=== PATIENT | male | born 1950 | race Caucasian/White ===

== ENCOUNTER 2023-12-24 01:10 | Emergency (ER) | payer MEDICARE, OTHER, SELFPAY ==
--- NOTE | 2023-12-24 01:13 | ED.GENMED ---
History of Present Illness
General
Chief Complaint: Heart Rate Problem
Time Seen by Provider: 12/24/23 01:13
History of Present Illness
History of Present Illness:
HPI: Patient presents with palpitations started about an hour prior to arrival, h/o atrial tachydysrhythmia, had cardioversion in May, then came here a few weeks later - admitted, had another cardioversion, then had ablation. Looks like AT today. He
takes Sotalol 80mg bid and Dilt 120mg bid (Toprol was stopped and dilt was decreased last admit).
EXAM:
GENERAL: Well appearing in no distress
HEENT: Moist oral mucosa
CARDIOVASCULAR: No murmurs, tachycardic heart rate, regular rhythm, No chest wall tenderness
PULMONARY: No respiratory distress, breath sounds are clear and equal
ABDOMEN: Soft with no peritoneal signs, no tenderness
NEUROLOGIC: Excellent strength all extremities, no coordination deficits
PSYCHIATRIC: Appropriate mental status, normal insight and judgement
EXTREMITIES: Nontender, no edema, moves all extremities equally
SKIN: No rash, no lesions
TIME OF INITIAL ENCOUNTER: 1 AM
NUMBER AND COMPLEXITY OF PROBLEMS ADDRESSED AT THE ENCOUNTER
� Chronic conditions affecting care: A-fib/flutter, CHF, high blood pressure, diabetes
� Acute Exacerbation and/or Progression of Chronic Illness: This is an acute but recurring problem
� Differential Diagnosis includes: Atrial dysrhythmia, electrolyte abnormality, ACS unlikely
AMOUNT AND/OR COMPLEXITY OF DATA TO BE REVIEWED AND ANALYZED
� I performed an independent evaluation of and my interpretation is:
EKG: Atrial tachycardia, rate of 107
CT:
X-rays:
Laboratory Studies: Chemistries including magnesium unremarkable, troponin negative
Other:
� Review of other/old records: I reviewed records�it appears he was cardioverted on 05/22 and 06/06 but then came back in cardiology recommended admission. I reviewed discharge summary from this past June�at that time the
patient came to the ER with shortness of breath and has had 'complex atrial tachyarrhythmia and underwent multiple medications, ablation, cardioversion in the past'. Records indicate the patient has been on Tikosyn, Amio, sotalol in the past
� Clinical information was obtained by an independent historian: Spoke to the son at bedside
� Prescriptions/Medications Considered but not given:
� Further testing considered but not performed:
RISK OF COMPLICATIONS AND/OR MORBIDITY OR MORTALITY OF PATIENT MANAGEMENT
� Social determinants of health affecting care: Lives at home
� Discussion with other providers: I discussed case with Dr. Novak at 2:10 AM�he recommends electrical cardioversion then resume anticoagulation immediately.
� Escalation of care including admission/observation vs risk of discharge considered: I reviewed patient's records extensively. He appears to be rather complex from a rhythm standpoint. He states he has been taking sotalol and
diltiazem. Dr. Novak recommends electrical cardioversion�patient signed form consent at 2:20 a.m. cardioversion performed at 2:26 AM without difficulty. Repeat EKG shows sinus rhythm rate of 66. Patient primarily concerned of anxiety/insomnia
when going home. I prefer to hold off on any sedative since he just had procedural sedation now.
Past History
Past History
ED Past Medical History: Arrthythmia, GERD, HTN, NIDDM and Other
ED Past Surgical History: Cardiac and Orthopedic
Social History
Tobacco: Former smoker
Alcohol: Occasional
Drug: None
Personal:
Living: with family
Employment: Retired
Family History
Family History: Other (Noncontributory)
Phy Exam
Physical Exam
Physical Exam:
See HPI
Course
Orders/Labs/Results
Orders:
Orders
12/24/23 01:13
Electrocardiogram (*1) Urgent
Reason for Study: Atrial Flutter
EKG- Treatment ONCE
12/24/23 01:40
Basic Metabolic Panel Urgent
Complete Blood Count/With Diff Urgent
Magnesium Urgent
Troponin I Q6H
12/24/23 01:45
Diltiazem 125 mg/125 ml Nss [Cardizem] 125 mg in 125 ml IV PER PROTOCOL
Initial dose in mg/hr, then titrate:: 10
Titrate to keep:: Heart rate 80-100 bpm
Titrate by mg/hr:: 5 mg/hr
Frequency of titrations (minutes):: 15
Maximum dose in mg/hr:: 15
12/24/23 02:19
Propofol [Diprivan] 20 ml .ROUTE .STK-MED
12/24/23 02:32
ASA Classification Routine
Propofol [Diprivan] 40 mg IV NOW STA
12/24/23 02:34
Rivaroxaban [Xarelto] 20 mg PO NOW STA
12/24/23 07:30
Troponin I Q6H
12/24/23 13:30
Troponin I Q6H
12/24/23 19:30
Troponin I Q6H
Abnormal Lab Results
12/24/23
01:40
RBC 4.40 L 10^6/uL
(4.70-6.10)
Absolute Monos (auto) 1.0 H 10^3/uL
(0.1-0.6)
Monocytes % 11.9 H %
(1.7-9.3)
Glucose 111 H mg/dl
(70-99)
12/24/23 01:40
12/24/23 01:40
Vital Signs
Initial and Last Documented VS:
Initial Vital Signs
Temp Pulse Resp BP Pulse Ox
97.5 F 110 18 118/80 97
12/24/23 01:14 12/24/23 01:14 12/24/23 01:14 12/24/23 01:14 12/24/23 01:14
Last Documented Vital Signs
Temp Pulse Resp BP Pulse Ox
98.6 F 63 20 107/68 98
12/24/23 02:25 12/24/23 02:47 12/24/23 02:47 12/24/23 02:47 12/24/23 02:47
Procedures
Cardioversion
Indication:: Other (Atrial tachycardia)
Performed by:: , Dr. Can
Synchronized?: Yes
Energy Used: 200 joules
Number of attempts: 1
Successful?: Yes
ASA Risk Score: Class III
Any reaction or bad outcome to prior sedation/anesthesia?: No history of a reaction
Sedation level to be attained: moderate
Chart and allergies reviewed: Yes
Patient reassessed prior to sedation: Yes
Time out completed at (validating right patient & procedure): 02:25
History of difficult intubation: No
Airway free of obstruction: Yes
Patient has a gag reflex: Yes
Patient is able to open mouth: Yes
Patient has no dentures: Yes
Patient has no loose teeth: Yes
Medication administered by Provider during Moderate Sedation: IV Propofol (mg) (40)
Total dose administered: 40
Time drug administered: 02:26
Start Time: 02:26
Stop Time: 02:31
*Critical Care Note
Total Time (30-74mins, 75-104mins- exclusive of procedures): Not Applicable
ED Attending Note
-
Portions of this chart may have been created with voice recognition software.� Occasional wrong word or��sound alike� substitutions may have occurred due to the inherent limitations of voice recognition software.
Discharge Plan
Departure
Patient Disposition: Home (Routine Discharge)
Date of Disposition: 12/24/23
Time of Disposition: 02:36
Patient with high blood pressure during this ER visit?: Yes
Discharge Problem:
Atrial tachycardia
Instructions: Atrial Fibrillation and Atrial Flutter ED
Prescriptions:
New
Xarelto 20 mg tablet
20 mg PO QPM Qty: 30 0RF
No Action
Probiotic 3 billion cell Capsule
3,000 mmu cells PO DAILY
latanoprost 0.005 % Drops
1 drp BOTH EYES HS
loratadine [Claritin] 10 mg Tablet
10 mg PO DAILY
omeprazole 40 mg Capsule,Delayed Release(Dr/Ec)
40 mg PO DAILY@1730
diltiazem HCl 120 mg Capsule,Extended Release 24 Hr
120 mg PO BID
sotalol 80 mg Tablet
80 mg PO BID
famotidine 20 mg Tablet
20 mg PO DAILY
aspirin 81 mg Tablet,Delayed Release (Dr/Ec)
81 mg PO DAILY@1730
lisinopril 5 mg tablet
5 mg PO DAILY
Activity Restrictions/Additional Instructions:
Your initial EKG showed atrial tachycardia. I spoke to Dr. Novak who recommended electrical cardioversion�this was performed successfully. You must go back on Xarelto. I am sending a prescription to your pharmacy. Next dose Friday evening.
Consider taking [id number] Unisom (the type with doxylamine as the active ingredient) at night to help sleep.
Interventions
Interventions:
*Neglect/Abuse Screening Last Done: 12/24/23 01:19
ED- Fall Risk Assessment Last Done: 12/24/23 01:45
*ED COVID-19 Vaccine History Last Done: 12/24/23 01:45
ED- Cardiac Assessment Last Done: 12/24/23 01:45
ED- Pulmonary Assessment Last Done: 12/24/23 01:45
[2023-12-24 01:58] LABS: % Basophils 0.6 % (0-2); % Eosinophils 2.5 % (0-6); % Immature Granulocytes 0.2 % (0-0.5); % Lymphocytes 28.9 % (20.5-51.1); % Monocytes 11.9 % (1.7-9.3); % Neutrophils 55.9 % (42.2-75.2); Absolute Basophils 0.1 10^3/uL (0-0.2); Absolute Eosinophils 0.2 10^3/uL (0-0.7); Absolute Lymphocytes 2.4 10^3/uL (1.2-3.4); Absolute Neutrophils 4.7 10^3/uL (1.4-6.5); Hematocrit 39.1 % (39.0-52.0); Hemoglobin 13.2 g/dL (13.0-18.0); Mean Corp Hgb Conc. 33.8 g/dL (33.0-37.0); Mean Corpuscular Volume 88.9 fL (80.0-94.0); Mean Platelet Volume 10.2 fL (7.4-10.4); Nucleated Red Blood Cells % 0 % (-); Platelet Count 182 10^3/uL (130-400); Red Cell Dist. Width 12.4 % (11.5-14.5); White Blood Cell Count 8.4 10^3/uL (4.8-10.8)
[2023-12-24] MEDS: CARDIZEM 125 IV (02:05)
[2023-12-24] MEDS: CARDIZEM IV (02:08)
[2023-12-24 02:10] LABS: Blood Urea Nitrogen 17 mg/dl (9-20); Calcium 8.9 mg/dl (8.4-10.2); Carbon Dioxide 24 mmol/L (22-30); Chloride 107 mmol/L (98-107); Glucose 111 mg/dl (70-99); Magnesium 1.9 mg/dl (1.6-2.3); Potassium 3.9 mmol/L (3.5-5.1); Sodium 136 mmol/L (135-145); eGFR > 60.00
[2023-12-24 02:16] LABS: Troponin I < 0.012 ng/ml
[2023-12-24] MEDS: DIPRIVAN 40 MG IV (02:27)
[2023-12-24] MEDS: XARELTO 20 MG PO (03:19)
== END 2023-12-24 03:53 | disposition home or self-care (01) ==
LOC: EMR 01:10
PROVIDERS: EMERGENCY PHYSICIAN Emergency Medicine; FAMILY PHYSICIAN Family Medicine
DX: I47.19 Other supraventricular tachycardia (principal)
CPT/HCPCS: 99283; 96374; 96375; 80048; 83735; 84484; 85025; 93005

== ENCOUNTER 2023-12-27 20:06 | Emergency (ER) | payer MEDICARE, OTHER, SELFPAY ==
[2023-12-27 20:21] LABS: % Basophils 0.7 % (0-2); % Eosinophils 2.5 % (0-6); % Immature Granulocytes 0.3 % (0-0.5); % Lymphocytes 22.7 % (20.5-51.1); % Monocytes 11.6 % (1.7-9.3); % Neutrophils 62.2 % (42.2-75.2); Absolute Basophils 0.1 10^3/uL (0-0.2); Absolute Eosinophils 0.2 10^3/uL (0-0.7); Absolute Lymphocytes 2.2 10^3/uL (1.2-3.4); Absolute Monocytes 1.1 10^3/uL (0.1-0.6); Hematocrit 43.4 % (39.0-52.0); Hemoglobin 14.6 g/dL (13.0-18.0); Mean Corp Hgb Conc. 33.6 g/dL (33.0-37.0); Mean Corpuscular Hgb 30.6 pg (27.0-31.0); Mean Platelet Volume 9.6 fL (7.4-10.4); Nucleated Red Blood Cells % 0 % (-); Platelet Count 193 10^3/uL (130-400); Red Blood Cell Count 4.77 10^6/uL (4.70-6.10); Red Cell Dist. Width 12.4 % (11.5-14.5); White Blood Cell Count 9.6 10^3/uL (4.8-10.8)
--- NOTE | 2023-12-27 20:33 | ED.GENMED ---
History of Present Illness
General
Chief Complaint: Cardiac Symptoms
Source: patient
Exam Limitations: none
Time Seen by Provider: 12/27/23 20:17
Travel History
Have you had any contact with someone who has COVID-19?: No
Do you have any symptoms of coronavirus? Fever > 100 degrees, chills, cough, shortness of breath, sore throat, loss of taste or smell, muscle aches, or headache?: No
History of Present Illness
History of Present Illness:
See MDM
Past History
Past History
ED Past Medical History: Arrthythmia, GERD, HTN, NIDDM and Other
ED Past Surgical History: Cardiac and Orthopedic
Social History
Tobacco: Former smoker
Alcohol: Occasional
Drug: None
Personal:
Living: with family
Employment: Retired
Family History
Family History: Other (Noncontributory)
Phy Exam
Physical Exam
Physical Exam:
See MDM
Course
Orders/Labs/Results
Orders:
Orders
12/27/23 20:11
Electrocardiogram (*1) Urgent
Reason for Study: Palpitations
EKG- Treatment ONCE
12/27/23 20:15
Complete Blood Count/With Diff Urgent
Comprehensive Metabolic Panel Urgent
Troponin I Urgent
Abnormal Lab Results
12/27/23
20:15
Absolute Monos (auto) 1.1 H 10^3/uL
(0.1-0.6)
Monocytes % 11.6 H %
(1.7-9.3)
Glucose 107 H mg/dl
(70-99)
12/27/23 20:15
12/27/23 20:15
Vital Signs
Initial and Last Documented VS:
Initial Vital Signs
Temp Pulse Resp BP Pulse Ox
97.6 F 77 16 134/72 97
12/27/23 20:08 12/27/23 20:08 12/27/23 20:08 12/27/23 20:08 12/27/23 20:08
Last Documented Vital Signs
Temp Pulse Resp BP Pulse Ox
97.6 F 76 15 134/72 97
12/27/23 20:08 12/27/23 20:15 12/27/23 20:15 12/27/23 20:10 12/27/23 20:08
MDM/Problems Addressed
Differential Diagnosis Includes:
HPI and MDM Narrative:
73-year-old male presenting back to the emergency department with palpitations. Patient has a longstanding history of A-fib and a flutter and has had 4 ablations in the past. He was recently seen in the emergency department last week and
cardioverted and placed back on Xarelto. He is currently on 120 mg diltiazem twice daily and 80 mg sotalol twice daily. Patient states his stitch bonding machine operator had mentioned no more ablations and is recommending pacemaker. Patient states he is not ready
with this plan. Patient felt indigestion and chest pressure while at home. He believes he was back in a flutter. His heart rate was in the 140s. It resolved on its own within 20 minutes.
Physical exam
General: Well appearing and non-toxic
HEENT: protecting airway
Neck: appears supple
CV: No evidence of cyanosis. Regular rate and rhythm
Resp: No accessory muscle use
Abd: Non-distended
Extremities: No deformities
Neuro: alert
Psych: Agitated and frustrated
Skin: Intact
Problems Addressed including Acute and Chronic Conditions affecting care:
1. Paroxysmal A-fib
Acuity: acute
Prognosis: stable
Details: Patient auto converted. EKG is sinus rhythm. Patient demanding to speak to cardiology. I will discuss the case with cardiology first
2. [ ]
Acuity: acute
Prognosis: stable
Details:
3. [ ]
Acuity: acute
Prognosis: stable
Details:
4. [ ]
Acuity: acute
Prognosis: stable
Details:
5. [ ]
Acuity:
Prognosis:
Details:
Updates
Case discussed with cardiology who agrees with not making any changes to his blood pressure medicine regimens and to have patient call his stitch bonding machine operator first thing Friday to discuss options moving forward
Patient is frustrated with this response and asked to be discharged as soon as possible. Patient has remained in sinus rhythm throughout his ER stay
Differential Diagnosis (but not limited to): Paroxysmal A-fib, atrial tachycardia, PVCs
Testing considered: Chest x-ray but he denies chest pain shortness of breath
Drug therapy (if applicable): OTC meds, please see d/c instruction regarding Rx drugs
Amount and/or Complexity of Data Reviewed
Clinical info obtained from: Patient
External data reviewed: N/A
Labs I independently reviewed (but not limited to): Troponin negative
Radiology: N/A
Pulse Ox: not hypoxic
EKG independently reviewed: Sinus rhythm, PACs, normal axis, no STEMI
Service Station Console Operator: Sinus rhythm
Critical Care: N/A
Risk of Complication:
Social Determinants of health: Good social support
Discussed with other providers: Cardiology
Escalation of Care includes Admit/Obs: After being observed in the Emergency Department, pt stable for discharge.
Occasional wrong word or 'sound a like' substitutions may have occurred due to the inherent limitations of voice recognition software. Read the chart carefully and recognize, using context, where substitutions have occurred.
*Critical Care Note
Total Time (30-74mins, 75-104mins- exclusive of procedures): Not Applicable
ED Attending Note
-
Portions of this chart may have been created with voice recognition software.� Occasional wrong word or��sound alike� substitutions may have occurred due to the inherent limitations of voice recognition software.
Discharge Plan
Departure
Patient Disposition: Home (Routine Discharge)
Date of Disposition: 12/27/23
Time of Disposition: 21:12
Patient with high blood pressure during this ER visit?: No
Discharge Problem:
Paroxysmal atrial fibrillation
Prescriptions:
No Action
Probiotic 3 billion cell Capsule
3,000 mmu cells PO DAILY
latanoprost 0.005 % Drops
1 drp BOTH EYES HS
loratadine [Claritin] 10 mg Tablet
10 mg PO DAILY
omeprazole 40 mg Capsule,Delayed Release(Dr/Ec)
40 mg PO DAILY@1730
diltiazem HCl 120 mg Capsule,Extended Release 24 Hr
120 mg PO BID
sotalol 80 mg Tablet
80 mg PO BID
famotidine 20 mg Tablet
20 mg PO DAILY
aspirin 81 mg Tablet,Delayed Release (Dr/Ec)
81 mg PO DAILY@1730
lisinopril 5 mg tablet
5 mg PO DAILY
Xarelto 20 mg tablet
20 mg PO QPM Qty: 30 0RF
Referrals:
Graham Adams MD [Family Provider] -
Activity Restrictions/Additional Instructions:
As we discussed, please call your cardiology office first thing Friday morning. Please explain that you continue to have recurrent episodes of A-fib/A flutter. Please explain you came back to the emergency department and the on-call stitch bonding machine operator
suggested that you follow-up with your stitch bonding machine operator soon as possible.
Please return for any worsening symptoms.
You may return at any time if you have further concerns.
Interventions
Interventions:
*Risk Screen - Suicide Last Done: 12/27/23 20:08
*General Assessment Last Done: 12/27/23 20:08
*Neglect/Abuse Screening Last Done: 12/27/23 20:08
*ED COVID-19 Vaccine History Last Done: 12/27/23 20:08
ED- Pulmonary Assessment Last Done: 12/27/23 20:23
ED- Cardiac Assessment Last Done: 12/27/23 20:23
[2023-12-27 20:44] LABS: Troponin I < 0.012 ng/ml
[2023-12-27 20:48] LABS: ALT (SGPT) 12 U/L (0-50); AST (SGOT) 19 U/L (17-59); Albumin 4.2 g/dl (3.5-5.0); Alkaline Phosphatase 62 U/L (38-126); Blood Urea Nitrogen 20 mg/dl (9-20); Carbon Dioxide 24 mmol/L (22-30); Chloride 105 mmol/L (98-107); Glucose 107 mg/dl (70-99); Potassium 3.5 mmol/L (3.5-5.1); Sodium 137 mmol/L (135-145); Total Bilirubin 0.4 mg/dl (0.2-1.3); Total Protein 6.8 g/dl (6.3-8.2); eGFR > 60.00
== END 2023-12-27 21:25 | disposition home or self-care (01) ==
LOC: EMR 20:06
PROVIDERS: EMERGENCY PHYSICIAN Student in an Organized Health Care Education/Training Program; FAMILY PHYSICIAN Family Medicine
DX: I48.0 Paroxysmal atrial fibrillation (principal); Z87.891 Personal history of nicotine dependence; Z79.01 Long term (current) use of anticoagulants
CPT/HCPCS: 99284; 80053; 84484; 85025; 93005

== ENCOUNTER 2024-04-08 22:55 | Inpatient (IN) | payer MEDICARE, OTHER, SELFPAY ==
[2024-04-08 18:43] VITALS: BP 118/54
[2024-04-08 18:47] VITALS: BMI 35.4
[2024-04-08 18:51] VITALS: BP 118/54
[2024-04-08 19:00] VITALS: BP 127/64
[2024-04-08 19:07] LABS: % Basophils 0.2 % (0-2); % Eosinophils 1.3 % (0-6); % Immature Granulocytes 0.8 % (0-0.5); % Lymphocytes 14.5 % (20.5-51.1); % Neutrophils 68.2 % (42.2-75.2); Absolute Eosinophils 0.2 10^3/uL (0-0.7); Absolute Immature Granulocytes 0.1 10^3/uL (0-0.05); Absolute Lymphocytes 1.7 10^3/uL (1.2-3.4); Absolute Monocytes 1.8 10^3/uL (0.1-0.6); Absolute Neutrophils 8.2 10^3/uL (1.4-6.5); Hematocrit 35.2 % (39.0-52.0); Hemoglobin 11.9 g/dL (13.0-18.0); Mean Corp Hgb Conc. 33.8 g/dL (33.0-37.0); Mean Corpuscular Hgb 29.6 pg (27.0-31.0); Mean Corpuscular Volume 87.6 fL (80.0-94.0); Nucleated Red Blood Cells % 0 % (-); Platelet Count 157 10^3/uL (130-400); Red Blood Cell Count 4.02 10^6/uL (4.70-6.10); Red Cell Dist. Width 13.6 % (11.5-14.5)
[2024-04-08 19:21] LABS: INR 1.23; PT 15.5 Sec (11.4-14.6)
[2024-04-08 19:23] LABS: ALT (SGPT) 10 U/L (0-50); AST (SGOT) 13 U/L (17-59); Albumin 3.3 g/dl (3.5-5.0); Alkaline Phosphatase 63 U/L (38-126); Blood Urea Nitrogen 22 mg/dl (9-20); Calcium 8.3 mg/dl (8.4-10.2); Carbon Dioxide 23 mmol/L (22-30); Chloride 106 mmol/L (98-107); Estimated Creatinine Clearance 85 ml/min; Glucose 130 mg/dl (70-99); Potassium 4.2 mmol/L (3.5-5.1); Sodium 134 mmol/L (135-145); Total Bilirubin 0.8 mg/dl (0.2-1.3); Total Protein 5.7 g/dl (6.3-8.2); eGFR > 60.00
--- NOTE | 2024-04-08 19:24 | ED.GENMED ---
History of Present Illness
General
Chief Complaint: Chest Pain
Source: patient
Exam Limitations: none
Time Seen by Provider: 04/08/24 18:55
History of Present Illness
History of Present Illness:
74-year-old male with history of atrial fibrillation and flutter history of cardioversions in the past presents complaining of onset of chest pain while driving home after visiting his in this. It was a pressure pain that radiated to his
shoulder blades and up his neck. He became sweaty with this pain. He got home and called EMS and was brought here. En route he was given 324 mg of aspirin and 1 sublingual nitro. He states there is improvement of his symptoms but his symptoms
are completely gone. No prior history of coronary artery disease. No pleuritic pain. He states his is under hospice care as his son is also admitted to the hospital. He is under significant mental stress.
Past History
Past History
ED Past Medical History: Arrthythmia, GERD, HTN, NIDDM and Other
ED Past Surgical History: Cardiac and Orthopedic
Social History
Tobacco: Former smoker
Alcohol: Occasional
Drug: None
Personal:
Living: with family
Employment: Retired
Family History
Family History: Other (Noncontributory)
Phy Exam
Physical Exam
Physical Exam:
General: Well-appearing slightly tearful male no acute respiratory distress
HEENT: Normocephalic atraumatic
Heart: Regular rate and rhythm no murmurs
Lungs: Clear no wheeze or rales
Extremities: No cyanosis or edema
Scores
Heart Score for Chest Pain Patients
STEMI patient?: No
History: Moderately Suspicious
ECG: Nonspecific Repolarization
Age: >/= 65 years
Risk Factors: 1 or 2 Risk Factors
Troponin: >1 - <3 x Normal Limit
Heart Score for Chest Pain Patients: 6
Heart Score Risk: 20.3% MACE over next 6 weeks
Course
Orders/Labs/Results
Orders:
Orders
04/08/24 18:45
EKG [Electrocardiogram (*1)] Urgent
Reason for Study: Chest Pain
04/08/24 18:46
EKG- Treatment ONCE
04/08/24 18:59
Complete Blood Count/With Diff Urgent
Comprehensive Metabolic Panel Urgent
PT/INR [Prothrombin Time] Urgent
Troponin I Urgent
04/08/24 19:23
CT Chest Angio W/wo Iv Contras Urgent
Comment:
Reason For Exam: chest and back pain, eval for dissection
Diphenhydramine [Benadryl] 50 mg IV NOW STA
Hydrocortisone Sod Succinate [Solu-Cortef] 200 mg IV NOW STA
04/08/24 19:26
Interrogate Pacemaker- Treatment ONCE
04/08/24 21:23
Troponin I Urgent
04/08/24 22:08
Electrocardiogram (*1) Urgent
Reason for Study: Chest Pain
EKG- Treatment ONCE
04/08/24 22:19
PTT Urgent
Comment: Obtain baseline before beginning heparin infusion if not already collected
Heparin 4,000 units IV NOW STA
Pharmacy Request to Place See Dose Instructions PO NOW STA
Discontinue all Active Warfarin orders?: Yes
Nursing to Place Non Medication Order As Directed
Physician Order: PTT 6 hours after initial start of Heparin infusion
04/08/24 22:30
Heparin 29500 Units/250 ml 25,000 units in 250 ml IV PER PROTOCOL
Weight to be used for heparin protocol in kilograms (kg):: 96.4
Protocol:: Cardiac Tx/Acute Coronary
PTT Goal Range to be used:: PTT 73 to 111 seconds
Order type:: Initial
INITIAL Infusion Dose (UNITS/KG/hr) & then follow protocol:: 12 units/kg/hr
Infusion Dose in UNITS/hr & then follow protocol (UNITS/hr):: 1,000
INFUSION RATE in mL/hr & then follow protocol (mL/hr):: 10
PTT less than or equal to 64 seconds:: Increase rate by 200 units/hr (+ 2 mL/hr)
PTT 64.1 to 72.9 seconds:: Increase rate by 100 units/hr (+ 1 mL/hr)
PTT 73 to 111 seconds:: Target Range. No change in rate.
PTT 111.1 to 130.9 seconds:: Decrease rate by 100 units/hr (- 1 mL/hr)
PTT 131 to 199.9 seconds:: HOLD for 1 hr. Then decrease rate by 200 units/hr (- 2 mL/hr)
PTT greater than or equal to 200 seconds:: HOLD for 2 hrs & Notify Provider. Then decrease by 200 units/hr (-
2 mL/hr)
Lab follow-up:: Each change, PTT q6h until 2 consecutive are therapeutic. Then PTT
daily.
04/08/24 23:[address] See Dose Instructions IV DIRECTED
Abnormal Lab Results
04/08/24 04/08/24
18:59 21:23
WBC 12.0 H 10^3/uL
(4.8-10.8)
RBC 4.02 L 10^6/uL
(4.70-6.10)
Hgb 11.9 L g/dL
(13.0-18.0)
Hct 35.2 L %
(39.0-52.0)
Abs Immat Gran (auto) 0.1 H 10^3/uL
(0-0.05)
Absolute Neuts (auto) 8.2 H 10^3/uL
(1.4-6.5)
Absolute Monos (auto) 1.8 H 10^3/uL
(0.1-0.6)
Immature Gran % 0.8 H %
(0-0.5)
Lymphocytes % 14.5 L %
(20.5-51.1)
Monocytes % 15.0 H %
(1.7-9.3)
PT 15.5 H Sec
(11.4-14.6)
Sodium 134 L mmol/L
(135-145)
BUN 22 H mg/dl
(9-20)
Glucose 130 H mg/dl
(70-99)
Calcium 8.3 L mg/dl
(8.4-10.2)
AST 13 L U/L
(17-59)
Troponin I 1.190 H* D ng/ml
Total Protein 5.7 L g/dl
(6.3-8.2)
Albumin 3.3 L g/dl
(3.5-5.0)
04/08/24 18:59
04/08/24 18:59
Vital Signs
Initial and Last Documented VS:
Initial Vital Signs
Pulse Resp BP Pulse Ox
66 18 118/54 98
04/08/24 18:43 04/08/24 18:43 04/08/24 18:43 04/08/24 18:43
Last Documented Vital Signs
Temp Pulse Resp BP Pulse Ox
99.4 F 61 11 138/60 95
04/08/24 18:51 04/08/24 22:15 04/08/24 22:15 04/08/24 22:00 04/08/24 21:15
MDM/Problems Addressed
Differential Diagnosis Includes:
Chest pain with shoulder and neck pain. Consider ACS versus dissection versus anxiety reaction
Will check EKG labs and CT angio of chest
*Critical Care Note
Total Time (30-74mins, 75-104mins- exclusive of procedures): Not Applicable
Update Note
Update Note:
CT angio of the chest was negative for dissection. Initial troponin was undetectable however repeat troponin was 1.190. Patient reevaluated. Still pain-free. Heparin ordered. Will admit to hospital for chest pain and elevated troponin possible
non-STEMI
ED Attending Note
-
Portions of this chart may have been created with voice recognition software.� Occasional wrong word or��sound alike� substitutions may have occurred due to the inherent limitations of voice recognition software.
Discharge Plan
Departure
Patient Disposition: Admit
Date of Disposition: 04/08/24
Time of Disposition: 22:24
Admit to: IVU
Presentation/result/management discussed w/ accepting MD/DO: Hospitalist
Discharge Problem:
Chest pain, Elevated troponin
Prescriptions:
No Action
Probiotic 3 billion cell Capsule
3,000 mmu cells PO DAILY
latanoprost 0.005 % Drops
1 drp BOTH EYES HS
loratadine [Claritin] 10 mg Tablet
10 mg PO DAILY
omeprazole 40 mg Capsule,Delayed Release(Dr/Ec)
40 mg PO DAILY@1730
diltiazem HCl 120 mg Capsule,Extended Release 24 Hr
120 mg PO BID
sotalol 80 mg Tablet
80 mg PO BID
famotidine 20 mg Tablet
20 mg PO DAILY
aspirin 81 mg Tablet,Delayed Release (Dr/Ec)
81 mg PO DAILY@1730
lisinopril 5 mg tablet
5 mg PO DAILY
Xarelto 20 mg tablet
20 mg PO QPM Qty: 30 0RF
Patient Comments:
Pt stopped medication 7/3 per doctor.
furosemide 40 mg Tablet
40 mg PO DAILY PRN (Reason: swelling )
acetaminophen [Tylenol] 325 mg Tablet
650 mg PO Q6H PRN (Reason: pain )
tadalafil 5 mg Tablet
5 mg PO DAILY
Referrals:
Graham Adams MD [Family Provider] -
Interventions
Interventions:
*Risk Screen - Suicide Last Done: 04/08/24 20:38
*General Assessment Last Done: 04/08/24 20:39
*Neglect/Abuse Screening Last Done: 04/08/24 20:38
ED- Fall Risk Assessment Last Done: 04/08/24 19:05
*ED COVID-19 Vaccine History Last Done: 04/08/24 20:39
ED- Cardiac Assessment Last Done: 04/08/24 19:05
Discharge Date and Time
Print Language: [id number]
[2024-04-08] MEDS: SOLU-CORTEF 200 MG IV (19:26)
[2024-04-08] MEDS: BENADRYL 50 MG IV (19:26)
[2024-04-08 19:31] LABS: Troponin I < 0.012 ng/ml
[2024-04-08 20:00] VITALS: BP 126/56
[2024-04-08 21:26] VITALS: BP 129/62
[2024-04-08 22:00] VITALS: BP 138/60
--- NOTE | 2024-04-08 22:30 | HPS.HSE ---
Family Physician
-
Family Physician: Graham Adams
Chief Complaint
-
chest pain
History of Present Illness
Mr. Jacobo Carrero is a 74 yo man with hx paroxysmal atrial fibrillation/flutter on Xarelto, essential HTN, GERD, NIDDM presents to the ER with chest pain.
Patient was leaving his who is now in hospice. On the drive home he started experiencing chest tightness that stretched across chest, radiated to back and up neck. Once he got home he called 911 and was given aspirin and nitro. Post these
interventions, pain resolved. He currently reports no pain.
He denies current fevers/chills. No nausea/vomiting. No abdominal pain. No LE swelling, no rash.
Patient states his son now is also hospitalized. He feels very stressed and overwhelmed. He took an Ativan last night to help him sleep. Per patient, this was recently prescribed by his PCP.
Patient saw his scientologist yesterday. He remains in sinus rhythm (has hx PVI and ablation) and was told he can stop the Xarelto so he missed one dose yesterday.
Medical History
Past Medical History
Past Medical History: Reports Other
Additional Past Medical History:
paroxysmal atrial flutter, history of atrial fibrillation with PVI x3, essential hypertension, ZARIA not compliant with CPAP, mitral stenosis, obesity, osteoarthritis, history of left TKR
Past Surgical History: Reports Other
Social History
Tobacco: Non-smoker
Alcohol: None
Drug: None
Living: With Family
Family History
Family History: Not pertinent
Allergies / Home Medications
Allergies reflects when Allergies were last updated in [employer].
Home Medications with original date entered in [employer]
Allergy/Medication List:
Allergies
Allergy/AdvReac Type Severity Reaction Status Date / Time
amiodarone Allergy sleeplessness, Verified 12/24/23 01:23
acid reflux
azithromycin Allergy Loss of Verified 12/24/23 01:23
smell,
loss of
taste,
metal
taste in
mouth
dofetilide [From Tikosyn] Allergy GERD Verified 12/24/23 01:23
Iodinated Contrast Media Allergy Itching Verified 12/24/23 01:23
[Iodinated Contrast- Oral
and IV Dye]
iodine Allergy Itching Verified 12/24/23 01:23
Home Medications
lactobacillus combination no.4 3 billion cell capsule (Probiotic) 3,000 mmu cells PO DAILY Supplement 12/26/22
latanoprost 0.005 % eye drops 1 drp BOTH EYES HS Eye Condition 04/17/23
loratadine 10 mg tablet (Claritin) 10 mg PO DAILY Allergies 04/18/23
diltiazem HCl 120 mg capsule,24 hr,extended release 120 mg PO BID Heart Disease/Condition 06/09/23
omeprazole 40 mg capsule,delayed release 40 mg PO DAILY@1730 GERD 06/09/23
famotidine 20 mg tablet 20 mg PO DAILY 06/17/23
sotalol 80 mg tablet 80 mg PO BID 06/17/23
aspirin 81 mg tablet,delayed release 81 mg PO DAILY@1730 10/03/23
lisinopril 5 mg tablet 5 mg PO DAILY 10/03/23
rivaroxaban 20 mg tablet (Xarelto) 20 mg PO QPM #30 tabs 12/24/23
acetaminophen 325 mg tablet (Tylenol) 650 mg PO Q6H PRN pain 04/08/24
furosemide 40 mg tablet 40 mg PO DAILY PRN swelling 04/08/24
tadalafil 5 mg tablet 5 mg PO DAILY 04/08/24
Review of Systems
-
History Source: Patient
A 12 point ROS was completed and negative except as noted: Yes
Physical Exam
Vital Signs
Vital Signs
Temp Pulse Resp BP Pulse Ox
99.4 F 61 11 138/60 95
04/08/24 18:51 04/08/24 22:15 04/08/24 22:15 04/08/24 22:00 04/08/24 21:15
Physical Exam
General: No Apparent Distress and Other (appears overwhelmed )
HEENT: PERRLA
Respiratory: Clear; No Wheezes
Cardiac: S1/S2 and Regular Rhythm
GI: Soft and Non Tender
Musculoskeletal: No Edema
Skin: Warm and Dry; No Rash
Neuro: AO x 3
Psych: Calm
Laboratory Results
-
04/08/24 18:59
04/08/24 18:59
Laboratory Results
PT 15.5 Sec (11.4-14.6) H 04/08/24 18:59
INR 1.23 04/08/24 18:59
Total Bilirubin 0.8 mg/dl (0.2-1.3) 04/08/24 18:59
AST 13 U/L (17-59) L 04/08/24 18:59
ALT 10 U/L (0-50) 04/08/24 18:59
Alkaline Phosphatase 63 U/L (38-126) 04/08/24 18:59
Troponin I 1.190 ng/ml H* D 04/08/24 21:23
Data Reviewed
-
Diagnostic Radiology: Report Reviewed by me
Lab Data: Labs Reviewed by me
Impression/Plan
-
Mr. Jacobo Carrero is a 74 yo man with hx paroxysmal atrial fibrillation/flutter on Xarelto, essential HTN, GERD, NIDDM presents to the ER with chest pain. Pain associated with diaphoresis s/p aspirin 325mg and 1sublingual nitro by EMS. Patient
is currently under significant stress as is in hospice care and son is admitted to the hospital. Presentation may be stress-induced (Takotsubo) versus CAD.
Triage VS: P 66, RR 18, BP 118/54, SpO2 98%
LABS: WBC 12, Hg 11.9, PLT 157, Na 134, K+ 4.2, BUN 22, Cr 0.8, Glucose 130, T. Bili 0.8, AST 13, ALT 10, Trop 0.012 --> 1.190
EKG: NSR @ 61, no ST depression/elevation, TWF V3
CTA negative for dissection
NSTEMI
-patient with chest pain and Troponin elevation to 1.190; CTA without PE/dissection. Patient undergoing significant stress in his life.
-s/p aspirin and nitro given by EMS
-admit to IVU
-IV heparin gtt initiated in the ER, will continue
-daily aspirin (patient does not take at home)
-start statin
-TTE
-trend Troponions
-NPO after MN for possible cardiac cath
-cardiology consult (Patient sees Dr. Jairo Vázquez)
-will give small bolus now as patient may get second dye load tomorrow (has allergy, will require steroids and benadryl). renal function normal
Essential HTN
-hold lisinopril for likely second contrast load
-continue INDUSTRIAL SAFETY AND HEALTH SPECIALIST Diltiazem
Anxiety
-patient undergoing significant stress and anxiety in his life as is currently on hospice
-PCP recently prescribed ativan, will continue here at low dose PRN
Paroxysmal AFib
-hx PVI 2017, 2021, 2022; s/p cardioversion x 2 2022
-patient saw cariologist at [facility] and discussed stopping Xarelto
-patient has a loop recorder
-continue INDUSTRIAL SAFETY AND HEALTH SPECIALIST Diltiazem
-continue INDUSTRIAL SAFETY AND HEALTH SPECIALIST Sotalol
BPH
-INDUSTRIAL SAFETY AND HEALTH SPECIALIST Tadalafil
DVT PPx Heparin gtt
DNR - per patient and as written in his living will
76 minutes spent on patient evaluation, medical decision making, coordination of care
[2024-04-08] MEDS: HEPARIN 4000 UNITS IV (22:38)
[2024-04-08] MEDS: HEPARIN 25000 UNITS/250 ML IV (22:39)
[2024-04-08 22:45] LABS: APTT 34.9 Sec (23.4-35.0)
[2024-04-08] MEDS: NSS 500 IV (23:17)
[2024-04-09] VITALS (13 sets, daily range): BP systolic 109–133; BP diastolic 55–68; BMI 34.4
[2024-04-09] MEDS: ATIVAN 0.25 MG PO ×2 (01:39→21:20)
--- NOTE | 2024-04-09 04:57 | PTCARENOTE ---
Rec'd pt. into room 2243 from ED AAOx3, VSS, NSR on the monitor. Pt. denies any chest pain, states he hasn't had any since before he came to emergency room. Heparin drip running at 1000 units/hr; troponin and EKG completed as ordered. Troponin
resulted 5.33, covering hospitalist YESICA Alba notified. Pt. still chest pain free at this time. Pt. ambulatory with steady gait. Oriented to room and plan of care discussed, understanding verbalized. PRN HS Ativan given per pt's request for
sleep.
[2024-04-09 04:58] LABS: APTT 93.4 Sec (23.4-35.0)
[2024-04-09 04:59] LABS: Hemoglobin 11.5 g/dL (13.0-18.0); Mean Corp Hgb Conc. 32.9 g/dL (33.0-37.0); Mean Corpuscular Hgb 29.6 pg (27.0-31.0); Mean Corpuscular Volume 90.2 fL (80.0-94.0); Mean Platelet Volume 9.9 fL (7.4-10.4); Platelet Count 149 10^3/uL (130-400); Red Blood Cell Count 3.88 10^6/uL (4.70-6.10); Red Cell Dist. Width 13.8 % (11.5-14.5); White Blood Cell Count 9.3 10^3/uL (4.8-10.8)
[2024-04-09 05:16] LABS: Blood Urea Nitrogen 19 mg/dl (9-20); Calcium 8.4 mg/dl (8.4-10.2); Carbon Dioxide 24 mmol/L (22-30); Chloride 107 mmol/L (98-107); Estimated Creatinine Clearance 112 ml/min; Glucose 138 mg/dl (70-99); Potassium 4.7 mmol/L (3.5-5.1); Sodium 136 mmol/L (135-145); eGFR > 60.00
[2024-04-09] MEDS: BETAPACE 80 MG PO ×2 (08:49→20:15)
[2024-04-09] MEDS: LOW STRENGTH ASPIRIN 81 MG PO (08:49)
[2024-04-09] MEDS: DELTASONE 60 MG PO (08:49)
[2024-04-09] MEDS: CARDIZEM CD 120 MG PO (08:50)
[2024-04-09] MEDS: NSS 1000 IV ×2 (08:51→15:53)
--- NOTE | 2024-04-09 09:21 | CON.CAR ---
Addendum entered and electronically signed by Mattie Hay PA-C 04/09/24 13:54:
Records received and reviewed from [facility] including office visit 04/07/2024, ablation report 01/29/2024. He underwent repeat atypical flutter ablation 01/29/2024 with circuit going through large anterior left atrial scar and on the ridge between
the left pulmonary vein and appendage. Anterior mitral flutter line was also performed as well as empiric CTI line placed. Pulmonary vein and posterior perez were noted to be isolated from prior ablations. He has remained in sinus rhythm since
his ablation.
Addendum entered and electronically signed by Hernandez Acevedo MD 04/09/24 09:55:
74-year-old man with long history of atrial arrhythmia with PVI and acute HFpEF, currently under stress with and hospice who developed chest discomfort yesterday and presents with chest pain and troponin of 5. He was driving home from visiting
his with the onset of chest pain that went to back shoulders, etc. Initially he reports he was in A-fib but with controlled rates. He is comfortable now.
PMH: HFpEF, PVI with left atrial tachycardia ablation June 2023, more recently an ablation at [facility] in January of this year, prior PVI in 2017 and 2021, atypical atrial flutter, hypertension, obstructive sleep apnea,, LINQ monitor 2021, mild
mitral stenosis, obesity
PSH: Left total knee arthroplasty
Allergies: Amiodarone, azithromycin, dofetilide, IV contrast
SH: , retired
Outpatient meds: Reviewed
Current meds: IV heparin, Xalatan, Protonix, sotalol 80 twice daily, tadalafil 5 mg daily, aspirin 81 mg daily, atorvastatin 40 mg daily, diltiazem ER 120 mg daily
ROS negative except as above
122/60, pulse 61, resp rate 20, afebrile, head neck exam unremarkable, lungs clear, MR murmur, JVD okay, abdomen obese, extremities without edema, neuro nonfocal
Hemoglobin 11.5, white count 9.3
BUN and creatinine 19 and 0.6, potassium 4.7, troponin 5.2
ECG no acute changes, QT top normal or prolonged
Assessment:
Presumed non-ST segment elevation OK, peak troponin 5.3
Chronic HFpEF
Recurrent symptomatic paroxysmal atypical atrial flutter with RVR
Recurrent paroxysmal atrial fibrillation with prior PVI 2017, 04/2022, 12/26/22, 06/10/23, 01/29/[address]
chronic sotalol therapy
OAC recently discontinued 04/2024 as with loop recorder in place
HTN
ZARIA not compliant with CPAP
s/p Linq 08/2022
Mild Mitral stenosis by echo 2022
Obesity
OA s/p L TKR 04/30/23
GARCIA 06/06/23: EF 55%, left atrium dilated, mild mitral stenosis, mild to moderate MR, aortic sclerosis with trace AR, trace TR
Plan:
He presents with chest discomfort and a positive troponin in the setting of severe emotional distress. It seems most likely that this is a non-ST segment elevation OK, but Takotsubo cardiomyopathy is a possibility as well. There is no prior
history of obstructive CAD/ACS etc.
No evidence of pulmonary embolus.
Preliminary echo shows preserved LV function with moderate MR and mitral stenosis. Currently he is on Xarelto, we may need to consider whether warfarin should be substituted for Xarelto given the presence of atrial fibrillation, though presently he
is in sinus rhythm.
We will need to interrogate his Linq monitor.
Further management to be based upon the results of his catheterization.
Original Note:
Consultation
Consultation Request
Date/Time Consultation Performed: 04/09/24
Requesting Provider: Dr. Castellanos
Performing Provider: Mattie Hay PA-C for Dr. WILDA Acevedo
Reason for Consultation: CP
Medical History
-
Chief Complaint: CP
History of Present Illness:
Patient is a 73-year-old male well-known to our service with history of obesity, obstructive sleep apnea not compliant with CPAP, recurrent symptomatic atrial arrhythmias status post multiple ablations, chronically on sotalol. Most recent ablation
was 01/29/2024 completed at [facility] by Dr. Womack. He was seen in their office earlier this week and Xarelto was stopped as he has loop monitor in place and rhythm can be recorded through this. He did not take his Xarelto yesterday. He
reports he is under significant increased stress as his son is hospitalized and his is on hospice care. He reports after leaving his yesterday, he developed chest discomfort radiating across his chest through to his back and up into his
throat. He states he had noted some discomfort earlier this week however felt more like indigestion and was lower down, more in his epigastrum with radiation to his back. When EMS arrived he was given aspirin and nitro which reduced his pain from
an 8 out of 10 to a 3 out of 10. He states from there the pain slowly resolved and is currently not present. Troponin went up to 5.5. EKG SB without acute ST abnormalities. Cardiology consulted for evaluation.
PMH:
Chronic HFpEF
Recurrent symptomatic paroxysmal atypical atrial flutter with RVR
Recurrent paroxysmal atrial fibrillation with prior PVI 2017, 04/2022, 12/26/22, 06/10/23, 01/29/24 @[facility]
chronic sotalol therapy
OAC recently discontinued 04/2024 as with loop recorder in place
HTN
ZARIA not compliant with CPAP
s/p Linq 08/2022
Mild Mitral stenosis by echo 2022
Obesity
OA s/p L TKR 04/30/23
Past Medical History
Past Medical History: Other (as above)
Past Surgical History: Other (as above)
Social History
Tobacco: Other (quit 20yrs ago)
Alcohol: None
Drug: None
Personal:
Living: With Family
Employment: Retired
Family History
Family History: Reviewed & Not Pertinent
Allergies / Home Medications
Allergy/AdvReac Type Severity Reaction Status Date / Time
amiodarone Allergy sleeplessness, Verified 12/24/23 01:23
acid reflux
azithromycin Allergy Loss of Verified 12/24/23 01:23
smell,
loss of
taste,
metal
taste in
mouth
dofetilide [From Tikosyn] Allergy GERD Verified 12/24/23 01:23
Iodinated Contrast Media Allergy Itching Verified 12/24/23 01:23
[Iodinated Contrast- Oral
and IV Dye]
iodine Allergy Itching Verified 12/24/23 01:23
�Medication �Instructions �Recorded �Confirmed �Type
lactobacillus combination no.4 3 3,000 mmu cells PO DAILY Supplement 12/26/22 04/08/24 History
billion cell capsule (Probiotic)
latanoprost 0.005 % eye drops 1 drp BOTH EYES HS Eye Condition 04/17/23 04/08/24 History
loratadine 10 mg tablet (Claritin) 10 mg PO DAILY Allergies 04/18/23 04/08/24 History
diltiazem HCl 120 mg capsule,24 120 mg PO DAILY Heart 06/09/23 04/09/24 History
hr,extended release Disease/Condition
omeprazole 40 mg capsule,delayed 40 mg PO DAILY@1730 GERD 06/09/23 04/08/24 History
release
famotidine 20 mg tablet 20 mg PO DAILY Gastrointestinal 06/17/23 10/03/23 History
Issue
sotalol 80 mg tablet 80 mg PO BID Arrhythmia 06/17/23 04/08/24 History
aspirin 81 mg tablet,delayed 81 mg PO DAILY@1730 Blood Clot 10/03/23 10/03/23 History
release Prevention/Tx
lisinopril 5 mg tablet 5 mg PO DAILY Blood Pressure 10/03/23 04/08/24 History
acetaminophen 325 mg tablet 650 mg PO Q6H PRN pain 04/08/24 04/08/24 History
(Tylenol)
furosemide 40 mg tablet 40 mg PO DAILY PRN swelling 04/08/24 04/08/24 History
tadalafil 5 mg tablet 5 mg PO DAILY Urinary Issue 04/08/24 04/08/24 History
rivaroxaban 20 mg tablet (Xarelto) 20 mg PO QPM Blood Clot 04/09/24 History
Prevention/Tx
Review of Systems
-
History Source: Patient
All other systems: Negative unless noted
Physical Exam
Vital Signs
Temp Pulse Resp BP Pulse Ox
98 F 61 20 122/60 99
04/09/24 07:17 04/09/24 07:20 04/09/24 07:17 04/09/24 07:20 04/09/24 07:17
Lab Results
04/09/24 04:36
04/09/24 04:36
Troponin I 5.230 ng/ml H* 04/09/24 04:36
Physical Exam
General: No Apparent Distress and Comfortable
HEENT: Normocephalic, Anicteric and Moist Mucous Membranes
Respiratory: Clear and Non Labored Respirations
Cardiac: S1/S2 and Regular Rhythm
GI: Soft, Non Tender, Non Distended and Normal Bowel Sounds
Musculoskeletal: No Clubbing, No Cyanosis and No Edema
Skin: Warm and Dry
Neuro: AO x 3
Impression / Plan
-
Primary EP: Dr. Dionte Vázquez and Dr. Richard of [facility]
Assessment:
Presentation with CP
Elevated troponin, peak 5.3
Chronic HFpEF
Recurrent symptomatic paroxysmal atypical atrial flutter with RVR
Recurrent paroxysmal atrial fibrillation with prior PVI 2017, 04/2022, 12/26/22, 06/10/23, 01/29/24 @[facility]
chronic sotalol therapy
OAC recently discontinued 04/2024 as with loop recorder in place
HTN
ZARIA not compliant with CPAP
s/p Linq 08/2022
Mild Mitral stenosis by echo 2022
Obesity
OA s/p L TKR 04/30/23
GARCIA 06/06/23: EF 55%, left atrium dilated, mild mitral stenosis, mild to moderate MR, aortic sclerosis with trace AR, trace TR
Plan:
-Patient presented with episode of chest pain and troponin peaked at 5.3. He is currently pain-free. EKG sinus bradycardia without acute ST abnormalities
-chest CT negative for dissection or hematoma, no active pulmonary process
-He did not take his Xarelto yesterday. This was discontinued earlier this week as plan was for continued rhythm monitoring through his loop recorder. continue IV heparin, asa at present
-N.p.o. for cardiac catheterization today. procedure discussed with patient this morning and he is agreeable to proceed
-He is noted to have IV contrast allergy. Was given dose of prednisone this morning. Will be given Benadryl in the Industrial Technologist
-check echo
-check CVE
-In sinus rhythm, follow on tele. continue OP sotalol
-Of note, ideally with mitral stenosis, if patient would need OAC again in future should be on Coumadin not Xarelto.
-requested records from [facility] for review
-d/w nursing
Data Reviewed
-
EKG: Tracing Personally Visualized and interpreted
CT Scan: Report Reviewed by me
Medical Tests (Nuc Med, Echo etc): Report Reviewed by me
Labs: Labs Reviewed by me
Old Records: Reviewed
[2024-04-09 10:29] LABS: HDL Cholesterol 52 mg/dl; LDL Cholesterol, Calculated 108 mg/dl; Total Cholesterol 173 mg/dl (50-199); Triglyceride 68 mg/dl (10-149); Very Low Density Lipoprotein 13 mg/dl (0-30)
[2024-04-09 10:54] LABS: ACT-LR - POC 266 Seconds (116-155)
[2024-04-09 11:16] LABS: ACT-LR - POC 245 Seconds (116-155)
[2024-04-09 11:34] LABS: ACT-LR - POC 327 Seconds (116-155)
[2024-04-09 11:57] LABS: ACT-LR - POC 300 Seconds (116-155)
--- NOTE | 2024-04-09 12:49 | ITS.CL.CATH ---
C[employer] Pest Control Specialist - Catheterization
Cardiac Catheterization
Procedure Report:
LEFT HEART CATHETERIZATION AND CORONARY INTERVENTION
Date of Procedure: April 09, 2024
Referring: Hernandez Acevedo MD
PROCEDURES:
1. Left heart catheterization, coronary angiogram.
2. Ultrasound-guided access.
3. Physiologic functional assessment with IFR and FFR of mid LAD.
4. Successful percutaneous coronary artery intervention of a hazy 90% proximal D1 stenosis with one 2.5 x 18 mm Xience saray point drug-eluting stent.
5. Successful percutaneous coronary artery intervention of a hazy 90% proximal OM1 stenosis with one 2.25 x 15 mm Xience saray point drug-eluting stent.
INDICATION: NSTEMI
ACCESS: Right radial artery, 6 Irish sheath, under ultrasound guidance
HEMODYNAMICS : (mmHg)
AO (s/d) : 125/67
LV (s/d) : 122/5
LVEDP : 24
CORONARY FINDINGS
DOMINANCE: Right
LEFT MAIN: Left main artery is a large-caliber vessel which gives rise to the left anterior descending artery and the left circumflex artery. There is mild diffuse atherosclerotic plaque.
LEFT ANTERIOR DESCENDING: The left anterior descending artery is a medium to large caliber vessel which gives rise to 2 major diagonal branches as it courses through the anterior interventricular groove and wraps around the apex. D1 is a medium to
large caliber vessel which has a hazy 90% stenosis in the proximal portion which could be potential culprit for presenting acute coronary syndrome and was treated with 1 drug-eluting stent with details below. Mid LAD has a 50 to 60% stenosis at the
takeoff of the second diagonal branch with FFR negative. D2 is a small caliber branching vessel with a 80% stenosis, which was not felt to be a good target for percutaneous intervention.
CIRCUMFLEX: The left circumflex artery is a medium caliber vessel which gives rise to 1 medium to large caliber obtuse marginal branch and a second small OM 2 along with 1 small left posterolateral branch and the left PDA. Proximal portion of the
OM1 has a hazy 90% focal stenosis which could be potential culprit for presenting acute coronary syndrome. This lesion was intervened on and treated with 1 stent with details below.
RIGHT CORONARY ARTERY: The right coronary artery is a small caliber, nondominant vessel with minimal luminal irregularities
HEMODYNAMIC ASSESSMENT OF THE Mid LAD WITH A VOLCANO OMNI WIRE: The origin of the LCA was cannulated with a 6 Fr EBU 3.75 guide catheter. Intravenous heparin was administered and the ACT was followed during the procedure. Two hundred micrograms of
intracoronary nitroglycerin was given through the guide catheter. A [place] Omni wire was advanced to the guide catheter tip and normalized in the proximal left main. The Omni wire was then carefully manipulated across the stenosis in the mid LAD
with the iFR in the indeterminate zone at 0.91. Therefore IV adenosine was given per protocol and FFR was performed which is negative at 0.86. The Omni wire was then pulled back to the guide catheter where the Pd/Pa measured 1.0 confirming no
baseline drift in pressure readings
CORONARY INTERVENTION: Decision was made to proceed with percutaneous coronary artery intervention to D1 and OM 1 lesions. Additional heparin was given to maintain a therapeutic ACT throughout the case. A 190 cm 0.014' BMW coronary wire was
carefully navigated into the distal diagonal branch. The D1 lesion was predilated using a 2.5 x 15 millimeter semi-compliant balloon at 14 bridgett and subsequently stented using a 2.5 x 18 mm Xience saray point drug-eluting stent and postdilated with a
2.5 x 15 mm NC trek balloon at 18 bridgett with an excellent angiographic result. We then redirected the same BMW wire and carefully navigated across the proximal OM1 stenosis and parked it in the distal OM1. The OM1 stenosis was predilated using a 2.0
x 12 mm semi-compliant balloon at 14 bridgett with good expansion. The lesion was then stented using a 2.25 x 15 mm Xience [place] drug-eluting stent, which was deployed at 14 bridgett. We initially attempted to bring in the previously used 2.5 x 15 mm NC
trek balloon however we could not successfully advance this into the vessel with hanging up in the proximal left circumflex artery. We then brought in a fresh 2.5 x 12 mm NC trek balloon and given the angle of the takeoff of the circumflex/OM
system and the guide despite multiple attempts we still could not deliver this into the stent. Given excellent angiographic result at this point we decided to stop. Patient was loaded with 180 mg of Brilinta at the end of the case. No acute
complications.
SEDATION: 113 minutes of procedural sedation was utilized. An independent director of medical education was present to assist with and help manage the patient's level of consciousness and physiologic status.
RADIATION SUMMARY: Fluoro Time (min): 25.6, Dose (mGy): 1611.7, DAP (Gy.cm2) : 94.1
Closure Device: Vascular band over right radial artery, 13 cc of
CONCLUSIONS
1. Left dominant circulation.
2. FFR (0.86) negative 50 to 60% stenosis in the mid LAD at the level of the takeoff of the second diagonal branch.
3. Successful percutaneous coronary artery intervention of a hazy 90% proximal D1 stenosis with one 2.5 x 18 mm Xience saray point drug-eluting stent.
4. Successful percutaneous coronary artery intervention of a hazy 90% proximal OM1 stenosis with one 2.25 x 15 mm Xience saray point drug-eluting stent.
5. D2 is a small caliber branching vessel with a 80% stenosis, which was not felt to be a good target for percutaneous intervention.
6. Significantly elevated LVEDP at 24 mmHg
RECOMMENDATIONS
1. In the setting of acute coronary syndrome, uninterrupted dual antiplatelet therapy with daily baby aspirin and Brilinta 90 mg twice daily for at least 1 year along with high intensity statin and beta-jessica as tolerated.
2. Full echocardiogram to assess biventricular function and rule out any significant valvular issues.
3. Aggressive management of cardiovascular risk factors.
4. Wean radial band per protocol.
5. Referral for outpatient cardiac rehab
Copy to: Hernandez Acevedo MD
Tana Alvarez MD, FACC, [facility]
[2024-04-09] MEDS: LASIX 20 MG IV (13:41)
--- NOTE | 2024-04-09 14:45 | CM ---
Chris Sargent thru patient's Rx plan,
Pt. needs to meet yearly deductible of $545. First Rx fill would be $428.08. Next fill would be $108.27/month.
I have shared this with patient and this is too costly.
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
[2024-04-09] MEDS: PROTONIX 40 MG PO (16:37)
[2024-04-09] MEDS: LIPITOR 80 MG PO (18:01)
--- NOTE | 2024-04-09 18:13 | W.PN.HOSP.TC ---
Addendum entered and electronically signed by Sharonda Blanco MD 04/09/24 19:57:
I saw and evaluated the patient independently. I reviewed the resident�s note and agree with findings and plan as documented by Dr. Isabel.
GENERAL: well developed, well nourished, male in no apparent distress, depressed
HEENT: NC/AT
HEART: regular rate and rhythm, +S1, +S2
LUNGS : clear to auscultation bilaterally
ABDOM: soft, nontender, nondistended, + bowel sounds
EXT: no cyanosis, clubbing, or edema
NEUROLOGIC: grossly intact
PSYCH: depressed/anxiety
NSTEMI--cont aspirin and statin--ECHO with Moderate mitral regurgitation with moderately dilated left atrium. Moderate mitral stenosis. LV ejection fraction is 55-60%--trend Troponions--cardiac cath showed percutaneous coronary artery intervention
of proximal D1 stenosis with drug-eluting stent, percutaneous coronary artery intervention of proximal OM1 stenosis with drug-eluting stent--cont Brillinta and asa x 1 year- apprec cardiology consult
essential HTN--continue diltiazem
Anxiety--patient undergoing significant stress and anxiety in his life as is currently on hospice and son hospitalized too--PCP recently prescribed ativan, will continue here at low dose PRN--Psychiatric consult--pt declined talking to the
Cleaning And Washing Equipment Operator as he is 'not islam'
paroxysmal AFib--hx PVI x3 (latest January 2024); s/p cardioversion x 2 2022--patient saw buffer operator at [facility] and discussed stopping Xarelto--patient has a loop recorder--continue HYDROELECTRIC PLANT ELECTRICAL ENGINEER Diltiazem--continue HYDROELECTRIC PLANT ELECTRICAL ENGINEER Sotalol
BPH-- Tadalafil
DVT PPx Heparin
DNR - per patient and as written in his living will
Original Note:
Today's Communication/Plan
-
Psychiatric consult giving depressed mood. Patient went to the Carton Lettering Machine Operator, placed 2 stents
Assessment / Plan
Assessment / Plan
74 yo man with hx paroxysmal atrial fibrillation/flutter on Xarelto, essential HTN presenting with NSTEMI.
EKG: Sinus bradycardia with premature SVC
CTA negative for dissection/PE
Problem #1:NSTEMI
-Start aspirin and statin
-TTE--Moderate mitral regurgitation with moderately dilated left atrium. Moderate mitral stenosis. LV ejection fraction is 55-60%.
-trend Troponions
-cardiac cath-- percutaneous coronary artery intervention of proximal D1 stenosis with drug-eluting stent, percutaneous coronary artery intervention of proximal OM1 stenosis with drug-eluting stent.
- apprec cardiology consult
Problem #2: essential HTN--continue diltiazem
Problem #3: Anxiety
-patient undergoing significant stress and anxiety in his life as is currently on hospice
-PCP recently prescribed ativan, will continue here at low dose PRN
-Psychiatric consult
Problem #4: paroxysmal AFib
-hx PVI x3 (latest January 2024); s/p cardioversion x 2 2022
-patient saw buffer operator at [facility] and discussed stopping Xarelto
-patient has a loop recorder
-continue HYDROELECTRIC PLANT ELECTRICAL ENGINEER Diltiazem
-continue HYDROELECTRIC PLANT ELECTRICAL ENGINEER Sotalol
BPH-- Tadalafil
DVT PPx Heparin
DNR - per patient and as written in his living will
Anticipated Discharge: Within 24 hours
Subjective/Interval History
-
Date of Service: April 09, 2024
Chest pain has improved. No fever/chills. Patient does not report nausea or vomiting. He is feeling sad and is in a depressed mood. Cries when talking about his who is at hospice. Does not report difficulty breathing.
Objective Data
-
Vital Signs:
Vital Signs
Temp Pulse Resp BP Pulse Ox
97.7 F 63 20 133/61 97
04/09/24 15:11 04/09/24 12:30 04/09/24 15:11 04/09/24 12:30 04/09/24 15:11
I&O
04/08/24 04/09/24 04/10/24
06:59 06:59 06:59
Output Total 200 / 200 150 / 150
Balance -200 / -200 -150 / -150
Review of Systems
-
History Source: Patient
All other systems: Reviewed and negative
Psych: Reports Depressed and Sad
Physical Exam
-
General: Well Developed, Well Nourished and No Apparent Distress
HEENT: Normocephalic and Atraumatic
Respiratory: Clear to Auscultation
Cardiac: Regular Rhythm, S1/S2 and Murmur
GI: Soft, Nontender and Nondistended
Rectal: Brown
Genito-urinary: No Costovertebral Tender and Clear Urine
Musculoskeletal: No Clubbing, No Cyanosis and No Edema
Skin: Warm
Neuro: Awake, Alert, Oriented and AO x 3
Hematologic / Lymphatic: No Lymphadenopathy
Psych: Depressed
Data Reviewed
-
Total Time Spent with Patient (in minutes): 60
[2024-04-09] MEDS: XALATAN OPHTHALMIC SOLUTION 1 DROP BOTH EYES (20:16)
--- NOTE | 2024-04-10 01:30 | PTCARENOTE ---
Patient with no complaints overnight. SB HR in the 50's. Right radial site CDI, call kemp in reach
[2024-04-10 04:00] VITALS: BP 131/63
[2024-04-10 04:16] VITALS: BMI 33.9
[2024-04-10 04:54] LABS: Hematocrit 36.9 % (39.0-52.0); Hemoglobin 11.6 g/dL (13.0-18.0); Mean Corp Hgb Conc. 31.4 g/dL (33.0-37.0); Mean Corpuscular Hgb 28.9 pg (27.0-31.0); Mean Platelet Volume 10.7 fL (7.4-10.4); Platelet Count 153 10^3/uL (130-400); Red Blood Cell Count 4.01 10^6/uL (4.70-6.10); Red Cell Dist. Width 13.6 % (11.5-14.5); White Blood Cell Count 13.4 10^3/uL (4.8-10.8)
[2024-04-10 05:19] LABS: Blood Urea Nitrogen 19 mg/dl (9-20); Calcium 8.8 mg/dl (8.4-10.2); Carbon Dioxide 22 mmol/L (22-30); Chloride 107 mmol/L (98-107); Estimated Creatinine Clearance 111 ml/min; Glucose 127 mg/dl (70-99); Potassium 3.9 mmol/L (3.5-5.1); Sodium 136 mmol/L (135-145); eGFR > 60.00
[2024-04-10 07:01] VITALS: BP 123/67
[2024-04-10] MEDS: LOW STRENGTH ASPIRIN 81 MG PO (08:19)
[2024-04-10] MEDS: CARDIZEM CD 120 MG PO (08:20)
[2024-04-10] MEDS: BETAPACE 80 MG PO ×2 (08:20→19:07)
[2024-04-10] MEDS: PLAVIX 600 MG PO (08:21)
[2024-04-10] MEDS: PEPCID 20 MG PO (08:21)
--- NOTE | 2024-04-10 08:35 | W.PN.CARDCBS ---
Addendum entered and electronically signed by Hernandez Acevedo MD 04/10/24 10:00:
No complaints of chest pain, but 2 brief runs of what is likely atrial flutter. Very anxious not to go home.
Also upset that psychiatry did not see him
PMH/PSH/SH/FH: Reviewed
Allergies: Amiodarone, azithromycin, dofetilide, IV contrast
Outpatient cardiac meds: Aspirin 81 mg a day, rivaroxaban, just recently discontinued with Linq monitor, sotalol 80 twice daily, tadalafil, furosemide as needed, famotidine
Current meds reviewed:
ROS: Negative except as above
131/63, pulse 59, resp rate 18, afebrile, sats 97%
Head neck exam unremarkable lungs are clear regular rate and rhythm, abdomen obese, extremities without clubbing cyanosis or edema, wrist intact, neuro nonfocal
ECG sinus rhythm/bradycardia, QTc 475, PACs, RSR prime
White count 13.4, hemoglobin 11.6, platelets 153, BUN and creatinine 19 and 0.6
Assessment:
NSTEMI, elevated troponin, peak 5.3
CAD s/p 2.5 mm Xience to prox Diag-1 and 2.25 mm Xience to prox OM-1 04/09/24
Chronic HFpEF
Recurrent symptomatic paroxysmal atypical atrial flutter with RVR
Recurrent paroxysmal atrial fibrillation with prior PVI 2017, 04/2022, 12/26/22, 06/10/23, 01/29/[facility]
chronic sotalol therapy
OAC recently discontinued 04/2024 as with loop recorder in place
HTN
ZARIA not compliant with CPAP
s/p Linq 08/2022
Moderate MS with mean gradient 9 mmHg by echo 04/09/24
Obesity
OA s/p L TKR 04/30/23
Plan:
He appears overall stable from the standpoint of ACS. He had 2 brief episodes of atrial arrhythmia. He is adamant that he does not want to go home based on his rhythm issues. We will observe overnight. If stable, plan on discharge tomorrow.
Alternative would be to potentially increase sotalol, but would like to avoid this if possible.
Original Note:
Today's Communication / Plan
-
New to Plavix and aspirin should be continued
No longer on OAC and instead being monitored through loop recorder, this plan of care was established by his [facility] senior quality assurance engineer
Started taking his 's lorazepam and then had med prescribed by PCP to help with stress, would like to talk to psychiatrist at for possible change of meds
Cardiology f/u arranged
Impression / Plan
-
Primary EP: Dr. Dionte Vázquez and Dr. Richard of [facility]
Assessment:
Presentation with CP
NSTEMI, elevated troponin, peak 5.3
CAD s/p 2.5 mm Xience to prox Diag-1 and 2.25 mm Xience to prox OM-1 04/09/24
Chronic HFpEF
Recurrent symptomatic paroxysmal atypical atrial flutter with RVR
Recurrent paroxysmal atrial fibrillation with prior PVI 2017, 04/2022, 12/26/22, 06/10/23, 01/29/24 [facility]
chronic sotalol therapy
OAC recently discontinued 04/2024 as with loop recorder in place
HTN
ZARIA not compliant with CPAP
s/p Linq 08/2022
Moderate MS with mean gradient 9 mmHg by echo 04/09/24
Obesity
OA s/p L TKR 04/30/23
GARCIA 06/06/23: EF 55%, left atrium dilated, mild mitral stenosis, mild to moderate MR, aortic sclerosis with trace AR, trace TR
Echo 04/09/24: EF 55-60%, stage III diastolic dysfunction, normal RV size and function, mod MR, mod MS with mean gradient 9 mmHg, mild aortic regurgitation
Plan:
-Patient does not feel subjectively different following PCI 04/09/24. Right radial dressing slowly removed and underlying there was a small area of ecchymosis without evidence of tenderness or hematoma. Activity limitations reviewed.
-CAD is a a new diagnosis and patient is new to DAPT with with aspirin and Plavix. Brilinta was cost prohibitive. Reviewed aspirin 81 mg daily for life and Plavix 75 mg daily for at least the next year.
-Troponin peaked at 5.33 and echo preserved by echo
-Outpatient doses of sotalol 80 mg BID and Cardizem CD 120 mg daily continued for h/o recurrent paroxysmal Afib/flutter with previous CVs and ablations
-Patient is not chronically on OAC and is instead monitored for recurrence of atrial arrhythmia by implanted loop recorder. This plan of care was established by Dr. Womack at [facility] who also performed the most recent ablation.
-If patient requires OAC he should be placed on warfarin due to mitral stenosis.
-Patient tolerated cath and contrast after prednisone and Benadryl given prior to cath.
-LDL 108 and patient newly started on atorvastatin 80 mg daily this admission.
-Patient reports that psychiatry consult for medication was ordered, but they have not yet come to see him. Patient has been more stressed and is drinking a few beers here and there, but says he has not been on 'a padgett.' PCP recently started him
on lorazepam 0.5 mg HS PRN after he tried some of his 's lorazepam and it made him feel better.
-From a cardiac standpoint patient is stable for d/c with cardiology follow up arranged.
HPI: Patient is a 73-year-old male well-known to our service with history of obesity, obstructive sleep apnea not compliant with CPAP, recurrent symptomatic atrial arrhythmias status post multiple ablations, chronically on sotalol. Most recent
ablation was 01/29/2024 completed at [facility] by Dr. Womack. He was seen in their office earlier this week and Xarelto was stopped as he has loop monitor in place and rhythm can be recorded through this. He did not take his Xarelto yesterday.
He reports he is under significant increased stress as his son is hospitalized and his is on hospice care. He reports after leaving his yesterday, he developed chest discomfort radiating across his chest through to his back and up into
his throat. He states he had noted some discomfort earlier this week however felt more like indigestion and was lower down, more in his epigastrium with radiation to his back. When EMS arrived he was given aspirin and nitro which reduced his pain
from an 8 out of 10 to a 3 out of 10. He states from there the pain slowly resolved and is currently not present. Troponin went up to 5.5. EKG SB without acute ST abnormalities. Cardiology consulted for evaluation.
Progress Note - Taffy Puller
Subjective
Date of Service: April 10, 2024
He is upset that the psychiatrist has not come to see him yet
Objective
Labs:
04/10/24 04:14
04/10/24 04:14
Labs
Hgb 11.6 g/dL (13.0-18.0) L 04/10/24 04:14
Hct 36.9 % (39.0-52.0) L 04/10/24 04:14
Plt Count 153 10^3/uL (130-400) 04/10/24 04:14
PT 15.5 Sec (11.4-14.6) H 04/08/24 18:59
INR 1.23 04/08/24 18:59
APTT Cancelled 04/10/24 01:30
Sodium 136 mmol/L (135-145) 04/10/24 04:14
Potassium 3.9 mmol/L (3.5-5.1) 04/10/24 04:14
BUN 19 mg/dl (9-20) 04/10/24 04:14
Creatinine 0.6 mg/dL (0.7-1.3) L 04/10/24 04:14
Glucose 127 mg/dl (70-99) H 04/10/24 04:14
Troponins
04/08/24 04/08/24 04/09/24
18:59 21:23 01:25
Troponin I < 0.012 1.190 H* D 5.330 H* D
04/09/24 04/09/24
04:36 06:49
Troponin I 5.230 H* Cancelled
Vital Signs and I&O:
Vital Signs
Temp Pulse Resp BP Pulse Ox
98.0 F 59 18 131/63 97
04/10/24 07:01 04/10/24 04:00 04/10/24 07:01 04/10/24 04:00 04/10/24 07:01
Vital Signs
Temp Pulse Resp BP Pulse Ox
98.0 F 59 18 131/63 97
04/10/24 07:01 04/10/24 04:00 04/10/24 07:01 04/10/24 04:00 04/10/24 07:01
Intake & Output
04/08/24 04/09/24 04/10/24 04/11/24
06:59 06:59 06:59 06:59
Intake Total 240 / 240
Output Total 200 / 200 150 / 150
Balance -200 / -200 90 / 90
Physical Exam
Physical Exam
GEN: NAD. AAO x3
HEENT: MMM, wearing glasses
LUNGS: No audible wheeze
CV: SR on tele. Right radial dressing removed and underneath there is minimal ecchymosis without hematoma or tenderness
ABD: ND
EXT: No edema B/L
NEURO: Gross non-focal
SKIN: No rash
--- NOTE | 2024-04-10 09:19 | W.PN.HOSP.TC ---
Today's Communication/Plan
-
await psych input
d/c
Assessment / Plan
Assessment / Plan
pt is a 74 year old male
NSTEMI--cont aspirin and statin--ECHO with Moderate mitral regurgitation with moderately dilated left atrium. Moderate mitral stenosis. LV ejection fraction is 55-60%---cardiac cath showed percutaneous coronary artery intervention of proximal D1
stenosis with drug-eluting stent, percutaneous coronary artery intervention of proximal OM1 stenosis with drug-eluting stent--cont plavix (cannot afford Brillinta) and asa for minimum of 1 year- apprec cardiology consult
essential HTN--continue diltiazem
Anxiety--patient undergoing significant stress and anxiety in his life as is currently on hospice and son hospitalized too--PCP recently prescribed ativan, will continue here at low dose PRN--Psychiatric consult, await input--pt declined
talking to the Digital Print Operator as he is 'not rastafari'
paroxysmal AFib--hx PVI x3 (latest January 2024); s/p cardioversion x 2 2022--patient saw quality project manager at [facility] and discussed stopping Xarelto--patient has a loop recorder--continue CARTON MACHINE OPERATOR Diltiazem--continue CARTON MACHINE OPERATOR Sotalol
BPH-- Tadalafil
DVT PPx Heparin
DNR - per patient and as written in his living will
Anticipated Discharge: Today
Subjective/Interval History
-
Date of Service: April 10, 2024
pt without chest pain--plans for d/c today
Objective Data
-
Labs:
Laboratory Results
04/10/24 04/10/24
01:30 04:14
WBC 13.4 H
Hgb 11.6 L
Hct 36.9 L
Plt Count 153
APTT Cancelled
Sodium 136
Potassium 3.9
Chloride 107
Carbon Dioxide 22
BUN 19
Creatinine 0.6 L
Glucose 127 H
Calcium 8.8
Vital Signs:
max temp for 24 hours
04/10/24
04:01
Temp 98.3 F
Vital Signs
Temp Pulse Resp BP Pulse Ox
98.0 F 59 18 131/63 97
04/10/24 07:01 04/10/24 04:00 04/10/24 07:01 04/10/24 04:00 04/10/24 07:01
I&O
04/09/24 04/10/24 04/11/24
06:59 06:59 06:59
Intake Total 240 / 240
Output Total 200 / 200 150 / 150
Balance -200 / -200 90 / 90
Review of Systems
-
All other systems: Reviewed and negative
Physical Exam
-
General: Well Developed, Well Nourished and No Apparent Distress
HEENT: Normocephalic and Atraumatic
Respiratory: Clear to Auscultation; Negative Wheezes or Crackles
Cardiac: Regular Rhythm and S1/S2; Negative Murmur
GI: Soft, Nontender, Nondistended and Normal Bowel Sounds
Musculoskeletal: No Clubbing, No Cyanosis and No Edema
Neuro: Awake and Alert
Psych: Calm
[2024-04-10 09:24] LABS: Glycohemoglobin (HgbA1c) 5.3 % (4.0-5.6)
--- NOTE | 2024-04-10 11:12 | PTCARENOTE ---
Pt had short run of SVT/a-fib on monitor, he felt a brief 'fluttering'. Care link obtained at Dr Acevedo's request. Pt does not wish to go home , he is concerned about arrhythmia.
[2024-04-10 11:21] VITALS: BP 134/60
[2024-04-10 13:56] VITALS: BP 135/60
[2024-04-10] MEDS: TYLENOL 650 MG PO (13:58)
--- NOTE | 2024-04-10 14:17 | W.DCSUMMARY ---
Discharge Summary
Discharge Data
Date of Admission: 04/08/24
Date of Discharge: 04/10/24
-
Pending Results: No
Hospital Course
Primary care physician : Graham Adams
Principal Discharge diagnosis : Non-ST segment elevation myocardial infarction (NSTEMI)
Chronic Discharge diagnosis : Essential hypertension, anxiety, paroxysmal atrial fibrillation, benign prostatic hyperplasia
Hospital Course : Patient was a 74-year-old male with a history of paroxysmal atrial fibrillation/flutter on Xarelto who presented with chest pain. Patient was visiting his who was in hospice and on the drive home started experiencing chest
tightness which stretched across his chest and radiated to his back and up his neck. Once he arrived home, EMS was called and the patient was given aspirin and nitroglycerin. After those interventions his pain improved. Patient also stated that
his son was hospitalized and the patient feels stressed and overwhelmed. He did take an Ativan the night prior to let him sleep. Patient was admitted.
Problem #1: NSTEMI. Patient was admitted and seen in consultation by cardiology. He underwent cardiac catheterization which showed percutaneous coronary artery stenosis with intervention of the proximal D1 stenosis with a drug-eluting stent as
well as proximal OM1 stenosis with a drug-eluting stent. He was initially loaded with Brilinta but cannot afford this moving forward. He will be on aspirin and Plavix for a minimum of 1 year. Xarelto has been stopped at his tc operator request
at [facility]. Echocardiogram was done which showed an ejection fraction of 55 to 60% with stage III diastolic dysfunction. Troponin peaked at 5.3. Atorvastatin was started this admission. Patient cleared for discharge.
Problem #2: All other medical issues. These include Essential hypertension, anxiety, paroxysmal atrial fibrillation, benign prostatic hyperplasia. These medical issues were stable during his hospitalization. Medications were continued as able.
Patient is waiting to talk to psychiatry.
Patient is stable for discharge home at this time. If there are any questions regarding this dictation or his hospital stay, please not hesitate to call. Our office number is [phone].
Important imaging findings :
ECHOCARDIOGRAM CONCLUSIONS:
Normal left ventricular size, wall thickness and systolic function. No regional
wall motion abnormalities are seen. LV ejection fraction is 55-60% by visual
assessment. Stage III diastolic dysfunction suggestive of restrictive filling
pattern and increased filling pressures.
Normal right ventricular size. Normal right ventricular systolic function.
Moderate mitral regurgitation with moderately dilated left atrium.
Moderate mitral stenosis.
Aortic sclerosis without stenosis. Mild aortic regurgitation.
Mild tricuspid regurgitation. Estimated pulmonary artery pressure of 35-40
mmHg. Assuming a right atrial pressure of 3 mmHg.
Compared to prior study dated 12/27/2022 which was directly reviewed, mitral
regurgitation and mitral stenosis have worsened
Procedure findings :
CARDIAC CATH PROCEDURES:
1. Left heart catheterization, coronary angiogram.
2. Ultrasound-guided access.
3. Physiologic functional assessment with IFR and FFR of mid LAD.
4. Successful percutaneous coronary artery intervention of a hazy 90% proximal D1 stenosis with one 2.5 x 18 mm Xience saray point drug-eluting stent.
5. Successful percutaneous coronary artery intervention of a hazy 90% proximal OM1 stenosis with one 2.25 x 15 mm Xience saray point drug-eluting stent.
Discharge Plan
-
Patient Disposition: Home (Routine Discharge)
Discharge Diagnosis/Procedures: NSTEMI, s/p angioplasty and stent x1 to Obtuse Marginal, x1 to First Diagonal arteries, essential hypertension, paroxysmal atrial fibrillation, benign prostatic hyperplasia, anxiety/depression
Condition: Good
Diet: Low Cholesterol
Activity: As tolerated
Driving Restrictions: As prior to admission
Bathing Restrictions: None
Other Services: Cardiac Rehab
Stand Alone Forms: DC Instructions- Cath/EP Lab
Referrals:
Kristan Rodriguez CRNP [Specified Professional Personl] - 05/06/24 3:20 pm (Cardiology followup appointment)
Graham Adams MD [Family Provider] - in less than 1 week
Additional Discharge Medication Instructions: -STOP xarelto at this time (per [facility])
-Take aspirin 81 mg daily indefinitely
-Take Plavix (clopidogrel) 75 mg once a day for the next year
Prescriptions:
New
atorvastatin 80 mg Tablet
80 mg PO QPM Qty: 30 0RF
clopidogrel [Plavix] 75 mg tablet
75 mg PO DAILY Qty: 30 11RF
Continued
Probiotic 3 billion cell Capsule
3,000 mmu cells PO DAILY
latanoprost 0.005 % Drops
1 drp BOTH EYES HS
loratadine [Claritin] 10 mg Tablet
10 mg PO DAILY
omeprazole 40 mg Capsule,Delayed Release(Dr/Ec)
40 mg PO QPM
diltiazem HCl 120 mg Capsule,Extended Release 24 Hr
120 mg PO DAILY
sotalol 80 mg Tablet
80 mg PO BID
famotidine 20 mg Tablet
20 mg PO DAILY
aspirin 81 mg Tablet,Delayed Release (Dr/Ec)
81 mg PO DAILY
lisinopril 5 mg tablet
5 mg PO DAILY
furosemide 40 mg Tablet
40 mg PO DAILY PRN (Reason: swelling )
acetaminophen [Tylenol] 325 mg Tablet
650 mg PO Q6H PRN (Reason: pain )
tadalafil 5 mg Tablet
5 mg PO DAILY PRN (Reason: ED)
Discontinued
Xarelto 20 mg tablet
20 mg PO QPM
Care Plan Goals
Care Plan Goals:
Problem: Readiness for enhanced knowledge related to diagnosis and treatment plan
Goal: Understand your diagnosis and treatment plan needs, including medications if applicable.
Instructions: Know your diagnosis, underlying causes and treatment plan options, including medications if applicable. Consult with your health care team to learn about your diagnosis and treatment plan, including medications if applicable.
Discharge Date and Time
Print Language: PASHTO
[2024-04-10 14:52] VITALS: BP 143/71
[2024-04-10 15:38] VITALS: BP 132/61
[2024-04-10 15:53] LABS: Glucose - Point of Care 108 mg/dl (70-99)
--- NOTE | 2024-04-10 16:12 | PTCARENOTE ---
Pt c/o headache, unrelieved with Tylenol. He also c/o lightheadedness and intermittent mild L chest discomfort. EKG obtained. BP 132/61, SR 50's. He is concerned that his HR is low and said he just didn't feel well. Accucheck obtained = 108. Pt
encouraged to eat lunch, Pt says he's not hungry. He does not want additional pain med for headache. Ice pack given. Offered to ask Dr for order for med for anxiety, Pt declined. Dr Blandon and Dr WILDA Acevedo aware.
[2024-04-10] MEDS: PROTONIX 40 MG PO (17:09)
[2024-04-10] MEDS: LIPITOR PO (17:11)
--- NOTE | 2024-04-10 17:43 | CON.MD ---
Consultation - Medical
-
74 yr old M w/ PMH of HTN, paroxysmal Afib, BPH - presenting w/ NSTEMI. Psychiatry consulted due to concerns of anxiety & depression as pt has significant stressors, specifically adult son living with him and unable to support himself &
currently in hospice.
Pt does acknowledge feeling depressed and anxious due to his stressors. Anxiety attributed mainly to financial stressors as he is paying for 's hospice, his own bills and those of his adult son who is unable to work since last year due to
medical issues. Also with discord with other 2 children who seem to disagree with his allowing their sibling to live with him. He says that this anxiety has not been disruptive however and has felt appropriate, aside from nighttime when it was
disrupting his sleep. He reports that low dose ativan prescribed by his PCP has been very helpful for this however and he has been feeling better in this regard.
Regarding depression, pt says that he feels he is not clinically depressed but rather appropriately grieving. Has been for 56 years and is not only grieving the impending loss of his 'best friend' but having to watch her suffer with her
illness, which is understandably quite painful. At times tears up when talking about this, however is able to participate in interview overall with appropriate affect. He does admit that when he thinks of his eventually passing, he does not
want to continue without her, however is quite adamant that he is not suicidal and has no intent or desire to kill himself, rather if something were to happen to him he would be OK with this. He does also spontaneously say that he knows once she
passess and some time goes by, he may very well feel differently and learn to live with his grief. At this time he remains future oriented to being there for his , as well as for being there for his son whom he does not want to abandon given
that his son needs his support. He understandably is not enjoying hobbies and is having feelings of sadness and loneliness, but this is not described as out of proportion to that expected of what he is going through. He does note that he has a long
time friend who had lost his years ago with whom he meets often and finds a lot of solace and support in this. He denies experiencing depression or anxiety prior to current stressors, and notes that he had been processing his grief and starting
to cope better prior to being admitted in the hospital. This admission & NSTEMI were understandably stressful, and he found himself again feeling more emotional - however as the days have passed he is finding himself returning to better coping again.
He is adamant that he does not want an antidepressant as he feels his feelings are appropriate to what he is going through. Did provide him with information about risks vs benefits of antidepressant and pt aware that if he finds himself struggling
this is an option. Does not want anything for anxiety at this time either aside from current low dose Ativan at bedtime as he has found this very helpful for his sleep.
MSE: male, good eye contact, speech nl rate & rhythm, cooperative. Mood is sad, affect is appropriate. Denies si/hi/avh/delusions. Thought process linear & logical. AAOx3. Memory not formally tested. Insight/judgement good.
Acute stress reaction/grief
1. No acute psychiatric interventions at this time, would continue home dose of low dose ativan at bedtime
--- NOTE | 2024-04-10 18:34 | PTCARENOTE ---
Pt refused Atorvastatin. He wants to talk to the inspector precision assembly or the hospitalist. Dr Blandon called the Pt in his room and spoke with him. The Pt is not sure if he want to be discharged or not tonight.
--- NOTE | 2024-04-10 19:39 | PTCARENOTE ---
Patient discharged to home. IV and telemetry removed. Discharge teaching completed, verbalized understanding. Patient transported to son's car via wheelchair
== END 2024-04-10 20:30 | disposition home or self-care (01) | DRG 322 ==
LOC: IVU 22:55
PROVIDERS: Internal Medicine Interventional Cardiology; Nurse Practitioner; Physician Assistant; ADMITTING PHYSICIAN Student in an Organized Health Care Education/Training Program; ATTENDING PHYSICIAN Internal Medicine; CONSULT PHYSICIAN Psychiatry & Neurology Psychiatry; EMERGENCY PHYSICIAN Emergency Medicine; FAMILY PHYSICIAN Family Medicine; OTHER PHYSICIAN Internal Medicine Cardiovascular Disease
PROC: 4A033BC Measurement of Arterial Pressure, Coronary, Percutaneous Approach (ICD-10-PCS; 2024-04-09)
PROC: B2111ZZ Fluoroscopy of Multiple Coronary Arteries using Low Osmolar Contrast (ICD-10-PCS; 2024-04-09)
PROC: 4A023N7 Measurement of Cardiac Sampling and Pressure, Left Heart, Percutaneous Approach (ICD-10-PCS; 2024-04-09)
PROC: 027135Z Dilation of Coronary Artery, Two Arteries with Two Drug-eluting Intraluminal Devices, Percutaneous Approach (ICD-10-PCS; 2024-04-09)
DX: I21.4 Non-ST elevation (NSTEMI) myocardial infarction (principal); I48.92 Unspecified atrial flutter; I50.32 Chronic diastolic (congestive) heart failure; I48.0 Paroxysmal atrial fibrillation; F41.9 Anxiety disorder, unspecified; N40.0 Benign prostatic hyperplasia without lower urinary tract symptoms; K21.9 Gastro-esophageal reflux disease without esophagitis; E11.9 Type 2 diabetes mellitus without complications; G47.33 Obstructive sleep apnea (adult) (pediatric); I25.10 Atherosclerotic heart disease of native coronary artery without angina pectoris; E66.9 Obesity, unspecified; M19.90 Unspecified osteoarthritis, unspecified site; Z66 Do not resuscitate; I11.0 Hypertensive heart disease with heart failure; F43.0 Acute stress reaction; F43.21 Adjustment disorder with depressed mood; I05.2 Rheumatic mitral stenosis with insufficiency; Z68.34 Body mass index [BMI] 34.0-34.9, adult; Z91.199 Patient's noncompliance with other medical treatment and regimen due to unspecified reason; Z87.891 Personal history of nicotine dependence; Z79.01 Long term (current) use of anticoagulants; Z79.82 Long term (current) use of aspirin
CPT/HCPCS: 71275; 80048; 80053; 80061; 82962; 83036; 84484; 85025; 85027; 85347; 85610; 85730; 93005; 93288; 93306; 93458; 93571; 96374; 96375; 99152; 99153; 99285; C1725; C1769; C1874; C1894; C9600; J0153; Q9967

== ENCOUNTER 2024-05-04 23:01 | Emergency (ER) | payer MEDICARE, OTHER, SELFPAY ==
[2024-05-04] MEDS: VERSED 2 MG IV (23:37)
[2024-05-04] MEDS: DIPRIVAN 20 MG IV (23:39)
[2024-05-04] MEDS: NSS 250 IV (23:43)
[2024-05-04 23:54] LABS: % Basophils 0.9 % (0-2); % Eosinophils 1.3 % (0-6); % Immature Granulocytes 0.4 % (0-0.5); % Lymphocytes 24.6 % (20.5-51.1); % Monocytes 15.7 % (1.7-9.3); % Neutrophils 57.1 % (42.2-75.2); Absolute Basophils 0.1 10^3/uL (0-0.2); Absolute Eosinophils 0.1 10^3/uL (0-0.7); Absolute Lymphocytes 2.3 10^3/uL (1.2-3.4); Absolute Monocytes 1.5 10^3/uL (0.1-0.6); Absolute Neutrophils 5.3 10^3/uL (1.4-6.5); Hematocrit 39.3 % (39.0-52.0); Hemoglobin 13.1 g/dL (13.0-18.0); Mean Corp Hgb Conc. 33.3 g/dL (33.0-37.0); Mean Corpuscular Hgb 29.2 pg (27.0-31.0); Mean Corpuscular Volume 87.5 fL (80.0-94.0); Mean Platelet Volume 10.5 fL (7.4-10.4); Nucleated Red Blood Cells % 0 % (-); Platelet Count 151 10^3/uL (130-400); Red Blood Cell Count 4.49 10^6/uL (4.70-6.10); Red Cell Dist. Width 13.4 % (11.5-14.5); White Blood Cell Count 9.2 10^3/uL (4.8-10.8)
--- NOTE | 2024-05-05 00:11 | ED.GENMED ---
History of Present Illness
General
Chief Complaint: Heart Rate Problem
Source: patient
Exam Limitations: none
Time Seen by Provider: 05/04/24 23:13
Nursing documentation reviewed up to this point in time: agreed with
History of Present Illness
History of Present Illness:
Patient with history of paroxysmal atrial fibrillation and coronary artery disease, status post stent placement 2 weeks ago, presents to ED secondary to recurrent chest palpitations along with dizziness, while he was at home, shortly prior to
arrival. Since recent procedure, patient has discontinued Xarelto, and is currently taking aspirin and Plavix. Denies shortness of breath. Denies nausea or vomiting. Denies diaphoresis.
Past History
Past History
ED Past Medical History: Arrthythmia, GERD, HTN, NIDDM and Other
ED Past Surgical History: Cardiac and Orthopedic
Social History
Tobacco: Former smoker
Alcohol: Occasional
Drug: None
Personal:
Living: with family
Employment: Retired
Family History
Family History: Other (Noncontributory)
Review of Systems
Review of Systems
Allergies reviewed?: Yes
All Other Systems: ROS reviewed and negative except as documented in HPI and ROS
Constitutional: Reports no symptoms
Respiratory: Reports no symptoms
Cardiac: Reports palpitations
ABD/GI: Reports no symptoms
Musculoskeletal: Reports no symptoms
Skin: Reports no symptoms
Neurological: Reports dizzy
Phy Exam
Physical Exam
Physical Exam:
Physical Exam
General: mild distress, not acutely ill. afebrile. tachycardic
Head: nc/at. eomi
Neck: supple. no meningeal signs.
Heart: irregular irregular, tachycardic, no murmur. equal radial pulses.
Lungs: no acute respiratory distress. clear bilaterally
Abdomen: normal bowel sounds. not tender.
Neuro: alert and oriented. no focal neurological deficits
Skin: no rash
Psychiatric: well kept. interactive and cooperative
Extremities: no edema. no calf tenderness.
Course
Orders/Labs/Results
Orders:
Orders
05/04/24 23:08
Electrocardiogram (*1) Urgent
Reason for Study: Atrial Fibrillation
EKG- Treatment ONCE
05/04/24 23:24
Add On- LAB Urgent
Tests Added?: magnesium, TSH to reflex free T4
05/04/24 23:25
0.9% Sodium Chloride 250 ml [Nss] 250 ml IV BOLUS
05/04/24 23:31
Midazolam HCl [Versed] 2 mg .ROUTE .STK-MED ONE
05/04/24 23:38
Propofol [Diprivan] 20 ml .ROUTE .STK-MED
05/04/24 23:41
Electrocardiogram (*1) Urgent
Reason for Study: Atrial Fibrillation
EKG- Treatment ONCE
05/04/24 23:42
Midazolam HCl [Versed] 2 mg IV NOW STA
05/04/24 23:45
Rivaroxaban [Xarelto] 20 mg PO QPM
05/04/24 23:46
Complete Blood Count/With Diff Urgent
Comprehensive Metabolic Panel Urgent
Free T4 Urgent
Magnesium Urgent
Comment: ADD ON
TSH Reflex To Free T4 Urgent
Comment: ADD ON
Troponin I Urgent
05/04/24 23:48
ASA Classification Routine
Propofol [Diprivan] 20 mg IV NOW STA
05/05/24 00:10
Diltiazem [Cardizem] 60 mg PO NOW STA
Abnormal Lab Results
05/04/24
23:46
RBC 4.49 L 10^6/uL
(4.70-6.10)
MPV 10.5 H fL
(7.4-10.4)
Absolute Monos (auto) 1.5 H 10^3/uL
(0.1-0.6)
Monocytes % 15.7 H %
(1.7-9.3)
Total Protein 5.7 L g/dl
(6.3-8.2)
Albumin 3.4 L g/dl
(3.5-5.0)
TSH (Reflex) 4.95 H uIU/ml
(0.47-4.68)
05/04/24 23:46
05/04/24 23:46
Vital Signs
Initial and Last Documented VS:
Initial Vital Signs
Pulse Resp
151 15
05/04/24 23:05 05/04/24 23:05
Last Documented Vital Signs
Temp Pulse Resp BP Pulse Ox
97.6 F 79 18 111/62 98
05/04/24 23:09 05/05/24 01:20 05/05/24 01:20 05/05/24 01:20 05/05/24 01:20
Procedures
Moderate Sedation
ASA Risk Score: Class I
Chart and allergies reviewed: Yes
Consent for anesthesia obtained: Yes
Time out completed (validating right patient & procedure): Yes
History of difficult intubation: No
Airway free of obstruction: Yes
Patient has a gag reflex: Yes
Patient is able to open mouth: Yes
Patient has no dentures: Yes
Patient has no loose teeth: Yes
Medication administered by Provider during Moderate Sedation: IV Propofol (mg)
Total dose administered: 20
Time drug administered: 23:39
Moderate Sedation Procedure End Time: 23:49
Comment: Versed 2mg also administered
MDM/Problems Addressed
MDM/Problems Addressed:
Shortly after initial evaluation, while receiving IV fluids, patient noted to become more hypotensive with increased dizziness. At this time, after discussion with patient, decision made to perform emergent cardioversion.
Procedural consent on the chart.
Prior to cardioversion, spoke with on-call cardiology, Dr. Jairo Vázquez. Advises patient to be started on Xarelto along with continuation of Plavix, but discontinuing aspirin, after cardioversion.
Cardioversion successful with 200 J, confirmed by repeat EKG
Patient remains in sinus rhythm with stable blood pressure during extended course of observation, post cardioversion. Patient will be discharged home in stable condition, to the care of of his son. Patient states that he already has an appointment
with his wrapper off on afternoon. Patient will discuss his condition as well as potential adjustment of his medications at that time. Until then, patient advised to restart taking Xarelto along with Plavix. Patient will be advised to
discontinue aspirin immediately.
Critical care statement: A total of 40 minutes of critical care time was provided for this patient. This includes management of unstable vital signs, evaluation of the patient at bedside, reviewing the patient's pertinent medical records, discussion
with consultants, review of old EKGs and review of pertinent medical records. This time with separate from time utilized to perform the aforementioned documented procedures
*Critical Care Note
Total Time (30-74mins, 75-104mins- exclusive of procedures): 40 min
ED Attending Note
-
Portions of this chart may have been created with voice recognition software.� Occasional wrong word or��sound alike� substitutions may have occurred due to the inherent limitations of voice recognition software.
Discharge Plan
Departure
Patient Disposition: Home (Routine Discharge)
Date of Disposition: 05/05/24
Time of Disposition: 01:32
Patient with high blood pressure during this ER visit?: No
Condition: Fair
Discharge Problem:
Atrial fibrillation
Instructions: Atrial Fibrillation (DC)
Prescriptions:
No Action
Probiotic 3 billion cell Capsule
3,000 mmu cells PO DAILY
latanoprost 0.005 % Drops
1 drp BOTH EYES HS
loratadine [Claritin] 10 mg Tablet
10 mg PO DAILY
diltiazem HCl 120 mg Capsule,Extended Release 24 Hr
120 mg PO DAILY
sotalol 80 mg Tablet
80 mg PO BID
famotidine 20 mg Tablet
20 mg PO DAILY
aspirin 81 mg Tablet,Delayed Release (Dr/Ec)
81 mg PO DAILY
lisinopril 5 mg tablet
5 mg PO DAILY
furosemide 40 mg Tablet
40 mg PO DAILY PRN (Reason: swelling )
acetaminophen [Tylenol] 325 mg Tablet
650 mg PO Q6H PRN (Reason: pain )
tadalafil 5 mg Tablet
5 mg PO DAILY PRN (Reason: ED)
atorvastatin 80 mg Tablet
80 mg PO QPM Qty: 30 0RF
clopidogrel [Plavix] 75 mg tablet
75 mg PO DAILY Qty: 30 11RF
pantoprazole [Protonix] 40 mg tablet,delayed release (DR/EC)
40 mg PO DAILY Qty: 30 0RF
Referrals:
Jairo Vázquez MD [Active] -
Graham Adams MD [Family Provider] -
Activity Restrictions/Additional Instructions:
As discussed, please follow-up with your wrapper off, as scheduled on afternoon for reevaluation. In the meantime, recommend restarting Xarelto 20 mg at nighttime along with Plavix. Please discontinue aspirin immediately.
Interventions
Interventions:
*Risk Screen - Suicide Last Done: 05/04/24 23:09
*General Assessment Last Done: 05/04/24 23:15
*Neglect/Abuse Screening Last Done: 05/04/24 23:09
*Nursing Disposition Last Done: 05/05/24 02:06
ED- Cardiac Assessment Last Done: 05/04/24 23:11
ED- Pulmonary Assessment Last Done: 05/04/24 23:14
Discharge Date and Time
Discharge Date/Time: 05/05/24 02:06
Print Language: MOHAWK
[2024-05-05 00:12] LABS: ALT (SGPT) 13 U/L (0-50); AST (SGOT) 20 U/L (17-59); Albumin 3.4 g/dl (3.5-5.0); Alkaline Phosphatase 67 U/L (38-126); Blood Urea Nitrogen 19 mg/dl (9-20); Calcium 8.5 mg/dl (8.4-10.2); Carbon Dioxide 22 mmol/L (22-30); Chloride 107 mmol/L (98-107); Estimated Creatinine Clearance 96 ml/min; Glucose 89 mg/dl (70-99); Potassium 3.8 mmol/L (3.5-5.1); Sodium 135 mmol/L (135-145); Total Bilirubin 0.3 mg/dl (0.2-1.3); Total Protein 5.7 g/dl (6.3-8.2); eGFR > 60.00
[2024-05-05 00:14] LABS: Troponin I < 0.012 ng/ml
[2024-05-05] MEDS: XARELTO 20 MG PO (00:18)
[2024-05-05] MEDS: CARDIZEM 60 MG PO (00:44)
[2024-05-05 00:45] LABS: TSH Reflex To Free T4 4.95 uIU/ml (0.47-4.68)
[2024-05-05 01:15] LABS: Free T4 1.52 ng/dl (0.78-2.19)
== END 2024-05-05 02:06 | disposition home or self-care (01) ==
LOC: EMR 23:01
PROVIDERS: EMERGENCY PHYSICIAN Emergency Medicine; FAMILY PHYSICIAN Family Medicine
DX: I48.91 Unspecified atrial fibrillation (principal); R00.2 Palpitations; R04.2 Hemoptysis; K21.9 Gastro-esophageal reflux disease without esophagitis; I10 Essential (primary) hypertension; E11.9 Type 2 diabetes mellitus without complications; I25.10 Atherosclerotic heart disease of native coronary artery without angina pectoris; Z87.891 Personal history of nicotine dependence; Z95.5 Presence of coronary angioplasty implant and graft
CPT/HCPCS: 99284; 92960; 99152; 96374; 96375; 80053; 83735; 84439; 84443; 84484; 85025; 93005

== ENCOUNTER 2024-05-05 19:59 | Emergency (ER) | payer MEDICARE, OTHER, SELFPAY ==
[2024-05-05 20:20] LABS: % Basophils 0.8 % (0-2); % Eosinophils 1.7 % (0-6); % Immature Granulocytes 0.4 % (0-0.5); % Monocytes 14.3 % (1.7-9.3); % Neutrophils 62.8 % (42.2-75.2); Absolute Basophils 0.1 10^3/uL (0-0.2); Absolute Eosinophils 0.2 10^3/uL (0-0.7); Absolute Lymphocytes 1.8 10^3/uL (1.2-3.4); Absolute Monocytes 1.3 10^3/uL (0.1-0.6); Absolute Neutrophils 5.7 10^3/uL (1.4-6.5); Hematocrit 38.3 % (39.0-52.0); Hemoglobin 12.9 g/dL (13.0-18.0); Mean Corp Hgb Conc. 33.7 g/dL (33.0-37.0); Mean Corpuscular Hgb 29.6 pg (27.0-31.0); Mean Corpuscular Volume 87.8 fL (80.0-94.0); Mean Platelet Volume 10.1 fL (7.4-10.4); Nucleated Red Blood Cells % 0 % (-); Platelet Count 146 10^3/uL (130-400); Red Blood Cell Count 4.36 10^6/uL (4.70-6.10); Red Cell Dist. Width 13.5 % (11.5-14.5)
[2024-05-05 20:33] LABS: APTT 55.8 Sec (23.4-35.0)
[2024-05-05 20:44] LABS: ALT (SGPT) 12 U/L (0-50); AST (SGOT) 17 U/L (17-59); Albumin 3.8 g/dl (3.5-5.0); Alkaline Phosphatase 67 U/L (38-126); Blood Urea Nitrogen 16 mg/dl (9-20); Carbon Dioxide 25 mmol/L (22-30); Chloride 104 mmol/L (98-107); Glucose 103 mg/dl (70-99); Potassium 4.2 mmol/L (3.5-5.1); Sodium 135 mmol/L (135-145); Total Bilirubin 0.4 mg/dl (0.2-1.3); Total Protein 6.3 g/dl (6.3-8.2); eGFR > 60.00
--- NOTE | 2024-05-05 22:48 | ED.GENMED ---
History of Present Illness
General
Chief Complaint: Heart Rate Problem
Source: patient
Exam Limitations: none
Time Seen by Provider: 05/05/24 22:45
History of Present Illness
History of Present Illness:
This is a 74 year old male that comes in with c/o nose bleeding. States that he was here last night and was cardioverted. Patient was on Plavix and then they added Xarelto. Patient state that today he has had a runny nose and when he blows his nose
he had a nose bleed. States that his HR has been low and he just didn't feel good. States that he has an appointment with the University Teacher tomorrow at 3:20pm. State that he also called his University Teacher at [facility]. States that he has had a headache.
Denies any fever, chills, chest Pain, SOB, abd pain, nausea, vomiting, diarrhea, dizziness, urinary burning.
Past History
Past History
ED Past Medical History: Arrthythmia (Atrial fib), CHF, GERD, HTN, NIDDM and Other (PNA, Sleep apnea, Diverticulitis, Pancreatitis, Glaucoma, )
ED Past Surgical History: Cardiac (Ablation X 5, Stents X 2) and Orthopedic (Left hand surgery, Left shoulder surgery. Left total knee replacement)
Social History
Tobacco: Former smoker
Alcohol: Occasional
Drug: None
Personal:
Living: with family
Employment: Retired
Family History
Family History: Other (Noncontributory)
Review of Systems
Review of Systems
All Other Systems: ROS reviewed and negative except as documented in HPI and ROS
Constitutional: Reports no symptoms; Denies fever or chills
EENT: Reports other (Occasional nose bleed)
Cardiac: Reports no symptoms; Denies chest pain or palpitations
ABD/GI: Reports no symptoms; Denies abdominal pain, nausea, vomiting or diarrhea
: Reports no symptoms; Denies dysuria, frequency or urgency
Musculoskeletal: Reports no symptoms
Skin: Reports no symptoms
Neurological: Reports headache; Denies dizzy
Psychiatric: Reports no symptoms
Phy Exam
General Physical Exam
General Presentation: well appearing and no apparent distress
General age: appears stated age
General Skin: warm and dry
General Habitus: elderly
General Mental: alert
General Hydration: appears well hydrated
ENT Exam
ENT Exam: TM's normal, pharynx normal, neck supple and other (Negative for any nasal bleeding at this time. )
Eye Exam
Eye Exam: EOMI
Cardiovascular Exam
Cardiovascular Exam: regular rate/rhythm, normal peripheral pulses and other (Murmur)
Pulmonary Exam
Pulmonary Exam: lungs clear, no respiratory distress, no rales, chest non tender, no crackles, no rhonchi, no wheezing and no cough
Gastrointestinal Exam
Gastrointestinal Exam: normal bowel sounds, non tender, soft, no organomegaly, no pulsatile mass and non distended
Musculoskeletal Exam
Musculoskeletal Exam: full ROM and no edema
Skin Exam
Skin Exam: normal color, warm/dry, no rash and no petechia
Psychiatric Exam
Psychiatric Exam: normal mood/affect
Course
Orders/Labs/Results
Orders:
Orders
05/05/24 20:05
Electrocardiogram (*1) Urgent
Reason for Study: Bradycardia / Tachycardia
CT Head W/o Iv Contrast Urgent
Comment:
Reason For Exam: dull headache on thinners
05/05/24 20:06
EKG- Treatment ONCE
05/05/24 20:14
Complete Blood Count/With Diff Urgent
Comprehensive Metabolic Panel Urgent
PTT Urgent
Abnormal Lab Results
05/05/24
20:14
RBC 4.36 L 10^6/uL
(4.70-6.10)
Hgb 12.9 L g/dL
(13.0-18.0)
Hct 38.3 L %
(39.0-52.0)
Absolute Monos (auto) 1.3 H 10^3/uL
(0.1-0.6)
Lymphocytes % 20.0 L %
(20.5-51.1)
Monocytes % 14.3 H %
(1.7-9.3)
APTT 55.8 H Sec
(23.4-35.0)
Glucose 103 H mg/dl
(70-99)
05/05/24 20:14
05/05/24 20:14
H/H slightlylow. PTT 55.8, Glucose nonfasting
Vital Signs
Initial and Last Documented VS:
Initial Vital Signs
Temp Pulse Resp BP Pulse Ox
98.2 F 59 20 144/62 99
05/05/24 20:02 05/05/24 20:02 05/05/24 20:02 05/05/24 20:02 05/05/24 20:02
Last Documented Vital Signs
Temp Pulse Resp BP Pulse Ox
98.2 F 57 13 140/58 99
05/05/24 20:02 05/05/24 22:45 05/05/24 22:45 05/05/24 22:43 05/05/24 22:45
MDM/Problems Addressed
Differential Diagnosis Includes:
Epistaxis, Headache
MDM/Problems Addressed:
This is a 74 year old male that comes in with c/o headache and a nose bleed. States that he was here last night and was cardioverted. Patient was on Plavix but they added Xarelto last night. Patient has an appointment with the University Teacher tomorrow
afternoon.
Explained to patient that his Hgb is stable and he has no active bleeding at this time. CT of the head is normal. Will discharge patient home and have him follow up with the University Teacher as scheduled. Return with any concerns.
Chronic conditions affecting care:
ON Two blood thinners
Chronic conditions affecting care: CAD
Acute Exacerbation and/or Progression of Chronic Illness:
On two blood thinners
Acute Exacerbation and/or Progression of Chronic Illness: CAD
*Radiology
Radiology exam reviewed: radiology read reviewed (CT head-NO evidence of acute intracranial abnormality)
*Critical Care Note
Total Time (30-74mins, 75-104mins- exclusive of procedures): Not Applicable
ED Attending Note
-
Portions of this chart may have been created with voice recognition software.� Occasional wrong word or��sound alike� substitutions may have occurred due to the inherent limitations of voice recognition software.
Discharge Plan
Departure
Patient Disposition: Home (Routine Discharge)
Date of Disposition: 05/05/24
Time of Disposition: 23:29
Patient with high blood pressure during this ER visit?: Yes
Condition: Good
Covid-19: Not Applicable
Discharge Problem:
Epistaxis, Headache
Instructions: Headache, Adult ED, Nosebleeds ED, BLOOD PRESSURE
Prescriptions:
No Action
Probiotic 3 billion cell Capsule
3,000 mmu cells PO DAILY
latanoprost 0.005 % Drops
1 drp BOTH EYES HS
loratadine [Claritin] 10 mg Tablet
10 mg PO DAILY
diltiazem HCl 120 mg Capsule,Extended Release 24 Hr
120 mg PO DAILY
sotalol 80 mg Tablet
80 mg PO BID
famotidine 20 mg Tablet
20 mg PO DAILY
aspirin 81 mg Tablet,Delayed Release (Dr/Ec)
81 mg PO DAILY
lisinopril 5 mg tablet
5 mg PO DAILY
furosemide 40 mg Tablet
40 mg PO DAILY PRN (Reason: swelling )
acetaminophen [Tylenol] 325 mg Tablet
650 mg PO Q6H PRN (Reason: pain )
tadalafil 5 mg Tablet
5 mg PO DAILY PRN (Reason: ED)
atorvastatin 80 mg Tablet
80 mg PO QPM Qty: 30 0RF
clopidogrel [Plavix] 75 mg tablet
75 mg PO DAILY Qty: 30 11RF
pantoprazole [Protonix] 40 mg tablet,delayed release (DR/EC)
40 mg PO DAILY Qty: 30 0RF
Referrals:
Jairo Vázquez MD [Active] - 05/06/24 3:30 pm
Graham Adams MD [Family Provider] -
Activity Restrictions/Additional Instructions:
As discussed, your Hgb is stable. Your nose is not bleeding at this time. This is most likely due to the two blood thinners. Please follow up with the University Teacher tomorrow as scheduled. IF YOU HAVE ANY OTHER CONCERNS PLEASE RETURN TO THE EMERGENCY
ROOM.
Interventions
Interventions:
*Risk Screen - Suicide Last Done: 05/05/24 20:02
*General Assessment Last Done: 05/05/24 20:02
*Neglect/Abuse Screening Last Done: 05/05/24 20:02
ED- Fall Risk Assessment Last Done: 05/05/24 22:45
ED- Cardiac Assessment Last Done: 05/05/24 22:45
ED- Pulmonary Assessment Last Done: 05/05/24 22:45
Discharge Date and Time
Print Language: SPANISH
== END 2024-05-05 23:34 | disposition home or self-care (01) ==
LOC: EMR 19:59
PROVIDERS: Emergency Medicine; EMERGENCY PHYSICIAN Emergency Medicine; FAMILY PHYSICIAN Family Medicine
DX: R04.0 Epistaxis (principal); I48.91 Unspecified atrial fibrillation; I11.0 Hypertensive heart disease with heart failure; I50.9 Heart failure, unspecified; E11.9 Type 2 diabetes mellitus without complications; G47.30 Sleep apnea, unspecified; H40.9 Unspecified glaucoma; I25.10 Atherosclerotic heart disease of native coronary artery without angina pectoris; K21.9 Gastro-esophageal reflux disease without esophagitis; Z87.891 Personal history of nicotine dependence; Z95.5 Presence of coronary angioplasty implant and graft
CPT/HCPCS: 99284; 70450; 80053; 85025; 85730; 93005

== ENCOUNTER 2024-06-02 12:44 | Day surgery (SDC) | payer MEDICARE, OTHER, SELFPAY ==
[2024-06-02] MEDS: VANCOCIN 300 ML IV (13:41)
[2024-06-02] MEDS: VANCOCIN 300 MG IV (13:41)
[2024-06-02] MEDS: SOLU-CORTEF 200 MG IV (14:29)
[2024-06-02] MEDS: BENADRYL 50 MG IV (14:32)
--- NOTE | 2024-06-02 14:49 | ITS.CL.PACE ---
Marketing Information Manager - Pacemaker Implant
Pacemaker Implant
Procedure Report:
PACEMAKER IMPLANT REPORT
Date of Procedure: June 02, 2020
Procedure:
Implantation of dual-chamber permanent pacemaker utilizing the left bundle branch for conduction system pacing
Removal of implanted loop recorder
Indication/Diagnosis:
Non-reversible symptomatic bradycardia due to sinus node dysfunction (tachycardia-bradycardia syndrome)
HISTORY:
Recurrent atrial fibrillation and rapid ventricular rates, highly symptomatic despite multiple ablations both at this institution and elsewhere.
He presents now for implantation of permanent pacemaker for tachycardia-bradycardia syndrome while continuing sotalol and potential subsequent consideration for AV colin ablation.
After informed consent was obtained, 'time out' was called and confirmed, the patient was prepped and draped in a sterile fashion. Lidocaine with epi was used for local anesthesia. Central venous access was obtained via subclavian venipuncture. An
incision was made along the right chest and a pre-pectoral pocket was formed. Using a Seldinger technique and peel-away sheaths, the pacing leads were placed under fluoroscopic guidance.
Fluoroscopy was used to determine likely anatomic site for left bundle branch pacing. The Medtronic C315 sheath was used to deliver the Medtronic 3830 Selectsecure pacing lead with the helix exposed just exposed from the sheath tip during continuous
monitoring when pacemapping the septum during gentle clockwise rotation to obtain a paced QRS morphology of a W pattern in lead V1. Once the suspected optimal site was identified, lead deployment was performed with several rapid rotations as paced
QRS morphology was intermittently monitored until a paced QRS complex in lead V1 demonstrated development of an R wave (QR).
Unipolar pacing impedance dropped by approximately 100 ohms suggesting it had reached the left ventricular subendocardial.
Stable VEgm injury current is present at final lead position suggesting there was no perforation through the septum into the LV cavity.
Final unipolar pacing impedance is 1200 Ohms
Unipolar pacing threshold is stable at 0.5 V @ 0.4 ms.
Final conduction system paced QRS complex duration is 112 ms
LVAT is 63 ms and peak V5 -> peak V1 timing is 65 ms
Right atrial lead was placed at the RAA. There was some difficulty in finding a good right atrial position with adequate pacing thresholds but ultimately excellent parameters were obtained.
Once testing (see below) showed adequate and stable function, the leads were secured using the suture sleeves. The pocket was liberally irrigated with antibiotic solution. The leads were connected to the generator header and the leads and
generator were placed within the pocket. Fluoroscopy confirmed stable lead position. The pocket was closed in the typical fashion.
Fluoroscopy was used to guide lead placement.
IMPLANTS:
Medtronic [id number], SN: [id number], Left Pectoral
RA: Medtronic 5076-45, SN: [id number], RAA
RV: Medtronic 3830 , SN:[id number], Interventricular septum at LBB
DEVICE TESTING:
Sensing: RA 2.8 mV, RV 8 mV
Capture: RA 1.5 V@0.4ms, RV 0.5 V@0.4ms
Ohms: RA 836, RV 855 (bipolar)
FINAL PROGRAMMING
Charbel Pacing: AAIR+ 60-130 ppm
COMPLICATIONS:
None
CONCLUSIONS:
Successful implant of dual chamber permanent pacemaker utilizing Left Bundle Branch conduction system capture for pacing.
RECOMMENDATIONS:
Post-op care (tele, CXR, IV abx)
In-Office wound check in 5-7 days
Now that he has safety of pacemaker to prevent marked bradycardia, will take this opportunity to increase sotalol from 80 mg to 120 mg twice daily and reassess EKG in the morning following QTc closely. If we can obtain significantly improved rhythm
control with higher dose sotalol we may be able to avoid AV colin ablation.
--- NOTE | 2024-06-02 16:43 | ITS.CL.IMPLP ---
Lab Rn - Implant Loop
Implant Loop
Procedure Report:
LINQ IMPLANTED MONITOR REMOVAL
Date of Procedure: June 02, 2024
PROCEDURES:
1. Removal of implanted loop recorder
INDICATION FOR PROCEDURE:
1. Loop Recorder at end of battery longevity
The patient was prepped and draped in a sterile fashion.
SEDATION: Via the anesthesia department with conscious sedation
Lidocaine with epi was used for local anesthesia. An incision was made along the prior incision and the Linq monitor was carefully dissected from the pocket. The pocket was liberally irrigated with antibiotic solution. The pocket was closed in
the typical fashion.
COMPLICATIONS:
None
CONCLUSIONS:
1. Removal of implanted loop recorder.
RECOMMENDATIONS:
In-Office wound check in 7-14 days.
--- NOTE | 2024-06-02 17:30 | PTCARENOTE ---
Addendum entered by Melba Bergman RN 06/02/24 17:44:
patient also has multiple bruises on arms but didnot break the skin.
Original Note:
received patient from label drier, RCW has Acuseal, pressure dsg., immobilizer. site has no ecchymosis, hematoma although patient states that it is aching. EKG obtained as ordered. monitor placed, NSR, VSS. oriented to room and surroundings. admission
completed and patient ready to order his dinner.
[2024-06-02] MEDS: PROTONIX 40 MG PO (18:07)
[2024-06-02] MEDS: TYLENOL 650 MG PO ×2 (18:07→22:57)
--- NOTE | 2024-06-02 18:08 | PTCARENOTE ---
patient c/o RCW pacer site aching, now he rates it 3 out of 10, Tylenol po given as ordered.
--- NOTE | 2024-06-02 18:20 | PTCARENOTE ---
patient expressed that he is an anxious person and short with people due to his being in a home on hospice. patient talked to me and I offered him emotional support.
[2024-06-02] MEDS: BETAPACE 120 MG PO (20:00)
[2024-06-02] MEDS: ATIVAN 0.5 MG PO (22:58)
[2024-06-02] MEDS: ANCEF 5 IV (22:58)
[2024-06-02] MEDS: XALATAN OPHTHALMIC SOLUTION 1 DROP BOTH EYES (23:11)
[2024-06-03] MEDS: ROXICODONE 5 MG PO ×2 (00:42→05:20)
--- NOTE | 2024-06-03 04:07 | PTCARENOTE ---
Pt. presents for scheduled removal of loop recorder and placement of PPM for symptomatic bradycardia
06/02- Implantation of dual-chamber PPM, settings AAIR+ 60-130
06/02- CXR- Right chest wall 2-lead pacemaker with leads projecting over the right atrium and right ventricle. No pneumothorax.
[2024-06-03] MEDS: ANCEF 5 IV (05:20)
[2024-06-03 05:31] LABS: Hematocrit 35.6 % (39.0-52.0); Hemoglobin 11.8 g/dL (13.0-18.0); Mean Corp Hgb Conc. 33.1 g/dL (33.0-37.0); Mean Corpuscular Hgb 29.4 pg (27.0-31.0); Mean Corpuscular Volume 88.8 fL (80.0-94.0); Mean Platelet Volume 9.9 fL (7.4-10.4); Platelet Count 150 10^3/uL (130-400); Red Blood Cell Count 4.01 10^6/uL (4.70-6.10); Red Cell Dist. Width 14.1 % (11.5-14.5)
[2024-06-03 05:53] LABS: Blood Urea Nitrogen 21 mg/dl (9-20); Calcium 8.9 mg/dl (8.4-10.2); Carbon Dioxide 27 mmol/L (22-30); Chloride 106 mmol/L (98-107); Estimated Creatinine Clearance 94 ml/min; Glucose 99 mg/dl (70-99); Magnesium 1.9 mg/dl (1.6-2.3); Potassium 3.8 mmol/L (3.5-5.1); Sodium 139 mmol/L (135-145); eGFR > 60.00
--- NOTE | 2024-06-03 06:25 | PTCARENOTE ---
Pt. received at change of shift. VSS, NSR on monitor. PPM pressure dressing on right chest wall dry/intact with no complications noted. Pt. resistant at first to wearing immobilizer due to it being uncomfortable. Immobilizer adjusted and Tylenol
and Ativan administered per order. Pt. continues to complain of discomfort at the site, PA notified and Brianna ordered and administered for pain, which pt. states gave him relief. Plan of care dicussed and pt verbalizes understanding. Can make needs
known. Call kemp within reach.
--- NOTE | 2024-06-03 08:05 | PTCARENOTE ---
Assumed care of pt from prev nsg shift; Pt AAOX3 & somewhat agitated this AM re: restricted diet. This RN explained purpose of heart healthy diet & pt declined info & stated 'it's his decision what to eat'. THis RN spoke w/cardiology & rec'd order
to change pt's diet to Regular for breakfast. Pt's VS stable w/HR in the 70's & BP this AM 125/60. Pt is SR w/1st deg AV block on telemetry monitoring. Pt's pain is 2/10 to R chest wall PPM site. Pt declining pain meds at this time. Pt anxious for
D/C today. Plan is for D/C after lunch today. Pt w/call kemp within reach & plan of care ongoing.
[2024-06-03] MEDS: BETAPACE 120 MG PO (08:37)
[2024-06-03] MEDS: ZESTRIL 5 MG PO (08:37)
[2024-06-03] MEDS: CLARITIN 10 MG PO (08:37)
[2024-06-03] MEDS: CARDIZEM CD 120 MG PO (08:37)
[2024-06-03] MEDS: PEPCID 20 MG PO (08:38)
[2024-06-03] MEDS: ASPIR LOW (ENTERIC COATED) 81 MG PO (08:38)
--- NOTE | 2024-06-03 08:41 | W.PN.CARDCBS ---
Addendum entered and electronically signed by Jairo Vázquez MD 06/03/24 12:08:
Patient seen, interviewed and examined by me.
Well-appearing, no acute distress
Right upper chest dressing is clean and dry
Regular rate and rhythm with normal S1 and S2, no S3 no S4. There is a grade 1/6 apical holosystolic murmur and no rubs. PMI is normally placed.
Lungs are clear to auscultation bilaterally without wheezes rales or rhonchi.
Abdomen soft nontender nondistended with normoactive bowel sounds
Extremities show trace pretibial edema bilaterally no clubbing or cyanosis.
Neurologic exam is grossly nonfocal.
Agree with advanced practice professionals assessment and plan as noted below.
I have increased sotalol to 120 mg twice a day from 80 mg twice a day. He received a dose last night and a dose again this morning with no marked prolongation of the QT corrected interval.
Pacemaker implantation has allowed safety net for increasing antiarrhythmic drug therapy to prevent worsening bradycardia and sick sinus syndrome.
Increased dose of sotalol may allow better rhythm control.
If we can obtain reasonable rhythm control we can avoid AV colin ablation. If not then AV colin ablation would be the next step in his arrhythmia management.
All of his questions have been answered.
Arm motion restrictions reviewed with the patient
Stable for discharge home today.
Original Note:
Today's Communication / Plan
-
Increase sotalol dose to 120
Check QTc 2 hr after dose
Resume Xarelto Friday thais
Impression / Plan
-
Primary care physician: Graham Ramesh MD
Primary EP: Dr. Dionte Vázquez and Dr. Richard of [facility]
Impression:
Non-reversible symptomatic bradycardia due to sinus node dysfunction (tachycardia-bradycardia syndrome)
post DC PPM [employer] and Loop explant 06/02/24
symptomatic paroxysmal atypical atrial flutter with RVR
paroxysmal atrial fibrillation with prior PVI 2017, 04/2022, 12/26/22, 06/10/23, 01/29/24 [facility]
chronic sotalol therapy
CAD s/p 2.5 mm Xience to prox Diag-1 and 2.25 mm Xience to prox OM-1 04/09/24
Chronic HFpEF
HTN
ZARIA not compliant with CPAP
s/p Linq 08/2022
Moderate MS with mean gradient 9 mmHg by echo 04/09/24
Obesity
OA s/p L TKR 04/30/23
Plan:
post PPM, site stable
tele SR 1 deg AVB with appropriate V pacing
CXR no PTX
Will Resume Xarelto on Friday evening
Activity restrictions reviewed
inc check 1 week at [facility]
Now that he has safety of pacemaker to prevent marked bradycardia, will take this opportunity to increase sotalol from 80 mg to 120 mg twice daily and reassess EKG in the morning following QTc closely. If we can obtain significantly improved rhythm
control with higher dose sotalol we may be able to avoid AV colin ablation.
EKG 2 hrs after am dose sotalol
if QTc stable d/c home
Progress Note - Editor
Subjective
Date of Service: June 03, 2024
no cp, sob, mild inc pain
Objective
Labs:
06/03/24 05:10
06/03/24 05:10
Labs
Hgb 11.8 g/dL (13.0-18.0) L 06/03/24 05:10
Hct 35.6 % (39.0-52.0) L 06/03/24 05:10
Plt Count 150 10^3/uL (130-400) 06/03/24 05:10
Sodium 139 mmol/L (135-145) 06/03/24 05:10
Potassium 3.8 mmol/L (3.5-5.1) 06/03/24 05:10
BUN 21 mg/dl (9-20) H 06/03/24 05:10
Creatinine 0.7 mg/dL (0.7-1.3) 06/03/24 05:10
Glucose 99 mg/dl (70-99) 06/03/24 05:10
Vital Signs and I&O:
Vital Signs
Temp Pulse Resp BP Pulse Ox
98 F 69 20 125/66 96
06/03/24 07:37 06/03/24 08:00 06/03/24 07:37 06/03/24 07:39 06/03/24 07:39
Vital Signs
Temp Pulse Resp BP Pulse Ox
98 F 69 20 125/66 96
06/03/24 07:37 06/03/24 08:00 06/03/24 07:37 06/03/24 07:39 06/03/24 07:39
Intake & Output
06/01/24 06/02/24 06/03/24 06/04/24
06:59 06:59 06:59 06:59
Output Total 500 / 500
Balance -500 / -500
Physical Exam
Physical Exam
NAD< AOX3
S1, S2, RRR
CTAB< non labored
SNTND bsx4
R CW Aquacel dressing c/d/i no HT, marked drainage, pressure dressing removed
Loop site dressing removed, c/d/i, steri strips in place
--- NOTE | 2024-06-03 09:29 | CM ---
Reviewed chart. Met with Mr. Carrero to review discharge plans. He states prior to admission he resides with his son in a first floor apartment without any steps to enter. He states prior to admission he was independent with ambulation and adls.
He states he does not have any DME in the home. He states his spouse is in the [facility] for dementia care. He states he has a prescription plan and uses [facility]. The discharge plan is to return home with his son when
medically stable.
[2024-06-03] MEDS: TYLENOL 650 MG PO (11:28)
--- NOTE | 2024-06-03 14:03 | PTCARENOTE ---
Discussed D/C instructions w/patient. Pt's IV line & tele monitor D/C'd. Pt left w/personal belongings including cell phone & civil preparedness training officer. Pt taken out via wheelchair by staff w/son providing transportation home.
--- NOTE | 2024-06-03 14:48 | W.DS.TRANS ---
DC Summary - [employer]
-
Discharge Instructions:
Discharge Diagnosis/Procedures Pacemaker implant, linq removal
Diet Low Cholesterol
Driving Restrictions No driving for 1 week
Bathing Restrictions OK to Shower
Instructions:
Stand-Alone Forms: DC Inst - Implanted Device
Changes to Home Medications: Yes
Discharge Medications:
DC Medications w/original date entered in [employer]
lactobacillus combination no.4 3 billion cell capsule (Probiotic) 3,000 mmu cells PO DAILY Supplement 12/26/22
latanoprost 0.005 % eye drops 1 drp BOTH EYES HS Eye Condition 04/17/23
loratadine 10 mg tablet (Claritin) 10 mg PO DAILY Allergies 04/18/23
diltiazem HCl 120 mg capsule,24 hr,extended release 120 mg PO DAILY Heart Disease/Condition 06/09/23
famotidine 20 mg tablet 20 mg PO DAILY Gastrointestinal Issue 06/17/23
aspirin 81 mg tablet,delayed release 81 mg PO DAILY Blood Clot Prevention/Tx 10/03/23
lisinopril 5 mg tablet 5 mg PO DAILY Blood Pressure 10/03/23
acetaminophen 325 mg tablet (Tylenol) 500 mg PO Q6H PRN pain 04/08/24
furosemide 40 mg tablet 40 mg PO DAILY PRN swelling 04/08/24
tadalafil 5 mg tablet 5 mg PO DAILY PRN ED 04/08/24
lorazepam 0.5 mg tablet 0.5 mg PO HS PRN anxiety 06/02/24
pantoprazole 40 mg tablet,delayed release (Protonix) 40 mg PO QPM GERD 06/02/24
rivaroxaban 20 mg tablet (Xarelto) 20 mg PO QPM 06/02/24
sotalol 120 mg tablet 120 mg PO BID #60 tabs 06/03/24
Home Medication Changes
INcreased sotalol to 120 bid from 80
Pending Results: No
== END 2024-06-03 13:49 | disposition home or self-care (01) ==
LOC: CATH 12:44
PROVIDERS: Nurse Practitioner; ATTENDING PHYSICIAN Internal Medicine Cardiovascular Disease; FAMILY PHYSICIAN Family Medicine
DX: I49.5 Sick sinus syndrome (principal); I48.0 Paroxysmal atrial fibrillation; Z09 Encounter for follow-up examination after completed treatment for conditions other than malignant neoplasm; I11.0 Hypertensive heart disease with heart failure; I50.9 Heart failure, unspecified; G47.33 Obstructive sleep apnea (adult) (pediatric); Z91.199 Patient's noncompliance with other medical treatment and regimen due to unspecified reason; I05.0 Rheumatic mitral stenosis; E66.9 Obesity, unspecified; M19.90 Unspecified osteoarthritis, unspecified site; Z96.652 Presence of left artificial knee joint; I44.0 Atrioventricular block, first degree; Z79.82 Long term (current) use of aspirin; K21.9 Gastro-esophageal reflux disease without esophagitis; Z79.899 Other long term (current) drug therapy; Z79.01 Long term (current) use of anticoagulants
CPT/HCPCS: 33208; 33286; 71045; 80048; 83735; 85027; 93005; C1769; C1785; C1887; C1892; C1898; Q9967

== ENCOUNTER 2024-08-02 23:10 | Emergency (ER) | payer MEDICARE, OTHER, SELFPAY ==
[2024-08-02 23:40] LABS: % Basophils 0.8 % (0-2); % Eosinophils 3.1 % (0-6); % Immature Granulocytes 0.5 % (0-0.5); % Lymphocytes 24.3 % (20.5-51.1); % Monocytes 13.9 % (1.7-9.3); % Neutrophils 57.4 % (42.2-75.2); Absolute Basophils 0.1 10^3/uL (0-0.2); Absolute Eosinophils 0.3 10^3/uL (0-0.7); Absolute Immature Granulocytes 0.1 10^3/uL (0-0.05); Absolute Lymphocytes 2.2 10^3/uL (1.2-3.4); Absolute Monocytes 1.3 10^3/uL (0.1-0.6); Absolute Neutrophils 5.3 10^3/uL (1.4-6.5); Hematocrit 39.9 % (39.0-52.0); Hemoglobin 13.2 g/dL (13.0-18.0); Mean Corp Hgb Conc. 33.1 g/dL (33.0-37.0); Mean Corpuscular Hgb 29.2 pg (27.0-31.0); Mean Corpuscular Volume 88.3 fL (80.0-94.0); Mean Platelet Volume 9.6 fL (7.4-10.4); Nucleated Red Blood Cells % 0 % (-); Platelet Count 184 10^3/uL (130-400); Red Blood Cell Count 4.52 10^6/uL (4.70-6.10); White Blood Cell Count 9.2 10^3/uL (4.8-10.8)
[2024-08-02 23:57] LABS: ALT (SGPT) 14 U/L (0-50); AST (SGOT) 20 U/L (17-59); Albumin 4.3 g/dl (3.5-5.0); Alkaline Phosphatase 57 U/L (38-126); Blood Urea Nitrogen 29 mg/dl (9-20); Calcium 9.6 mg/dl (8.4-10.2); Carbon Dioxide 23 mmol/L (22-30); Chloride 104 mmol/L (98-107); Estimated Creatinine Clearance 88 ml/min; Glucose 128 mg/dl (70-99); Potassium 3.9 mmol/L (3.5-5.1); Sodium 141 mmol/L (135-145); Total Bilirubin 0.4 mg/dl (0.2-1.3); Total Protein 6.9 g/dl (6.3-8.2); eGFR > 60.00
[2024-08-03 00:01] LABS: Troponin I < 0.012 ng/ml
--- NOTE | 2024-08-03 00:02 | ED.GENMED ---
History of Present Illness
<YESICA Hobson - Last Filed: 08/03/24 02:12>
General
Chief Complaint: Heart Rate Problem
Source: patient
Exam Limitations: none
Time Seen by Provider: 08/02/24 23:20
History of Present Illness
History of Present Illness:
This is a 74 year old male that comes in with c/o increased heart rate. Stae that he went to lay down in bed and he felt that his heart rate was elevated. State that he thinks this is atrial fib/flutter. States that he has had 5 Cardiac ablations
and that the medication when given never works that cardioversion is the only think. States that he feels a little SOB, has a headache and lightheaded. Denies any fever, chills, chest pain, abd pain, nausea, vomiting, diarrhea, urianry burning.
Past History
<YESICA Hobson - Last Filed: 08/03/24 02:12>
Past History
ED Past Medical History: Arrthythmia (Atrial fib), CHF, GERD, HTN, NIDDM and Other (PNA, Sleep apnea, Diverticulitis, Pancreatitis, Glaucoma, )
ED Past Surgical History: Cardiac (Ablation X 5, Stents X 2) and Orthopedic (Left hand surgery, Left shoulder surgery. Left total knee replacement)
Social History
Tobacco: Former smoker
Alcohol: Occasional
Drug: None
Personal:
Living: with family
Employment: Retired
Family History
Family History: Other (Noncontributory)
Review of Systems
<YESICA Hobson - Last Filed: 08/03/24 02:12>
Review of Systems
All Other Systems: ROS reviewed and negative except as documented in HPI and ROS
Constitutional: Reports no symptoms; Denies fever or chills
EENT: Reports no symptoms
Respiratory: Reports trouble breathing; Denies cough
Cardiac: Reports other (Increased heart rate); Denies chest pain
ABD/GI: Reports no symptoms; Denies abdominal pain, nausea, vomiting or diarrhea
: Reports no symptoms; Denies dysuria, frequency or urgency
Musculoskeletal: Reports no symptoms
Skin: Reports no symptoms
Neurological: Reports headache and other (Lightheaded); Denies dizzy
Psychiatric: Reports no symptoms
Phy Exam
<YESICA Hobson - Last Filed: 08/03/24 02:12>
General Physical Exam
General Presentation: well appearing and no apparent distress
General age: appears stated age
General Skin: warm and dry
General Habitus: elderly
General Mental: alert
General Hydration: appears well hydrated
ENT Exam
ENT Exam: TM's normal, pharynx normal and neck supple
Eye Exam
Eye Exam: EOMI
Cardiovascular Exam
Cardiovascular Exam: no edema, normal peripheral pulses and irregularly irregular
Pulmonary Exam
Pulmonary Exam: lungs clear, no respiratory distress, no rales, chest non tender, no crackles, no rhonchi, no wheezing and no cough
Gastrointestinal Exam
Gastrointestinal Exam: normal bowel sounds, non tender, soft, no organomegaly, no pulsatile mass and non distended
Musculoskeletal Exam
Musculoskeletal Exam: full ROM and no edema
Skin Exam
Skin Exam: normal color, warm/dry, no rash and no petechia
Psychiatric Exam
Psychiatric Exam: normal mood/affect
Course
<YESICA Hobson - Last Filed: 08/03/24 02:12>
Orders/Labs/Results
Orders:
Orders
08/02/24 23:12
Electrocardiogram (*1) Urgent
Reason for Study: Chest Pain
Cardiac Monitoring- Treatment ONCE
EKG- Treatment ONCE
IV Insert/Care/Rem.- Treatment PRN
O2 Therapy [RESP] Urgent
Titrate/Wean O2 to maintain O2 sat greater than (%): 90
Special Instructions: Maintain sats >/=90%
Pulse Ox/spot Check [RESP] Urgent
Quantity: 1
Special Instructions: ON ROOM AIR
08/02/24 23:31
Complete Blood Count/With Diff Urgent
Comprehensive Metabolic Panel Urgent
Troponin I Urgent
08/03/24 00:39
Propofol [Diprivan] 20 ml .ROUTE .STK-MED
08/03/24 00:40
Propofol [Diprivan] 20 ml .ROUTE .STK-MED
08/03/24 00:47
EKG [Electrocardiogram (*1)] Urgent
Reason for Study: Atrial Fibrillation
08/03/24 00:48
EKG- Treatment ONCE
08/03/24 01:25
0.9% Sodium Chloride 500 ml [Nss] 500 ml IV BOLUS
Abnormal Lab Results
08/02/24
23:31
RBC 4.52 L 10^6/uL
(4.70-6.10)
Abs Immat Gran (auto) 0.1 H 10^3/uL
(0-0.05)
Absolute Monos (auto) 1.3 H 10^3/uL
(0.1-0.6)
Monocytes % 13.9 H %
(1.7-9.3)
BUN 29 H mg/dl
(9-20)
Glucose 128 H mg/dl
(70-99)
08/02/24 23:31
08/02/24 23:31
Dehydration. Hyperglycemia.
Vital Signs
Initial and Last Documented VS:
Initial Vital Signs
Temp Pulse Resp BP Pulse Ox
98.1 F 139 18 111/80 94
08/02/24 23:12 08/02/24 23:12 08/02/24 23:12 08/02/24 23:12 08/02/24 23:12
Last Documented Vital Signs
Temp Pulse Resp BP Pulse Ox
98 F 73 11 115/62 97
08/03/24 01:25 08/03/24 01:40 08/03/24 01:40 08/03/24 01:40 08/03/24 01:40
<Silvestre Lala, DO - Last Filed: 08/03/24 00:48>
Orders/Labs/Results
Orders:
Orders
08/02/24 23:12
Electrocardiogram (*1) Urgent
Reason for Study: Chest Pain
Cardiac Monitoring- Treatment ONCE
EKG- Treatment ONCE
IV Insert/Care/Rem.- Treatment PRN
O2 Therapy [RESP] Urgent
Titrate/Wean O2 to maintain O2 sat greater than (%): 90
Special Instructions: Maintain sats >/=90%
Pulse Ox/spot Check [RESP] Urgent
Quantity: 1
Special Instructions: ON ROOM AIR
08/02/24 23:31
Complete Blood Count/With Diff Urgent
Comprehensive Metabolic Panel Urgent
Troponin I Urgent
08/03/24 00:39
Propofol [Diprivan] 20 ml .ROUTE .STK-MED
08/03/24 00:40
Propofol [Diprivan] 20 ml .ROUTE .STK-MED
08/03/24 00:47
EKG [Electrocardiogram (*1)] Urgent
Reason for Study: Atrial Fibrillation
08/03/24 00:48
EKG- Treatment ONCE
08/03/24 01:25
0.9% Sodium Chloride 500 ml [Nss] 500 ml IV BOLUS
Abnormal Lab Results
08/02/24
23:31
RBC 4.52 L 10^6/uL
(4.70-6.10)
Abs Immat Gran (auto) 0.1 H 10^3/uL
(0-0.05)
Absolute Monos (auto) 1.3 H 10^3/uL
(0.1-0.6)
Monocytes % 13.9 H %
(1.7-9.3)
BUN 29 H mg/dl
(9-20)
Glucose 128 H mg/dl
(70-99)
08/02/24 23:31
08/02/24 23:31
Vital Signs
Initial and Last Documented VS:
Initial Vital Signs
Temp Pulse Resp BP Pulse Ox
98.1 F 139 18 111/80 94
08/02/24 23:12 08/02/24 23:12 08/02/24 23:12 08/02/24 23:12 08/02/24 23:12
Last Documented Vital Signs
Temp Pulse Resp BP Pulse Ox
98 F 73 11 115/62 97
08/03/24 01:25 08/03/24 01:40 08/03/24 01:40 08/03/24 01:40 08/03/24 01:40
Procedures
<YESICA Hobson - Last Filed: 08/03/24 02:12>
Moderate Sedation
ASA Risk Score: Class I
Chart and allergies reviewed: Yes
Consent for anesthesia obtained: Yes
Time out completed (validating right patient & procedure): Yes
Moderate Sedation Start Time(when first medication is given): 00:43
History of difficult intubation: No
Airway free of obstruction: Yes
Patient has a gag reflex: Yes
Patient is able to open mouth: Yes
Patient has no dentures: Yes (But states that they are not coming out. Only uppers)
Patient has no loose teeth: No
Medication administered by Provider during Moderate Sedation: IV Propofol (mg)
Total dose administered: 50
Time drug administered: 00:43
Moderate Sedation Procedure End Time: 00:55
Comment: shoked 200 Joules first, then 300 joules
<YESICA Hobson - Last Filed: 08/03/24 02:12>
MDM/Problems Addressed
Differential Diagnosis Includes:
atrial flutter
MDM/Problems Addressed:
This is a 74 year old male that comes in with c/o increased heart rate. States that he felt this when he went to lay down in bed tonight. States that he thinks it is atrial fib/flutter. Patient states that the medication never works that
Cardioversion is the only think that helps.
Will check labs. Spoke with Dr. Lala and he will help with Cardioversion.
Repeat ECG after Cardioversion NSR 80, Left axis. 1st degree heart block. NOrmal QRS, Negative for ischemia. Long QT, Checked by Dr. Lala
Patient is wide awake and ready to go home. Patient to follow up with the Drafter (Cad) Electronic. Patient to return with any concerns.
Chronic conditions affecting care: Arrhythmia
Acute Exacerbation and/or Progression of Chronic Illness: Arrhythmia
<YESICA Hobson - Last Filed: 08/03/24 02:12>
*EKG
Interpreted by ED Provider?: Yes
Heart Rate: 139
Rate: tachycardiac
Rhythm: atrial flutter
[place]: left axis deviation
QRS Pattern: normal QRS
Ischemia: no ischemia
*Linecasting Machine Keyboard Operator Interpretation
Rate: tachycardiac
Heart Rate: 143
Rhythm: atrial flutter
*Critical Care Note
Total Time (30-74mins, 75-104mins- exclusive of procedures): Not Applicable
<Silvestre Lala DO - Last Filed: 08/03/24 00:48>
*Critical Care Note
Total Time (30-74mins, 75-104mins- exclusive of procedures): 31
ED Attending Note
<YESICA Hobson - Last Filed: 08/03/24 02:12>
-
Portions of this chart may have been created with voice recognition software.� Occasional wrong word or��sound alike� substitutions may have occurred due to the inherent limitations of voice recognition software.
<Silvestre Lala, DO - Last Filed: 08/03/24 00:48>
ED Attending Note
Patient seen and examined by attending physician: Yes
I performed the substantive portion of visit, reviewed & personally made and approve the management plan that is documented in note by myself or CATRINA.: Yes
ED Attending Note:
Seen with PILE DRIVING SUPERINTENDENT examined independently 74-year-old male PAF on Xarelto multiple ablations presents with tachycardia looks like AF or a flutter he is requesting cardioversion, required 2 shocks to transiently desaturate requiring jaw thrust
Discharge Plan
Departure
Patient Disposition: Home (Routine Discharge)
Date of Disposition: 08/03/24
Time of Disposition: 01:56
Patient with high blood pressure during this ER visit?: No
Condition: Good
Covid-19: Not Applicable
Discharge Problem:
Atrial flutter, Encounter for cardioversion procedure
Instructions: Cardioversion (DC), Atrial Flutter (DC), Moderate Sedation in Adults (DC)
Prescriptions:
No Action
Probiotic 3 billion cell Capsule
3,000 mmu cells PO DAILY
latanoprost 0.005 % Drops
1 drp BOTH EYES HS
loratadine [Claritin] 10 mg Tablet
10 mg PO DAILY
diltiazem HCl 120 mg Capsule,Extended Release 24 Hr
120 mg PO DAILY
aspirin 81 mg Tablet,Delayed Release (Dr/Ec)
81 mg PO DAILY
lisinopril 5 mg tablet
5 mg PO DAILY
furosemide 40 mg Tablet
40 mg PO DAILY PRN (Reason: swelling )
acetaminophen [Tylenol] 325 mg Tablet
500 mg PO Q6H PRN (Reason: pain )
tadalafil 5 mg Tablet
5 mg PO PRN PRN (Reason: ED)
Xarelto 20 mg Tablet
20 mg PO QPM
pantoprazole [Protonix] 40 mg tablet,delayed release (DR/EC)
40 mg PO QPM
sotalol 120 mg tablet
80 mg PO BID
Referrals:
Sebastian Anthony, DO [Family Provider] -
Jairo Vázquez MD [Active] - Follow up in 2-3 days
Activity Restrictions/Additional Instructions:
As discussed, your blood work shows some dehydration. Please increase your water intake to 8-8oz glasses daily. YOu have had a Cardioversion and you are now in normal sinus rhythm. PLEASE CALL YOUR SUPERVISOR ASSEMBLY OFFICE TOMORROW AND SET UP A FOLLOW
UP APPOINTMENT FOR RECHECK. Please no driving or alcohol for the next 24 hours. IF YOU HAVE ANY CHEST PAIN, OR YOU HAVE ANY OTHER CONCERNS PLEASE RETURN TO THE EMERGENCY ROOM.
Interventions
Interventions:
*Risk Screen - Suicide Last Done: 08/02/24 23:12
*General Assessment Last Done: 08/02/24 23:12
*Neglect/Abuse Screening Last Done: 08/02/24 23:12
ED- Fall Risk Assessment Last Done: 08/02/24 23:12
*ED COVID-19 Vaccine History Last Done: 08/02/24 23:12
ED- Cardiac Assessment Last Done: 08/03/24 00:30
ED- Pulmonary Assessment Last Done: 08/03/24 00:30
Discharge Date and Time
Print Language: GERMAN
[2024-08-03] MEDS: NSS 500 IV (00:43)
--- NOTE | 2024-08-03 00:43 | EDRN ---
50 mg IV propofol given by DEWEY Hu at 00:53.
== END 2024-08-03 02:16 | disposition home or self-care (01) ==
LOC: EMR 23:10
PROVIDERS: Student in an Organized Health Care Education/Training Program; EMERGENCY PHYSICIAN Emergency Medicine; FAMILY PHYSICIAN Family Medicine
DX: I48.92 Unspecified atrial flutter (principal); I11.0 Hypertensive heart disease with heart failure; I50.9 Heart failure, unspecified; G47.30 Sleep apnea, unspecified; E11.65 Type 2 diabetes mellitus with hyperglycemia; K21.9 Gastro-esophageal reflux disease without esophagitis; Z87.891 Personal history of nicotine dependence
CPT/HCPCS: 92960; 99152; 99285; 96360; 80053; 84484; 85025; 93005

== ENCOUNTER 2024-08-07 21:53 | Inpatient (IN) | payer MEDICARE, OTHER, SELFPAY ==
[2024-08-07] VITALS (9 sets, daily range): BP systolic 103–162; BP diastolic 58–99; BMI 32.4; BMI 33.6
[2024-08-07 18:37] LABS: % Basophils 0.2 % (0-2); % Immature Granulocytes 0.4 % (0-0.5); % Lymphocytes 7.8 % (20.5-51.1); % Monocytes 9.7 % (1.7-9.3); % Neutrophils 81.9 % (42.2-75.2); Absolute Immature Granulocytes 0.1 10^3/uL (0-0.05); Absolute Lymphocytes 0.9 10^3/uL (1.2-3.4); Absolute Monocytes 1.2 10^3/uL (0.1-0.6); Absolute Neutrophils 9.8 10^3/uL (1.4-6.5); Hematocrit 39.6 % (39.0-52.0); Hemoglobin 13.4 g/dL (13.0-18.0); Mean Corp Hgb Conc. 33.8 g/dL (33.0-37.0); Mean Corpuscular Hgb 29.5 pg (27.0-31.0); Mean Platelet Volume 9.2 fL (7.4-10.4); Nucleated Red Blood Cells % 0 % (-); Platelet Count 197 10^3/uL (130-400); Red Blood Cell Count 4.55 10^6/uL (4.70-6.10); Red Cell Dist. Width 13.5 % (11.5-14.5); White Blood Cell Count 11.9 10^3/uL (4.8-10.8)
--- NOTE | 2024-08-07 18:49 | ED.GENMED ---
History of Present Illness
General
Chief Complaint: Heart Rate Problem
Time Seen by Provider: 08/07/24 18:30
History of Present Illness
History of Present Illness:
Patient is a 74-year-old male with history of A-fib on Eliquis, diltiazem sotalol, CAD, hypertension, hyperlipidemia, recent pacemaker placement in May followed by Dr. Vázquez presenting to the emergency department palpitations. Patient
states at 6 PM he had sudden onset palpitations. He just went into A-fib a few days ago and was cardioverted. He has had 5 ablations. His most recent ablation was in January at [facility]. He is extremely frustrated as nothing is working he is
compliant with all his medications. Denies any fevers chills URI symptoms chest pain shortness of breath. No nausea vomiting. No urinary symptoms. He is unclear of what are his triggers.
Past History
Past History
ED Past Medical History: Arrthythmia (Atrial fib), CHF, GERD, HTN, NIDDM and Other (PNA, Sleep apnea, Diverticulitis, Pancreatitis, Glaucoma, )
ED Past Surgical History: Cardiac (Ablation X 5, Stents X 2) and Orthopedic (Left hand surgery, Left shoulder surgery. Left total knee replacement)
Social History
Tobacco: Former smoker
Alcohol: Occasional
Drug: None
Personal:
Living: with family
Employment: Retired
Family History
Family History: Other (Noncontributory)
Phy Exam
Physical Exam
Physical Exam:
GENERAL: in no acute distress
HEENT: normocephalic, extraocular movements intact, moist oral mucosa
NECK: normal inspection
RESPIRATORY: no respiratory distress, clear to auscultation bilaterally
CARDIOVASCULAR: regular rhythm and tachycardic rate in the 150s
ABDOMEN/: soft, non-distended, non-tender to palpation, no rebound or guarding
EXTREMITIES: non-tender, no edema/swelling
NEUROLOGIC: awake and alert, moves all extremities
SKIN: warm
Course
Orders/Labs/Results
Orders:
Orders
08/07/24 18:21
Electrocardiogram (*1) Urgent
Reason for Study: Palpitations
EKG- Treatment ONCE
08/07/24 18:28
Complete Blood Count/With Diff Urgent
Comprehensive Metabolic Panel Urgent
Magnesium Urgent
Comment: ADD ON
08/07/24 18:46
Diltiazem HCl [Cardizem] 15 mg IV NOW STA
08/07/24 18:49
Add On- LAB Urgent
Tests Added?: magnesium
08/07/24 18:58
EKG [Electrocardiogram (*1)] Urgent
Reason for Study: Tachycardia
EKG- Treatment ONCE
08/07/24 19:26
Acetaminophen [Tylenol] 1,000 mg .ROUTE .STK-MED ONE
08/07/24 19:27
Acetaminophen [Tylenol] 1,000 mg PO NOW STA
08/07/24 19:48
NT-proBNP Urgent
Troponin I Urgent
08/07/24 19:56
Diltiazem 125 mg/125 ml Nss [Cardizem] 125 mg in 125 ml IV NOW
Initial dose in mg/hr, then titrate:: 5
Titrate to keep:: Heart rate 80-100 bpm
Titrate by mg/hr:: 5 mg/hr
Frequency of titrations (minutes):: 15
Maximum dose in mg/hr:: 15
08/07/24 20:02
Diltiazem HCl [Cardizem] 15 mg IV NOW STA
08/08/24 06:00
Electrocardiogram (*1) IN AM
Reason for Study: Bradycardia / Tachycardia
Troponin I IN AM
Abnormal Lab Results
08/07/24
18:28
WBC 11.9 H 10^3/uL
(4.8-10.8)
RBC 4.55 L 10^6/uL
(4.70-6.10)
Abs Immat Gran (auto) 0.1 H 10^3/uL
(0-0.05)
Absolute Neuts (auto) 9.8 H 10^3/uL
(1.4-6.5)
Absolute Lymphs (auto) 0.9 L 10^3/uL
(1.2-3.4)
Absolute Monos (auto) 1.2 H 10^3/uL
(0.1-0.6)
Neutrophils % 81.9 H %
(42.2-75.2)
Lymphocytes % 7.8 L %
(20.5-51.1)
Monocytes % 9.7 H %
(1.7-9.3)
BUN 28 H mg/dl
(9-20)
Glucose 132 H mg/dl
(70-99)
08/07/24 18:28
08/07/24 18:28
Vital Signs
Initial and Last Documented VS:
Initial Vital Signs
Temp Pulse Resp BP Pulse Ox
98.3 F 149 22 162/99 99
08/07/24 18:22 08/07/24 18:22 08/07/24 18:22 08/07/24 18:22 08/07/24 18:22
Last Documented Vital Signs
Temp Pulse Resp BP Pulse Ox
98.3 F 140 16 124/67 98
08/07/24 18:22 08/07/24 19:30 08/07/24 19:30 08/07/24 19:10 08/07/24 19:30
MDM/Problems Addressed
Differential Diagnosis Includes:
Patient is a 74-year-old male with history of A-fib on Eliquis diltiazem and sotalol with multiple ablations and cardioversions presenting to the emergency department with palpitations. EKG obtained per my interpretation patient does show atrial
flutter with a 2-1 block. Exam is otherwise reassuring. Will check blood work to check for his electrolytes. Will give diltiazem bolus. After shared decision patient does not want to be cardioverted which I think is appropriate given that he was
just cardioverted a few days ago.
*Critical Care Note
Total Time (30-74mins, 75-104mins- exclusive of procedures): Not Applicable
Update Note
Update Note:
I did discuss with cardiology preemptively to discuss neck steps in case the diltiazem does not work like patient states it has not in the past. Cardiology will actually come in to evaluate patient.
I went to go update patient. He does receive the diltiazem his heart rate has actually improved in the low 100s. Will hold off on drip at this time.
On reevaluations and heart rate has increased to the 140s to the 150s. Cardiology at bedside who evaluated patient and looked at EKG. Cardiology states EKG is consistent with atrial tachycardia likely from a scar from his multiple ablations.
Recommending diltiazem drip. Will give bolus prior to the drip initiation. They did add on troponin and BNP which are pending at this time. Discussed with hospitalist who accepted patient to their service.
ED Attending Note
-
Portions of this chart may have been created with voice recognition software.� Occasional wrong word or��sound alike� substitutions may have occurred due to the inherent limitations of voice recognition software.
Discharge Plan
Departure
Patient Disposition: Admit
Date of Disposition: 08/07/24
Time of Disposition: 20:04
Presentation/result/management discussed w/ accepting MD/DO: Hospitalist
Discharge Problem:
Atrial tachycardia
Prescriptions:
No Action
Probiotic 3 billion cell Capsule
3,000 mmu cells PO DAILY
latanoprost 0.005 % Drops
1 drp BOTH EYES HS
loratadine [Claritin] 10 mg Tablet
10 mg PO DAILY
diltiazem HCl 120 mg Capsule,Extended Release 24 Hr
120 mg PO DAILY PRN (Reason: Heart Disease/Condition)
aspirin 81 mg Tablet,Delayed Release (Dr/Ec)
81 mg PO DAILY
lisinopril 5 mg tablet
5 mg PO DAILY
furosemide 40 mg Tablet
40 mg PO DAILY PRN (Reason: swelling )
acetaminophen [Tylenol] 325 mg Tablet
500 mg PO Q6H PRN (Reason: pain )
tadalafil 5 mg Tablet
5 mg PO PRN PRN (Reason: ED)
Xarelto 20 mg Tablet
20 mg PO QPM
pantoprazole [Protonix] 40 mg tablet,delayed release (DR/EC)
40 mg PO QPM
sotalol 120 mg tablet
80 mg PO BID
Interventions
Interventions:
*Risk Screen - Suicide Last Done: 08/07/24 18:22
*General Assessment Last Done: 08/07/24 18:22
*Neglect/Abuse Screening Last Done: 08/07/24 18:22
ED- Fall Risk Assessment Last Done: 08/07/24 18:35
*ED COVID-19 Vaccine History Last Done: 08/07/24 18:22
ED- Cardiac Assessment Last Done: 08/07/24 19:02
ED- Pulmonary Assessment Last Done: 08/07/24 19:02
Discharge Date and Time
Print Language: JAMAICAN
[2024-08-07 18:50] LABS: ALT (SGPT) 16 U/L (0-50); AST (SGOT) 21 U/L (17-59); Albumin 4.6 g/dl (3.5-5.0); Alkaline Phosphatase 66 U/L (38-126); Blood Urea Nitrogen 28 mg/dl (9-20); Calcium 9.7 mg/dl (8.4-10.2); Carbon Dioxide 22 mmol/L (22-30); Chloride 105 mmol/L (98-107); Estimated Creatinine Clearance 95 ml/min; Glucose 132 mg/dl (70-99); Sodium 141 mmol/L (135-145); Total Bilirubin 0.6 mg/dl (0.2-1.3); Total Protein 7.3 g/dl (6.3-8.2); eGFR > 60.00
[2024-08-07] MEDS: CARDIZEM 15 MG IV ×2 (18:51→20:05)
[2024-08-07 19:12] LABS: Magnesium 2.1 mg/dl (1.6-2.3)
--- NOTE | 2024-08-07 19:23 | CON.CAR ---
Consultation
Consultation Request
Date/Time Consultation Requested: 08/07/2024 at 1900
Date/Time Consultation Performed: 08/07/2024 at 2000
Requesting Provider: Dr. Jennifer Schaeffer
Performing Provider: Hernandez Acevedo MD
Reason for Consultation: Recurrent atrial arrhythmia
Medical History
-
Chief Complaint: Recurrent atrial arrhythmia
History of Present Illness:
74-year-old man with complex arrhythmia history of PAF, atypical flutter, with non-ST segment elevation CA April 2024 treated with drug-eluting stents to diagonal and OM and numerous PVI/ablation as listed below, most recent in January of this year.
He got 2 drug-eluting stents, to an obtuse marginal and a diagonal in April for troponin of roughly 5. Currently managed with sotalol, often has trouble complying with medication recommendations, will not treat sleep apnea, etc. Currently on
prednisone. 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 He has not had recent epistaxis since switching Xarelto and Plavix to Xarelto and aspirin following PCI in April. He had explant of Linq and implant of pacemaker in May of this
year, and possible anticipation of AV colin ablation for atrial arrhythmia producing rapid ventricular response and tachycardia with shortness of breath, chest discomfort, dizziness etc. Sotalol had been increased but caused fatigue. He is
currently on sotalol 80 twice daily and diltiazem ER 120 mg daily. He had a cardioversion on August 02 and then this evening went back into atrial tachycardia with shortness of breath dizziness and headache. In the emergency department it seems
he has atrial tachycardia with one-to-one conduction at a rate of 150, after bolus heart rate dropped to 100 but now is 140 again. At this point, there are few if any alternative antiarrhythmic drugs.
Past Medical History
Past Medical History: Arrhythmias (PVI 2017, 2021, December 2022, June 2023, January [address] [facility], permanent pacemaker 2023, Linq explanted), CAD (Non-ST segment elevation CA in April 2024, Xience 2.5 x 18 mm stent to D1, Xience 2.25 x 15 mm
stent to OM1, 50% mid LAD, small D2 with 80% stenosis nondominant RCA), CHF (History of HFpEF, both acute and chronic), HTN, Hypercholesterolemia, Valvular Disease (Mild mitral stenosis) and Other (Osteoarthritis, degenerative disc disease with
epidural injections, sleep apnea, not compliant, obesity, pancreatitis most recently developed recurrent arrhythmia August 02 and presented to the ER where he had a cardioversion. Now with recurrent tachycardia presented again to ER. Initial
rhythm l)
Past Surgical History: Orthopedic (left total knee arthroplasty, left shoulder surgery, left hand)
Social History
Tobacco: Former Smoker
Alcohol: Former (Probably heavy in past)
Drug: None
Personal: ( is chronically ill, not in hospice)
Living: With Family
Employment: Retired
Family History
Family History: Reviewed & Not Pertinent
Allergies / Home Medications
Allergy/AdvReac Type Severity Reaction Status Date / Time
amiodarone Allergy sleeplessness, Verified 08/07/24 18:20
acid reflux
azithromycin Allergy Loss of Verified 08/07/24 18:20
smell,
loss of
taste,
metal
taste in
mouth
dofetilide [From Tikosyn] Allergy GERD Verified 08/07/24 18:20
Iodinated Contrast Media Allergy Itching Verified 08/07/24 18:20
[Iodinated Contrast- Oral
and IV Dye]
iodine Allergy Itching Verified 08/07/24 18:20
�Medication �Instructions �Recorded �Confirmed �Type
lactobacillus combination no.4 3 3,000 mmu cells PO DAILY Supplement 12/26/22 08/07/24 History
billion cell capsule (Probiotic)
latanoprost 0.005 % eye drops 1 drp BOTH EYES HS Eye Condition 04/17/23 08/07/24 History
loratadine 10 mg tablet (Claritin) 10 mg PO DAILY Allergies 04/18/23 08/07/24 History
diltiazem HCl 120 mg capsule,24 120 mg PO DAILY PRN Heart 06/09/23 08/07/24 History
hr,extended release Disease/Condition
aspirin 81 mg tablet,delayed 81 mg PO DAILY Blood Clot 10/03/23 08/07/24 History
release Prevention/Tx
lisinopril 5 mg tablet 5 mg PO DAILY Blood Pressure 10/03/23 08/07/24 History
acetaminophen 325 mg tablet 500 mg PO Q6H PRN pain 04/08/24 08/02/24 History
(Tylenol)
furosemide 40 mg tablet 40 mg PO DAILY PRN swelling 04/08/24 08/07/24 History
tadalafil 5 mg tablet 5 mg PO PRN PRN ED 04/08/24 08/07/24 History
pantoprazole 40 mg tablet,delayed 40 mg PO QPM GERD 06/02/24 08/07/24 History
release (Protonix)
rivaroxaban 20 mg tablet (Xarelto) 20 mg PO QPM 06/02/24 08/07/24 History
sotalol 120 mg tablet 80 mg PO BID 08/02/24 08/07/24 History
Review of Systems
-
All other systems: Negative unless noted
Physical Exam
Vital Signs
Temp Pulse Resp BP Pulse Ox
36.8 C 101 17 162/99 98
08/07/24 18:22 08/07/24 19:00 08/07/24 19:00 08/07/24 18:51 08/07/24 19:02
Lab Results
08/07/24 18:28
08/07/24 18:28
Physical Exam
General: No Apparent Distress
HEENT: Normocephalic
Respiratory: Clear
Cardiac: Irregular Rhythm (Tachycardic)
GI: Soft and Non Tender
Musculoskeletal: No Edema
Skin: Warm and Dry
Neuro: AO x 3
Psych: Other (Irritable)
Impression / Plan
-
Impression:
Recurrent atrial tachycardia following cardioversion on August 02
NSTEMI peak 5.07 April 2024
CAD s/p 2.5 mm Xience to prox Diag-1 and 2.25 mm Xience to prox OM-1 04/09/24
Chronic HFpEF
Recurrent symptomatic paroxysmal atypical atrial flutter with RVR
Recurrent paroxysmal atrial fibrillation with prior PVI 2017, 04/2022, 12/26/22, 06/10/23, 01/29/24 [facility]
chronic sotalol therapy
OAC recently discontinued 04/2024 as with loop recorder in place
HTN
ZARIA not compliant with CPAP
s/p Linq 08/2022
Moderate MS with mean gradient 9 mmHg by echo 04/09/24
Obesity
OA s/p L TKR 04/30/23
Cardiac catheterization 04/09/2024: Luminal irregularities of left main, medium caliber D1 with hazy 90% proximal stenosis, 50-60% mid LAD IFR negative, small D2 with 80% stenosis, medium to large OM1 with 90% stenosis, small nondominant RCA, 2.5 x 18
mm Xience saray point stent to D1, 2.25 x 15 mm Xience saray point stent to OM1
GARCIA 06/06/23: EF 55%, left atrium dilated, mild mitral stenosis, mild to moderate MR, aortic sclerosis with trace AR, trace TR
Echo 04/09/24: EF 55-60%, stage III diastolic dysfunction, normal RV size and function, mod MR, mod MS with mean gradient 9 mmHg, mild aortic regurgitation
Plan:
He presents with recurrent atrial tachycardia and a rapid ventricular response. He now has a pacemaker in place. He he remains on sotalol but there are no good alternative antiarrhythmic agents and he is breaking through sotalol.
At this point, options are better rate control, with up titration of diltiazem and consideration of beta-blockers with or without sotalol. He has had fatigue on metoprolol, nebivolol could be considered. The alternative would be AV colin ablation
and reprogramming of pacemaker to DDIR or DDD are with tight control of upper rate limit. He is very reluctant to consider this related to pacemaker dependence thereafter.
For the meantime, would continue sotalol and switch to IV diltiazem drip, we will potentially titrate back to oral diltiazem with or without beta-jessica, consider digoxin, etc.
Discussed at some length with patient and son.
Data Reviewed
-
EKG: Tracing Personally Visualized and interpreted (ECG #1 probable atrial tachycardia with one-to-one conduction, rate 148 bpm, nonspecific ST and T changes ECG #2 atypical atrial flutter with intermittent aberrant ventricular conduction and
variable AV block, heart rate now 104 bpm)
Radiology: Image Personally Visualized and interpreted (Last chest x-ray May 2024, blunting of costophrenic angles, pacemaker in place)
Medical Tests (Nuc Med, Echo etc): Report Reviewed by me
Labs: Labs Reviewed by me (White count 11.9, hemoglobin 13.4, platelets 197, potassium 4.0, BUN and creatinine 28 and 0.9)
Old Records: Reviewed
[2024-08-07] MEDS: TYLENOL 1000 MG PO (19:27)
[2024-08-07] MEDS: CARDIZEM 125 IV (20:06)
[2024-08-07 20:17] LABS: NT-proBNP 1100 pg/ml; Troponin I < 0.012 ng/ml
--- NOTE | 2024-08-07 20:30 | HPS.HSE ---
Family Physician
-
Family Physician:
Chief Complaint
-
SOB / Dizziness
History of Present Illness
Patient is a 74y M with PMH significant for SVT, ASCVD, hypertension and obesity who presents to ED complaining of SOB, dizziness and headache this evening. History is obtained entirely from review of medical record / Cardiology and ED notes as
patient is not willing to review history with this provider.
Patient has long history of SVT / PAF and atypical A-Flutter s/p several ablations and cardioversions in the past - most recently with cardioversion on 08/02/24.
This evening he experienced recurrent dizziness, headache and SOB consistent with his prior episodes of SVT / arrhythmia.
He presented to the ED where he is noted to be in SVT with rapid ventricular rates. Minimal / temporary improvement after diltiazem bolus.
He is currently on diltiazem gtt with heart rates around 100 bpm.
Medical History
Past Medical History
Past Medical History: Reports Other
Additional Past Medical History:
SVT
Paroxysmal Atrial Fibrillation
Atypical Atrial Flutter
ASCVD
Chronic HFpEF
Hypertension
DJD / OA
Obesity
Past Surgical History: Reports Other
Additional Past Surgical History:
PPM Placement (06/02/24)
PTCA with Stent (April 2024)
PVI Ablations x multiple
Left TKA
Left Shoulder Surgery
Left Hand Surgery
Social History
Unable to obtain full social history at this time due to: Other (Unable to confirm with patient.)
Family History
Family History: Other (Unable to confirm with patient.)
Allergies / Home Medications
Allergies reflects when Allergies were last updated in [facility].
Home Medications with original date entered in [facility]
Allergy/Medication List:
Allergies
Allergy/AdvReac Type Severity Reaction Status Date / Time
amiodarone Allergy sleeplessness, Verified 08/07/24 18:20
acid reflux
azithromycin Allergy Loss of Verified 08/07/24 18:20
smell,
loss of
taste,
metal
taste in
mouth
dofetilide [From Tikosyn] Allergy GERD Verified 08/07/24 18:20
Iodinated Contrast Media Allergy Itching Verified 08/07/24 18:20
[Iodinated Contrast- Oral
and IV Dye]
iodine Allergy Itching Verified 08/07/24 18:20
Home Medications
lactobacillus combination no.4 3 billion cell capsule (Probiotic) 3,000 mmu cells PO DAILY Supplement 12/26/22
latanoprost 0.005 % eye drops 1 drp BOTH EYES HS Eye Condition 04/17/23
loratadine 10 mg tablet (Claritin) 10 mg PO DAILY Allergies 04/18/23
diltiazem HCl 120 mg capsule,24 hr,extended release 120 mg PO DAILY PRN Heart Disease/Condition 06/09/23
aspirin 81 mg tablet,delayed release 81 mg PO DAILY Blood Clot Prevention/Tx 10/03/23
lisinopril 5 mg tablet 5 mg PO DAILY Blood Pressure 10/03/23
acetaminophen 325 mg tablet (Tylenol) 500 mg PO Q6H PRN pain 04/08/24
furosemide 40 mg tablet 40 mg PO DAILY PRN swelling 04/08/24
tadalafil 5 mg tablet 5 mg PO PRN PRN ED 04/08/24
pantoprazole 40 mg tablet,delayed release (Protonix) 40 mg PO QPM GERD 06/02/24
rivaroxaban 20 mg tablet (Xarelto) 20 mg PO QPM 06/02/24
sotalol 120 mg tablet 80 mg PO BID 08/02/24
Review of Systems
-
History Source: Patient (Limited ROS due to patient not amenable to interview.)
A 12 point ROS was completed and negative except as noted: No
Psych: Reports Other (Frustrated /Stressed)
Physical Exam
Vital Signs
Vital Signs
Temp Pulse Resp BP Pulse Ox
98.3 F 97 19 123/58 97
08/07/24 18:22 08/07/24 20:17 08/07/24 20:17 08/07/24 20:17 08/07/24 20:17
Physical Exam
General: Other (74y M somewhat anxious / agitated. Otherwise does not appear in acute distress. Patient declined further interview or exam.)
Laboratory Results
-
08/07/24 18:28
08/07/24 18:28
Laboratory Results
Total Bilirubin 0.6 mg/dl (0.2-1.3) 08/07/24 18:28
AST 21 U/L (17-59) 08/07/24 18:28
ALT 16 U/L (0-50) 08/07/24 18:28
Alkaline Phosphatase 66 U/L (38-126) 08/07/24 18:28
Troponin I < 0.012 ng/ml 08/07/24 19:48
Impression/Plan
-
A/P: Patient is a 74y M with PMH significant for SVT / PAF / A-Flutter, ASCVD and hypertension who presented to ED complaining of dizziness, dyspnea and headache this evening.
SVT - Recurrent
- Admit to IVU for further evaluation and treatment.
- Rate control seems improved on diltiazem infusion - continue and titrate as needed.
- Cardiology notes appreciated.
- Nothing additional to add based on limited history and exam as noted above.
ASCVD
Benign Hypertension
Chronic HFpEF
- Continue usual outpatient medications.
- Follow I/Os, daily weights, etc.
DVT Prophylaxis: On Xarelto
Code Status: Full Code based on most recent documentation.
--- NOTE | 2024-08-07 23:18 | PTCARENOTE ---
Pt admitted into 2246- ambulating in the room as a self. received from the INFORMATION RESOURCES DIRECTOR on 5ml/hr Dilt gtt. handoff monitor completed on work list. SR with first degree on the monitor. pt states he occasionally feels palpations and PVCs are noted on the
monitor at the same time- he states this happens more often when he is laying down to sleep. 2L NC provided pt states 'it isn't an oxygen problem- I'm not wearing this'. 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 verbalizes that he
is overwhelmed that he keeps having the same issue 'and they can't figure this out' emotional support provided. CHF booklet provided. call kemp within reach.
[2024-08-07] MEDS: XANAX 0.25 MG PO (23:58)
--- NOTE | 2024-08-08 00:01 | PTCARENOTE ---
pt very sensitive to palpations states it immediately wakes him up and he gets a headache - PLANTING MACHINE OPERATOR Marisa Chahal contacted X1 order for Xanax given
[2024-08-08] MEDS: XALATAN OPHTHALMIC SOLUTION BOTH EYES (00:23)
[2024-08-08 04:57] VITALS: BP 101/61
[2024-08-08 05:23] LABS: Hematocrit 37.7 % (39.0-52.0); Hemoglobin 12.6 g/dL (13.0-18.0); Mean Corp Hgb Conc. 33.4 g/dL (33.0-37.0); Mean Corpuscular Hgb 30.7 pg (27.0-31.0); Mean Platelet Volume 9.7 fL (7.4-10.4); Platelet Count 183 10^3/uL (130-400); Red Cell Dist. Width 13.5 % (11.5-14.5); White Blood Cell Count 13.1 10^3/uL (4.8-10.8)
[2024-08-08] MEDS: XANAX 0.25 MG PO ×2 (05:36→22:14)
[2024-08-08 05:49] LABS: Blood Urea Nitrogen 29 mg/dl (9-20); Calcium 9.1 mg/dl (8.4-10.2); Carbon Dioxide 23 mmol/L (22-30); Chloride 106 mmol/L (98-107); Estimated Creatinine Clearance 111 ml/min; Glucose 121 mg/dl (70-99); HDL Cholesterol 56 mg/dl; LDL Cholesterol, Calculated 153 mg/dl; Potassium 3.9 mmol/L (3.5-5.1); Sodium 140 mmol/L (135-145); Total Cholesterol 223 mg/dl (50-199); Triglyceride 73 mg/dl (10-149); Very Low Density Lipoprotein 14 mg/dl (0-30); eGFR > 60.00
[2024-08-08 05:58] LABS: Troponin I < 0.012 ng/ml
[2024-08-08 06:00] VITALS: BMI 33.4
[2024-08-08 06:18] LABS: TSH Reflex To Free T4 2.47 uIU/ml (0.47-4.68)
[2024-08-08 07:14] VITALS: BP 112/61
[2024-08-08] MEDS: ASPIR LOW (ENTERIC COATED) 81 MG PO (07:58)
[2024-08-08] MEDS: ZESTRIL 5 MG PO (07:58)
[2024-08-08] MEDS: CLARITIN 10 MG PO (07:58)
[2024-08-08] MEDS: BETAPACE 80 MG PO ×2 (07:58→19:59)
--- NOTE | 2024-08-08 08:39 | PTCARENOTE ---
Assumed care of pt from night RN. Pt received awake and alert, Ox3. VSS, CM shows AF 100's, POX 95% on RA. Cardizem drip infusing through RAC at 5 mg /hr. Pt denies any pain or discomfort at present time. Ambulating in room independently.
--- NOTE | 2024-08-08 09:22 | W.PN.HOSP.TC ---
Today's Communication/Plan
-
Continue current care
Assessment / Plan
Assessment / Plan
Gen-AAOx3, NAD
HEENT-NC, AT, anicteric, clear oral mm
Neck-supple
CV-reg, no M, +S1/S2
Lungs-clear B/L
Abd-soft, NT, ND
Ext-no edema
Musculoskeletal-no cyanosis, clubbing
Skin-warm and dry
Neuro-grossly non-focal
Psych-calm, cooperative
Recurrent SVT -now rate controlled. Cardiology to see today. TSH normal. Dr. Acevedo recommends starting Nebivolol.
Paroxysmal atrial fibrillation -continue Xarelto.
CAD
chronic heart failure preserved EF
Essential hypertension -stable.
PPM
Obstructive sleep apnea -likely contributing to recurrence of SVT and atrial fibrillation. Patient refusing to discuss ZARIA as he believes that it is not as bad as everyone states. Not compliant with CPAP at home.
Obesity due to excess calories
Full code
Anticipated Discharge: 24 - 48 hours
Subjective/Interval History
-
Date of Service: August 08, 2024
Patient seen and examined. Hostile and angry, refusing to answer all questions. Denies palpitations.
Objective Data
-
Labs:
Laboratory Results
08/08/24
05:09
WBC 13.1 H
Hgb 12.6 L
Hct 37.7 L
Plt Count 183
Sodium 140
Potassium 3.9
Chloride 106
Carbon Dioxide 23
BUN 29 H
Creatinine 0.6 L
Glucose 121 H
Calcium 9.1
Vital Signs:
Vital Signs
Temp Pulse Resp BP Pulse Ox
97.7 F 101 20 112/61 95
08/08/24 07:12 08/08/24 07:58 08/08/24 07:12 08/08/24 07:58 08/08/24 08:04
I&O
08/07/24 08/08/24 08/09/24
07:59 06:59 06:59
Output Total
Balance
Review of Systems
-
History Source: Patient
All other systems: Reviewed and negative
[2024-08-08 11:37] LABS: Troponin I < 0.012 ng/ml
--- NOTE | 2024-08-08 11:46 | W.PN.CARDCBS ---
Addendum entered and electronically signed by Hernandez Acevedo MD 08/08/24 12:16:
Hold lisinopril until we assess BP on nebivolol and higher dose diltiazem
Original Note:
Today's Communication / Plan
-
Change IV diltiazem to diltiazem ER 120 mg twice daily
Start nebivolol 5 mg a day, he is now agreeable
Continue sotalol for now
Reprogram pacemaker
Will have EP review tomorrow, possibly schedule AV colin ablation
Impression / Plan
-
Impression:
Recurrent atrial tachycardia following cardioversion on August 02
NSTEMI peak 5.07 April 2024
CAD s/p 2.5 mm Xience to prox Diag-1 and 2.25 mm Xience to prox OM-1 04/09/24
Chronic HFpEF
Recurrent symptomatic paroxysmal atypical atrial flutter with RVR
Recurrent paroxysmal atrial fibrillation with prior PVI 2017, 04/2022, 12/26/22, 06/10/23, 01/29/[address] [facility]
chronic sotalol therapy
OAC recently discontinued 04/2024 as with loop recorder in place
HTN
ZARIA not compliant with CPAP
s/p Linq 08/2022
Moderate MS with mean gradient 9 mmHg by echo 04/09/24
Obesity
OA s/p L TKR 04/30/23
Cardiac catheterization 04/09/2024: Luminal irregularities of left main, medium caliber D1 with hazy 90% proximal stenosis, 50-60% mid LAD IFR negative, small D2 with 80% stenosis, medium to large OM1 with 90% stenosis, small nondominant RCA, 2.5 x 18
mm Xience saray point stent to D1, 2.25 x 15 mm Xience saray point stent to OM1
GARCIA 06/06/23: EF 55%, left atrium dilated, mild mitral stenosis, mild to moderate MR, aortic sclerosis with trace AR, trace TR
Echo 04/09/24: EF 55-60%, stage III diastolic dysfunction, normal RV size and function, mod MR, mod MS with mean gradient 9 mmHg, mild aortic regurgitation
Plan:
He remains in atrial tachycardia, but ventricular response is now controlled and symptoms have predominantly resolved.
As usual, he refused some of his medications but after discussion is willing to proceed with recommended plan of doubling oral diltiazem, adding nebivolol, continuing sotalol for now.
He may need reprogramming of pacemaker given atrial tachycardia, possibly lowering upper rate limit, changing to DDIR, etc. will ask EP to review.
If EP is in agreement, patient can be scheduled for AV colin ablation.
Progress Note - Grades 1 6 Tutor
Subjective
Date of Service: August 08, 2024:
No complaints, he says he wants an AV colin ablation now
PMH/PSH/SH/FH: Reviewed
Allergies, outpatient meds: Reviewed
Current meds: IV diltiazem, aspirin 81 mg a day, Xalatan ophthalmic, lisinopril 5 mg a day, Claritin 10 mg a day, pantoprazole 40 mg a day, Xarelto 20 mg a day, sotalol 80 mg twice daily, nebivolol 5 mg daily refused by patient
112/61, pulse 101, respiratory rate 20, afebrile, head neck exam unremarkable, lungs are clear, soft systolic murmur JVD okay abdomen obese extremities without much edema neuro nonfocal musculoskeletal intact
White count 13.1, hemoglobin 12.6, potassium 3.9, BUN/creatinine 29 and 0.6, troponin undetectable glucose 121, proBNP 1100, in June had been 3320
EKG today atrial tachycardia with variable conduction, 93 bpm
Telemetry: At rest, often atrial tach rate 150 with 2 1 conduction with heart rate of 76 bpm
Objective
Labs:
08/08/24 05:09
08/08/24 05:09
Labs
Hgb 12.6 g/dL (13.0-18.0) L 08/08/24 05:09
Hct 37.7 % (39.0-52.0) L 08/08/24 05:09
Plt Count 183 10^3/uL (130-400) 08/08/24 05:09
Sodium 140 mmol/L (135-145) 08/08/24 05:09
Potassium 3.9 mmol/L (3.5-5.1) 08/08/24 05:09
BUN 29 mg/dl (9-20) H 08/08/24 05:09
Creatinine 0.6 mg/dL (0.7-1.3) L 08/08/24 05:09
Glucose 121 mg/dl (70-99) H 08/08/24 05:09
Troponins
08/07/24 08/07/24 08/08/24
19:48 22:31 05:09
Troponin I < 0.012 Cancelled < 0.012
08/08/24
11:04
Troponin I < 0.012
Vital Signs and I&O:
Vital Signs
Temp Pulse Resp BP Pulse Ox
36.5 C 101 20 112/61 95
08/08/24 07:12 08/08/24 07:58 08/08/24 07:12 08/08/24 07:58 08/08/24 08:04
Vital Signs
Temp Pulse Resp BP Pulse Ox
36.5 C 101 20 112/61 95
08/08/24 07:12 08/08/24 07:58 08/08/24 07:12 08/08/24 07:58 08/08/24 08:04
Intake & Output
08/06/24 08/07/24 08/08/24 08/09/24
08:59 08:59 07:59 07:59
Output Total
Balance
Physical Exam
Physical Exam
See above
[2024-08-08 12:01] VITALS: BP 115/66
[2024-08-08] MEDS: BYSTOLIC 5 MG PO (12:31)
[2024-08-08] MEDS: CARDIZEM CD 120 MG PO ×2 (12:31→19:59)
--- NOTE | 2024-08-08 15:46 | PTCARENOTE ---
Fadia villa D/C'd as ordered.
[2024-08-08 17:02] VITALS: BP 116/61
[2024-08-08] MEDS: PROTONIX 40 MG PO (17:43)
[2024-08-08] MEDS: XARELTO 20 MG PO (17:43)
--- NOTE | 2024-08-08 18:44 | CON.MD ---
Consultation - Medical
-
74 yr old M w/ PMH of CAD, CHF w/ preserved EF, paroxysmal Afib & recurrent SVT, as well as ZARIA. Psychiatry consulted due to pt expressing anxiety and wanting to speak with a psychiatrist, in the context of having multiple significant psychosocial
stressors.
Pt does admit to feeling anxious (though generally calls this 'stressed') - as before, he is adamantly against medication to help with managing this, however he does appear to recognize that he is having difficulty managing his significant stressors
and that this is affecting his care (irritable with physicians, at times resistant to medication/procedure recommendations). Pt with multiple hospitalizations due to Afib, reports multiple prior ablations and recent implant of PM - describes feeling
quite out of control to manage his symptoms and worrying that next episode may be fatal. 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 was previously on hospice in early 2023, but then
improved and was taken off hospice - few months ago he took her home to care for her there rather than in a NH. His adult son is also living with them and is not working due to mental health & physical issues, so pt has been financially supporting
him (as well as himself and his ). Pt is living on social security, the monthly amount of which is just enough to cover rent. Has been using savings to cover costs and it seems that this is running low now, so having significant financial stress
as to what they will do once savings are out. Son is appealing for disability benefits, however unknown when this will be done and what outcome will be.
Pt is able to acknowledge that all of this is sitting very heavily on him and has been affecting his mood and interactions with others. He acknowledges that at baseline he can be disagreeable, and it seems that he now sees that this has been
affecting his care. Concurrently however, he also describes feeling quite powerless and vulnerable while laying in a hospital bed and it seems that this has been triggered by certain interactions with staff. Pt describes significant sensitivity to
perceived slights or assumptions and feeling that he is being blamed for his symptoms (in particular relating to his not wanting to use CPAP). He does struggle to identify that these slight may not be intended (or not even there to begin with).
He also describes himself as someone who needs to know and understand his conditions, as well as any procedures & medications that are used. From our discussion, I suspect that he struggles to at times either retain certain discussed information or
to understand it, which leads to irritability and then resistance to the treatment. He did mention that he not gets a print out of what they discussed in his outpatient appointments, which he says has been helpful.
Pt is agreeable to his current care (outside of CPAP), despite his interactions with some staff being disagreeable/irritable.
Adjustment D/o vs possibly underlying depression/CHRIS
MSE: calm,cooperative,,speech is normal rate & rhythm,mood is anxious & stressed, affect is appropriate & congruent to mood, thought process is logical & goal directed, thought content: denies SI/HI/AVH/delusions. AAOx3. Memory not formally tested.
Insight fair. Judgement fair
No acute psychiatric intervention warranted at this time & pt not open to psychotropics. Would benefit from better understanding his treatments (procedures, medications etc) and from feeling some level of control over his care. I suspect that his
refusal to use CPAP or discuss ZARIA is his attempt to exert some sort of control (likely not consciously so), in which case he would likely be more open to this discussion once he gains a sense of agency in his treatment (of course to whatever extent
possible).
I would recommend allowing him to have more written information as this seems to help. I also would recommend not reacting to his disagreeableness or resistance given the above (of course to a reasonable extent), rather whenever he is irritable or
resistant, a neutral discussion would likely be beneficial. An option to consider is to provide him with a print out with information pertaining to whatever the procedure/medication is and to allow him to pose questions once he's had time to review
the information.
The ability to do this is of course quite limited in an inpatient setting, however he responded well to our discussion today so my hope is he is able to work through these barriers.
Would also benefit from having some sort of CM or SW support in the community.
Would benefit from therapy as well but is not open to this currently.
[2024-08-08 19:53] VITALS: BP 131/63
--- NOTE | 2024-08-08 22:04 | PTCARENOTE ---
assumed care of the patient at the change of shift. patient is very agitated regarding his care. patient states that nothing is working for him, 'look at my heart rate.' at that time, HR afib low 100s with PVCs. patient states feeling pulse in his
neck and 'i just dont feel good i need the IV medication.' reviewed with patient oral medications-'those wont work.' patient instructed RN to call the doctor. comfort measures provided. prior to reaching out to physician-HR then appeared to be in SR
70s. EKG completed-SR with a first degree HB. patient states feeling better at that time but still frustrated. patient states he does not want to take the 'new medication' in the morning because it did not help- patient referring to bystolic 5 mg.
new plan of care discussed with patient and verbalized understanding. educated patient to inform RN with any new changes overnight. patient requesting PRN Xanax at bedtime- see dec.
[2024-08-08] MEDS: XALATAN OPHTHALMIC SOLUTION 1 DROP BOTH EYES (22:14)
[2024-08-08 22:17] VITALS: BP 117/69
[2024-08-09] VITALS (13 sets, daily range): BP systolic 109–132; BP diastolic 66–77; BMI 33.6
--- NOTE | 2024-08-09 01:12 | PTCARENOTE ---
on tele review- pacer spike noted after the QRS complex. SR with a first degree AVB 70s with a pacer spike after the QRS.
[2024-08-09] MEDS: XANAX 0.25 MG PO ×2 (03:46→22:12)
[2024-08-09] MEDS: TYLENOL 500 MG PO (06:28)
[2024-08-09] MEDS: FLUSH (NSS) 1 FLUSH IV ×2 (09:27→09:33)
[2024-08-09] MEDS: ASPIR LOW (ENTERIC COATED) 81 MG PO (09:32)
[2024-08-09] MEDS: CLARITIN 10 MG PO (09:32)
[2024-08-09] MEDS: BETAPACE 80 MG PO ×2 (09:32→20:24)
[2024-08-09] MEDS: CARDIZEM CD 120 MG PO ×2 (09:33→20:24)
--- NOTE | 2024-08-09 09:36 | W.PN.CARDCBS ---
Addendum entered and electronically signed by Nayely Taveras DO 08/09/24 10:04:
I saw and examined the patient.
The Patient Day Coordinator's note was reviewed and I agree with the note.
Comment: Patient seen and examined. States that he feels horrible and is ready to proceed with AV node ablation and is hopeful it can be done this admission. No chest pain or pressure.
GEN: NAD. AAO x3
LUNGS: Bronchovesicular breath sounds, decreased at bases but clear
CV: Regular positive S1-S2. Positive pacemaker site intact. Atrial flutter on tele
ABD: Obese, positive bowel sounds. Nontender
EXT: No edema bilaterally
Plan:
Symptomatic recurrent atrial tachycardia/atrial fibrillation/atrial flutter currently in atrial flutter
-Patient's PPM interrogated by device rep on 08/09/24 and he is in atrial flutter.
-Status post Medtronic pacemaker 05/25/2024 with normal function
-Plan discussed with Dr. Vázquez. Patient is willing to proceed with AV node ablation 08/09/24.
-Discussed risks vs benefits of AV node ablation. Importance of regular device follow up reviewed and patient seems to have done a lot of his own research on AV node ablation and asked pointed questions with satisfactory answers provided.
-Patient was given his usual dose of Xarelto 20 mg on 08/08/24 PM.
-Patient is willing to take his usual doses of sotalol 80 mg BID and Cardizem CD 120 mg BID on 08/09/24 AM, but he feels as though newly started nebivolol is not working and with plans for AV node ablation we will stop nebivolol.
-Patient reported that he will never tolerate CPAP therapy and feels that the makers of Inspire lied in their commercials. Listened and offered support about how difficult his life has been lately.
Original Note:
Today's Communication / Plan
-
AV node ablation today
Impression / Plan
-
Primary care physician: Graham Ramesh MD
Primary EP: Dr. Dionte Vázquez and Dr. Richard of [facility]
Impression:
Recurrent atrial tachycardia following cardioversion 08/02/24
Recurrent symptomatic paroxysmal atypical atrial flutter with RVR
Recurrent paroxysmal atrial fibrillation with prior PVI 2017, 04/2022, 12/26/22, 06/10/23, 01/29/24 at [facility]
s/p Medtronic DC PPM 06/02/24
OAC recently discontinued 04/2024 as with loop recorder in place and then PPM in place since 06/02/24
patient interested in watchman procedure
Chronic sotalol therapy
CAD s/p 2.5 mm Xience to prox Diag-1 and 2.25 mm Xience to prox OM-1 04/09/24
Chronic HFpEF
HTN
ZARIA not compliant with CPAP
Moderate MS with mean gradient 9 mmHg by echo 04/09/24
Obesity
OA s/p L TKR 04/30/23
Cardiac catheterization 04/09/2024: Luminal irregularities of left main, medium caliber D1 with hazy 90% proximal stenosis, 50-60% mid LAD IFR negative, small D2 with 80% stenosis, medium to large OM1 with 90% stenosis, small nondominant RCA, 2.5 x 18
mm Xience saray point stent to D1, 2.25 x 15 mm Xience saray point stent to OM1
GARCIA 06/06/23: EF 55%, left atrium dilated, mild mitral stenosis, mild to moderate MR, aortic sclerosis with trace AR, trace TR
Echo 04/09/24: EF 55-60%, stage III diastolic dysfunction, normal RV size and function, mod MR, mod MS with mean gradient 9 mmHg, mild aortic regurgitation
Plan:
-Patient's PPM interrogated by device rep on 08/09/24 and he is in atrial flutter. Patient is willing to proceed with AV node ablation 08/09/24. Patient had 2 cups of coffee, but no food and case will added to EP schedule 08/09/24 afternoon.
-Discussed risks vs benefits of AV node ablation. Importance of regular device follow up reviewed and patient seems to have done a lot of his own research on AV node ablation and asked pointed questions with satisfactory answers provided.
-Patient was given his usual dose of Xarelto 20 mg on 08/08/24 PM.
-Patient is willing to take his usual doses of sotalol 80 mg BID and Cardizem CD 120 mg BID on 08/09/24 AM, but he feels as though newly started nebivolol is not working and with plans for AV node ablation we will stop nebivolol.
-Patient reported that he will never tolerate CPAP therapy and feels that the makers of Inspire lied in their commercials. Listened and offered support about how difficult his life has been lately.
Progress Note - Gis Specialist
Subjective
Date of Service: August 09, 2024
No chest pain or SOB
Objective
Labs:
08/08/24 05:09
08/08/24 05:09
Labs
Hgb 12.6 g/dL (13.0-18.0) L 08/08/24 05:09
Hct 37.7 % (39.0-52.0) L 08/08/24 05:09
Plt Count 183 10^3/uL (130-400) 08/08/24 05:09
Sodium 140 mmol/L (135-145) 08/08/24 05:09
Potassium 3.9 mmol/L (3.5-5.1) 08/08/24 05:09
BUN 29 mg/dl (9-20) H 08/08/24 05:09
Creatinine 0.6 mg/dL (0.7-1.3) L 08/08/24 05:09
Glucose 121 mg/dl (70-99) H 08/08/24 05:09
Troponins
08/07/24 08/07/24 08/08/24
19:48 22:31 05:09
Troponin I < 0.012 Cancelled < 0.012
08/08/24 08/08/24
11:04 14:00
Troponin I < 0.012 Cancelled
Vital Signs and I&O:
Vital Signs
Temp Pulse Resp BP Pulse Ox
97.6 F 102 20 132/73 97
08/09/24 06:58 08/09/24 07:00 08/09/24 06:58 08/09/24 06:56 08/09/24 06:58
Vital Signs
Temp Pulse Resp BP Pulse Ox
97.6 F 102 20 132/73 97
08/09/24 06:58 08/09/24 07:00 08/09/24 06:58 08/09/24 06:56 08/09/24 06:58
Intake & Output
08/07/24 08/08/24 08/09/24 08/10/24
07:59 06:59 06:59 06:59
Output Total 650 / 650
Balance -650 / -650
Physical Exam
Physical Exam
GEN: NAD. AAO x3
HEENT: MMM
LUNGS: No audible wheeze
CV: Atrial flutter on tele
ABD: ND
EXT: No edema B/L
NEURO: Gross non-focal
SKIN: No rash
[2024-08-09] MEDS: BYSTOLIC PO (09:49)
--- NOTE | 2024-08-09 09:51 | PTCARENOTE ---
Received patient this morning resting in bed. Upset that he is in and out of AF, telling me he doesn't want the bystolic and that he would like to speak with cardiology and find out about having an ablation. TT to cardiology, Blake ANDUJAR came in to
speak with him and answer all his questions. Dr. Vázquez to do an ablation this afternoon. Patient had coffee this morning but no solid foods, NPO x meds now for procedure later this afternoon.
--- NOTE | 2024-08-09 11:24 | CM ---
Reviewed chart. Met with Mr. Carrero to review discharge plans. He states prior to admission he resides with his spouse and son in an apartment without any steps to enter. He states prior to admission he was independent with ambulation and adls.
He states he does not use any DME in the home. 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 She is on palliative care with [facility]. He states he has a prescription plan. He has been under some considerable stress, trying to
get Medical Assistance for his spouse to assist in her care. He states he is currently capable of caring for her at his home now but concerned if she needs more care down the road. Medical work-up in progress. The discharge plan is to return home
with his spouse and son when medically stable.
--- NOTE | 2024-08-09 13:28 | ITS.CL.ABL ---
Addendum entered and electronically signed by Jairo Vázquez MD 08/09/24 13:46:
Patient felt poorly/fatigued on Bystolic. He describes not feeling poorly with sotalol. Therefore we will indeed discontinue Bystolic and follow low his blood pressure closely.
Will not discontinue sotalol. Will continue sotalol.
Original Note:
Instructor Tap Dancing - Ablation
Ablation
Procedure Report:
ELECTROPHYSIOLOGIC EVALUATION AND POSSIBLE ABLATION
Date of procedure: August 09, 2024
Primary Care Provider: Dr Sadi Adams
INDICATION: Recurrent symptomatic atrial tachycardia
HISTORY:
Recurrent atrial tachyarrhythmias despite prior ablations as well as antiarrhythmic drug therapy. Highly symptomatic with rapid rates. Permanent pacemaker previously placed, May 2024. He presents now for AV colin ablation for rate control.
'TIME-OUT': called and confirmed.
SEDATION/ANESTHESIA:
PROCEDURE:
Ultrasound Guidance performed by me was utilized for femoral venous Vascular Access b/l.
The Medtronic dual-chamber permanent pacemaker was interrogated and reprogrammed from DDD the 50-130 to VVI@ 40 ppm.
After assuring good capture parameters, a deflectable-tip mapping/ablation catheter was advanced to the medial tricuspid annulus region of the right atrium where a HIS potential was identified. The catheter was slightly withdrawn from this location
to a site more proximal on the right atrial septum, about correction between the HIS recording position and that of the coronary sinus os. At this location, a small HIS potential was evident along with large amplitude atrial deflections and a
relatively small ventricular electrogram. Radiofrequency energy was applied at this site using a temperature-controlled system resulted in an accelerated junctional rhythm followed by deceleration and heart block. At the conclusion of this there is
no QRS escape rhythm > 30 bpm.
The Medtronic dual-chamber permanent pacemaker was interrogated and found to have stable function compared to the pre-ablation findings. Reprogramming was performed changing base pacing rate to DDDR 80-130.
COMPLICATIONS: None
SUMMARY:
Successful mapping and ablation of the AV node
Interrogation and reprograming of dual-chamber permanent pacemaker
RECOMMENDATIONS:
At patient's request, we will discontinue sotalol and if blood pressures allow there can be consideration for dose reduction and Cardizem as he no longer requires rate control after AV colin ablation.
Maintain oral anticoagulation. While he has had no major bleeding complications, patient and his family tell me that they wish to discuss watchman implantation at some point in the near future. I told him we can discuss this in more detail at his
next office visit.
Copy:
Dr Sadi Adams
--- NOTE | 2024-08-09 14:22 | PTCARENOTE ---
Patient returned from AV node ablation. Dressing right groin is dry and intact with palpable pedal pulse. Patient is aware of post ablation restrictions. Post EKG done which shows suspect arm lead reversal, correct lead placement verified by myself
and PCT, however shows A flutter. TT to Makayla Alanis PIPING MANAGER with EKG report, will repeat to check. Patient offers no complaints, call kemp in reach. Patient refuses a low cholesterol diet and changed back to regular by PIPING MANAGER.
--- NOTE | 2024-08-09 14:45 | W.PN.HOSP.TC ---
Today's Communication/Plan
-
Post ablation monitoring
Bystolic discontinued
Monitor BP on increased dose of Cardizem while holding lisinopril.
PT assessment
Assessment / Plan
Assessment / Plan
Impression:
Recurrent atrial tachycardia.
Recurrent symptomatic paroxysmal atrial flutter with RVR.
Tachybradycardia syndrome status post PPM placement 05/29
Anticoagulation with Xarelto.
Other conditions:
CAD with history of stenting
Chronic CHF preserved EF
Essential hypertension
Moderate MS
Obstructive sleep apnea intolerant to CPAP
Obesity due to excessive calories with BMI of 33.
Echo 04/09/24: EF 55-60%, stage III diastolic dysfunction, normal RV size and function, mod MR, mod MS with mean gradient 9 mmHg, mild aortic regurgitation
Plan
Recurrent SVT -now rate controlled.
Paroxysmal atrial fibrillation -continue Xarelto.
Status post ablation on 08/09.
Continue diltiazem at increased dose.
Continue sotalol
Stop Bystolic (has poor intolerance
Continue anticoagulation with Xarelto
CAD
Stable with no evidence of ischemia
Continue aspirin
chronic heart failure preserved EF.
Volume status compensated
Hold lisinopril monitoring BP trend while on increased dose of Cardizem
Essential hypertension
Hold lisinopril monitor for hypotension while on increased dose of Cardizem
Obstructive sleep apnea -likely contributing to recurrence of SVT and atrial fibrillation. Patient refusing to discuss ZARIA as he believes that it is not as bad as everyone states. Not compliant with CPAP at home.
Obesity due to excess calories
Full code
Anticipated Discharge: Within 24 hours
Subjective/Interval History
-
Date of Service: August 09, 2024
Objective Data
-
Vital Signs:
Vital Signs
Temp Pulse Resp BP Pulse Ox
97.5 F 80 18 118/76 96
08/09/24 11:56 08/09/24 14:00 08/09/24 11:56 08/09/24 14:00 08/09/24 14:00
I&O
08/08/24 08/09/24 08/10/24
06:59 06:59 06:59
Intake Total 480 / 480
Output Total 650 / 650
Balance -650 / -650 480 / 480
Physical Exam
-
General: Well Developed, Well Nourished and No Apparent Distress
HEENT: Normocephalic and Atraumatic
Respiratory: Clear to Auscultation; Negative Wheezes or Crackles
Cardiac: Regular Rhythm and S1/S2; Negative Murmur
GI: Soft, Nontender, Nondistended and Normal Bowel Sounds
Musculoskeletal: No Clubbing, No Cyanosis and No Edema
Neuro: Awake and Alert
Psych: Calm
[2024-08-09] MEDS: PROTONIX 40 MG PO (17:53)
[2024-08-09] MEDS: XARELTO 20 MG PO (17:53)
--- NOTE | 2024-08-09 18:00 | PTCARENOTE ---
Patient feels good after ablation. Dressing right groin is dry and intact, ambulating in the room without difficulty. Checked with Makayla Alanis NP and patient is ok to received tonight's dose of xarelto. Patient is hoping to go home tomorrow.
[2024-08-09] MEDS: TYLENOL 650 MG PO (20:23)
[2024-08-09] MEDS: XALATAN OPHTHALMIC SOLUTION 1 DROP BOTH EYES (20:25)
--- NOTE | 2024-08-09 23:00 | PTCARENOTE ---
Pt received at change of shift. VSS, AV paced on tele with HR in the 80s. R groin site c/d/i with no complications noted. Pt w complaints of lower back pain from laying on table during procedure. Tylenol administered per order, see MAR. Plan of
care for shift discussed and pt verbalizes understanding. Ambulating independently in room without difficulty. Call kemp within reach.
[2024-08-10] MEDS: TYLENOL 650 MG PO ×2 (02:03→08:35)
[2024-08-10 03:57] VITALS: BP 105/67
[2024-08-10 04:24] LABS: Hematocrit 36.2 % (39.0-52.0); Hemoglobin 12.1 g/dL (13.0-18.0); Mean Corp Hgb Conc. 33.4 g/dL (33.0-37.0); Mean Corpuscular Hgb 29.8 pg (27.0-31.0); Mean Corpuscular Volume 89.2 fL (80.0-94.0); Mean Platelet Volume 9.6 fL (7.4-10.4); Platelet Count 179 10^3/uL (130-400); Red Blood Cell Count 4.06 10^6/uL (4.70-6.10); Red Cell Dist. Width 13.6 % (11.5-14.5); White Blood Cell Count 10.4 10^3/uL (4.8-10.8)
[2024-08-10 04:29] VITALS: BMI 33.7
[2024-08-10 04:42] LABS: Blood Urea Nitrogen 27 mg/dl (9-20); Calcium 8.7 mg/dl (8.4-10.2); Carbon Dioxide 25 mmol/L (22-30); Chloride 105 mmol/L (98-107); Estimated Creatinine Clearance 95 ml/min; Glucose 105 mg/dl (70-99); Potassium 4.2 mmol/L (3.5-5.1); Sodium 139 mmol/L (135-145); eGFR > 60.00
[2024-08-10 08:32] VITALS: BP 112/71
[2024-08-10] MEDS: ASPIR LOW (ENTERIC COATED) 81 MG PO (08:32)
[2024-08-10] MEDS: BETAPACE 80 MG PO (08:32)
[2024-08-10] MEDS: CLARITIN 10 MG PO (08:32)
[2024-08-10] MEDS: CARDIZEM CD 120 MG PO (09:08)
--- NOTE | 2024-08-10 09:10 | CM ---
Reviewed chart. Met with Mr. Carrero to review discharge plans. He states he is feeling better and maybe able to go home soon. He has been ambulating in the room. Gave him information in [employer] in the area. Prior to admission he resides
with his spouse and son in an apartment without any steps to enter. Prior to admission he was independent with ambulation and adls. He does not have any DME in the home that he uses. He has a prescription plan. Medical work-up in progress. The
discharge plan is to return home with his spouse and son when medically stable.
--- NOTE | 2024-08-10 11:26 | W.PN.CARDCBS ---
Addendum entered and electronically signed by Jairo Vázquez MD 08/10/24 12:36:
Patient seen, interviewed and examined by me.
Well-appearing, no acute distress
Regular rate and rhythm with normal S1 and S2, no S3 no S4. There is a grade 1/6 apical holosystolic murmur and no rubs. PMI is normally placed.
Lungs are clear to auscultation bilaterally without wheezes rales or rhonchi.
Right groin no bleeding, no hematomas. No bruits. +2 femoral and distal pulses.
Abdomen soft nontender nondistended with normoactive bowel sounds
Extremities show trace pretibial edema bilaterally no clubbing or cyanosis.
Neurologic exam is grossly nonfocal.
We reviewed the findings and results of yesterday's ablation. All of his questions have been answered.
We have discontinued beta-jessica as it was causing him significant symptoms of fatigue.
We will maintain sotalol to help maintain rhythm control. Currently he is in sinus rhythm (he is atrial and ventricular paced) and he understands he will have breakthroughs of atrial fibrillation/atrial tachycardia but now he will not develop rapid
heart beating. Maintain current dose of sotalol. Paced QTc is 530 ms. Base pacing rate is 80 ppm's status post his ablation of the AV node yesterday. As an outpatient we can consider reducing the base pacing rate in a couple of months.
We will maintain oral anticoagulation. He tells me that he has had frequent significant bruising on anticoagulation. He tells me he wants to discuss left atrial appendage occlusion. We did have a brief discussion regarding this and I will see him
back in the office on August 18 to have a more detailed discussion regarding consideration for left atrial appendage occlusion/watchman implantation.
All of his questions have been answered.
Stable for discharge to home today.
Original Note:
Today's Communication / Plan
-
Cont Cardizem CD 120 mg daily and sotalol 80 mg BID
Stop lisinopril
Stop nebivolol
Impression / Plan
-
Primary care physician: Graham Ramesh MD
Primary EP: Dr. Dionte Vázquez and Dr. Richard of [facility]
Impression:
Recurrent atrial tachycardia following cardioversion 08/02/24
Recurrent symptomatic paroxysmal atypical atrial flutter with RVR
Recurrent paroxysmal atrial fibrillation with prior PVI 2017, 04/2022, 12/26/22, 06/10/23, 01/29/24 at [facility]
s/p [employer] DC PPM 06/02/24
s/p AV node ablation 08/09/24
OAC recently discontinued 04/2024 as with loop recorder in place and then PPM in place since 06/02/24
patient interested in watchman procedure
Chronic sotalol therapy
CAD s/p 2.5 mm Xience to prox Diag-1 and 2.25 mm Xience to prox OM-1 04/09/24
Chronic HFpEF
HTN
ZARIA not compliant with CPAP
Moderate MS with mean gradient 9 mmHg by echo 04/09/24
Obesity
OA s/p L TKR 04/30/23
Cardiac catheterization 04/09/2024: Luminal irregularities of left main, medium caliber D1 with hazy 90% proximal stenosis, 50-60% mid LAD IFR negative, small D2 with 80% stenosis, medium to large OM1 with 90% stenosis, small nondominant RCA, 2.5 x 18
mm Xience saray point stent to D1, 2.25 x 15 mm Xience saray point stent to OM1
GARCIA 06/06/23: EF 55%, left atrium dilated, mild mitral stenosis, mild to moderate MR, aortic sclerosis with trace AR, trace TR
Echo 04/09/24: EF 55-60%, stage III diastolic dysfunction, normal RV size and function, mod MR, mod MS with mean gradient 9 mmHg, mild aortic regurgitation
Plan:
-Patient had AV node ablation 08/09/24
-EP report reviewed, will continue outpatient dose of sotalol 80 mg BID.
Outpatient dose of Cardizem CD was increased to 120 mg BID this admission. Recommend d/c to home on Cardizem CD 120 mg daily.
-Nebivolol was started and stopped this admission. Patient felt as though nebivolol did not improve his symptoms.
-Usual dose of Xarelto 20 mg daily continued
-Patient reported that he will never tolerate CPAP therapy.
-Lisinopril 5 mg daily has been held due to hypotension this admission. Will not d/c to home on lisinopril and can follow up on BPs as an outpatient.
-Cardiology f/u arranged
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
Subjective
Date of Service: August 10, 2024
Feels well, no palpitations
Objective
Labs:
08/10/24 04:04
08/10/24 04:04
Labs
Hgb 12.1 g/dL (13.0-18.0) L 08/10/24 04:04
Hct 36.2 % (39.0-52.0) L 08/10/24 04:04
Plt Count 179 10^3/uL (130-400) 08/10/24 04:04
Sodium 139 mmol/L (135-145) 08/10/24 04:04
Potassium 4.2 mmol/L (3.5-5.1) 08/10/24 04:04
BUN 27 mg/dl (9-20) H 08/10/24 04:04
Creatinine 0.7 mg/dL (0.7-1.3) 08/10/24 04:04
Glucose 105 mg/dl (70-99) H 08/10/24 04:04
Troponins
08/07/24 08/07/24 08/08/24
19:48 22:31 05:09
Troponin I < 0.012 Cancelled < 0.012
08/08/24 08/08/24
11:04 14:00
Troponin I < 0.012 Cancelled
Vital Signs and I&O:
Vital Signs
Temp Pulse Resp BP Pulse Ox
97.9 F 84 18 112/71 99
08/10/24 04:27 08/10/24 09:00 08/10/24 04:27 08/10/24 08:32 08/10/24 04:27
Vital Signs
Temp Pulse Resp BP Pulse Ox
97.9 F 84 18 112/71 99
08/10/24 04:27 08/10/24 09:00 08/10/24 04:27 08/10/24 08:32 08/10/24 04:27
Intake & Output
08/08/24 08/09/24 08/10/24 08/11/24
06:59 06:59 06:59 06:59
Intake Total 480 / 480
Output Total 650 / 650
Balance -650 / -650 480 / 480
Physical Exam
Physical Exam
GEN: NAD. AAO x3
HEENT: MMM
LUNGS: No audible wheeze
CV: Paced on tele
ABD: ND
EXT: No edema B/L
NEURO: Gross non-focal
SKIN: No rash
[2024-08-10 11:30] VITALS: BP 129/70
--- NOTE | 2024-08-10 11:33 | W.DS.TRANS ---
DC Summary - Chemist Instrumentation
-
Discharge Instructions:
Discharge Diagnosis/Procedures Impression:
Recurrent atrial tachycardia.
Recurrent symptomatic paroxysmal atrial flutter
with RVR.
Tachybradycardia syndrome status post PPM
placement 05/29
Anticoagulation with Xarelto.
Other conditions:
CAD with history of stenting
Chronic CHF preserved EF
Essential hypertension
Moderate MS
Obstructive sleep apnea intolerant to CPAP
Obesity due to excessive calories with BMI of 33
.
AVJ ablation
Diet 2 Gram Sodium
Driving Restrictions No driving for 24 hours
Instructions:
Stand-Alone Forms: DC Instructions- Cath/EP Lab
Changes to Home Medications: Yes
Discharge Medications:
DC Medications w/original date entered in [employer]
lactobacillus combination no.4 3 billion cell capsule (Probiotic) 3,000 mmu cells PO DAILY Supplement 12/26/22
latanoprost 0.005 % eye drops 1 drp BOTH EYES HS Eye Condition 04/17/23
loratadine 10 mg tablet (Claritin) 10 mg PO DAILY Allergies 04/18/23
diltiazem HCl 120 mg capsule,24 hr,extended release 120 mg PO DAILY PRN Heart Disease/Condition 06/09/23
aspirin 81 mg tablet,delayed release 81 mg PO DAILY Blood Clot Prevention/Tx 10/03/23
lisinopril 5 mg tablet 5 mg PO DAILY Blood Pressure 10/03/23
acetaminophen 325 mg tablet (Tylenol) 500 mg PO Q6H PRN pain 04/08/24
furosemide 40 mg tablet 40 mg PO DAILY PRN swelling 04/08/24
tadalafil 5 mg tablet 5 mg PO PRN PRN ED 04/08/24
pantoprazole 40 mg tablet,delayed release (Protonix) 40 mg PO QPM GERD 06/02/24
rivaroxaban 20 mg tablet (Xarelto) 20 mg PO QPM Blood Clot Prevention/Tx 06/02/24
sotalol 120 mg tablet 80 mg PO BID Blood Pressure 08/02/24
Home Medication Changes
Bystolic stopped
Lisinopril held with soft blood pressure pending cardiology follow up.
Pending Results: No
--- NOTE | 2024-08-10 12:15 | PTCARENOTE ---
Pt received this am oob in the chair. Gait steady. Denies any pain or discomfort. Continues to be AV paced, rate in the 80's. Right groin site dressing dry and intact with no bleeding or hematoma. Pt discharged to home, picked up by his daughter.
Discharge instructions given and reviewed with good understanding.
== END 2024-08-10 12:04 | disposition home or self-care (01) | DRG 274 ==
LOC: IVU 21:53
PROVIDERS: Emergency Medicine; Internal Medicine Cardiovascular Disease; Nurse Practitioner; ADMITTING PHYSICIAN Hospitalist; ATTENDING PHYSICIAN Internal Medicine; CONSULT PHYSICIAN Internal Medicine Cardiovascular Disease; CONSULT PHYSICIAN Psychiatry & Neurology Psychiatry; EMERGENCY PHYSICIAN Student in an Organized Health Care Education/Training Program; FAMILY PHYSICIAN Family Medicine
PROC: 02K83ZZ Map Conduction Mechanism, Percutaneous Approach (ICD-10-PCS; 2024-08-09)
PROC: 02583ZZ Destruction of Conduction Mechanism, Percutaneous Approach (ICD-10-PCS; 2024-08-09)
DX: I47.19 Other supraventricular tachycardia (principal); I50.32 Chronic diastolic (congestive) heart failure; I11.0 Hypertensive heart disease with heart failure; E11.9 Type 2 diabetes mellitus without complications; E66.09 Other obesity due to excess calories; Z68.33 Body mass index [BMI] 33.0-33.9, adult; I08.0 Rheumatic disorders of both mitral and aortic valves; E78.00 Pure hypercholesterolemia, unspecified; G47.33 Obstructive sleep apnea (adult) (pediatric); I25.10 Atherosclerotic heart disease of native coronary artery without angina pectoris; Z95.5 Presence of coronary angioplasty implant and graft; I25.2 Old myocardial infarction; I48.0 Paroxysmal atrial fibrillation; I49.5 Sick sinus syndrome; Z95.0 Presence of cardiac pacemaker; K21.9 Gastro-esophageal reflux disease without esophagitis; Z79.01 Long term (current) use of anticoagulants; Z79.82 Long term (current) use of aspirin; Z79.899 Other long term (current) drug therapy; Z87.19 Personal history of other diseases of the digestive system; Z87.01 Personal history of pneumonia (recurrent); Z87.891 Personal history of nicotine dependence; Z88.1 Allergy status to other antibiotic agents; Z91.041 Radiographic dye allergy status; Z96.652 Presence of left artificial knee joint
CPT/HCPCS: 80048; 80053; 80061; 83735; 83880; 84443; 84484; 85025; 85027; 93005; 93286; 93650; 96365; 96366; 96376; 99285; C1733; C1760; C1894

== ENCOUNTER → 2024-08-24 09:13 | Outpatient (REF) | payer MEDICARE, OTHER, SELFPAY | LOC: RAD 09:13 | PROVIDERS: ATTENDING PHYSICIAN Internal Medicine Cardiovascular Disease; FAMILY PHYSICIAN Family Medicine | DX: Z95.9 Presence of cardiac and vascular implant and graft, unspecified (principal) | CPT/HCPCS: 75572; Q9967 ==

== ENCOUNTER 2024-08-27 13:03 | Emergency (ER) | payer MEDICARE, OTHER, SELFPAY ==
[2024-08-27 13:07] VITALS: BP 140/71
[2024-08-27 13:42] VITALS: BMI 34.3
--- NOTE | 2024-08-27 13:44 | ED.GENMED ---
History of Present Illness
General
Chief Complaint: Breathing Problem
Source: patient
Exam Limitations: none
Time Seen by Provider: 08/27/24 13:30
History of Present Illness
History of Present Illness:
74-year-old male complaining of progressive shortness of breath with exertion since a ablation for atrial tachycardia about 2 weeks ago. No chest pain although some mild tightness earlier today. No pleuritic pain no shortness of breath. No
infectious symptoms denying fever or chills. Minimal symptoms at rest.
Past History
Past History
ED Past Medical History: Arrthythmia (Atrial fib), CHF, GERD, HTN, NIDDM and Other (PNA, Sleep apnea, Diverticulitis, Pancreatitis, Glaucoma, )
ED Past Surgical History: Cardiac (Ablation X 5, Stents X 2) and Orthopedic (Left hand surgery, Left shoulder surgery. Left total knee replacement)
Social History
Tobacco: Former smoker
Alcohol: Occasional
Drug: None
Personal:
Living: with family
Employment: Retired
Family History
Family History: Other (Noncontributory)
Review of Systems
Review of Systems
All Other Systems: Not applicable
Constitutional: Denies fever or chills
Cardiac: Denies palpitations or syncope
ABD/GI: Reports no symptoms; Denies bloody stools or black stools
Phy Exam
Physical Exam
Physical Exam:
GENERAL: Alert and oriented in no apparent distress
EYE: Orbits normal.
NECK: Supple, no significant adenopathy.
ENT: Pharynx without erythema
CARDIAC: Regular rate and rhythm without any obvious murmurs. Pacer upper chest wall
LUNGS: Clear breath sounds,normal
ABDOMEN: Soft, without focal tenderness or distention
NEUROLOGICAL: Alert and oriented , grossly non-focal
SKIN: Warm and dry, no rash or lesion, no discoloration, skin intact.
MUSCULOSKELETAL: No edema,no deformity.Good color
PSYCH: Normal and appropriate interaction.
Scores
Heart Failure Risk
Heart Failure Risk Score: Not Applicable
Course
Orders/Labs/Results
Orders:
Orders
08/27/24 13:04
Electrocardiogram (*1) Urgent
Reason for Study: Shortness of Breath
EKG- Treatment ONCE
08/27/24 13:31
Cardiac Monitoring- Treatment ONCE
IV Insert/Care/Rem.- Treatment PRN
CR Chest - 2 Views Urgent
Comment:
Reason For Exam: sob
Pulse Ox/cont/shift [RESP] Stat
Quantity: 1
08/27/24 13:49
Basic Metabolic Panel Urgent
Complete Blood Count/With Diff Urgent
NT-proBNP Urgent
Troponin I Urgent
08/27/24 14:18
Echo 2D MMode Color/Doppler Urgent
Reason for Study: acute SOB post ablation, rule out pericardial effusion
Cardiology Consult: Junior Carballo
08/27/24 16:30
Troponin I Routine
Abnormal Lab Results
08/27/24
13:49
RBC 4.02 L 10^6/uL
(4.70-6.10)
Hgb 12.0 L g/dL
(13.0-18.0)
Hct 37.9 L %
(39.0-52.0)
MCV 94.3 H fL
(80.0-94.0)
MCHC 31.7 L g/dL
(33.0-37.0)
Absolute Monos (auto) 0.8 H 10^3/uL
(0.1-0.6)
Lymphocytes % 15.4 L %
(20.5-51.1)
BUN 22 H mg/dl
(9-20)
08/27/24 13:49
08/27/24 13:49
Vital Signs
Initial and Last Documented VS:
Initial Vital Signs
Temp Pulse Resp BP Pulse Ox
97.9 F 82 16 140/71 97
08/27/24 13:07 08/27/24 13:07 08/27/24 13:07 08/27/24 13:07 08/27/24 13:07
Last Documented Vital Signs
Temp Pulse Resp BP Pulse Ox
97.9 F 82 16 140/71 97
08/27/24 13:07 08/27/24 13:07 08/27/24 13:07 08/27/24 13:07 08/27/24 13:07
MDM/Problems Addressed
Differential Diagnosis Includes:
Patient with shortness of breath progressive with exertion since an ablation done 2 weeks ago. Large differential including anemia... Doubt. Pacemaker issue.... Doubt. Will check interrogation. Pulmonary emboli.... Doubt. On Xarelto and
faithful. Recent CTA was unremarkable and he has had symptoms for 2 weeks.. Lung issue.... Doubt. Not describe infectious issues. Lungs are clear. No wheezing or rhonchi. However the recent CTA did show some bronchial wall thickening.
Pericardial effusion.... Doubt. CTA was done 3 days ago with no signs of effusion.... Anginal equivalent... Possible. Workup in progress. Contacted cardiology
*Radiology
Radiology exam reviewed: preliminary read by ED provider (Negative) and radiology read reviewed (Negative)
*Pulse Oximetry
Patient hypoxic: no
*Specialist Physicians Interpretation
Rate: normal
Interpretation: normal
Heart Rate: 82
Rhythm: other (AV sequential)
*Critical Care Note
Total Time (30-74mins, 75-104mins- exclusive of procedures): Not Applicable
Data Reviewed
Review of Other/Old Records Reveals: Labs, Records, Radiology Studies, Testing and Discharge Summary
Update Note
Update Note:
Patient is remained medically stable and nontoxic. Seen and cleared by cardiology. Echocardiogram stable. Interrogated pacer looks good
ED Attending Note
-
Portions of this chart may have been created with voice recognition software.� Occasional wrong word or��sound alike� substitutions may have occurred due to the inherent limitations of voice recognition software.
Discharge Plan
Departure
Patient Disposition: Home (Routine Discharge)
Date of Disposition: 08/27/24
Time of Disposition: 17:23
Patient with high blood pressure during this ER visit?: Yes
Discharge Problem:
Dyspnea on exertion
Instructions: Shortness of Breath (Dyspnea) (DC), BLOOD PRESSURE
Prescriptions:
No Action
Probiotic 3 billion cell Capsule
3,000 mmu cells PO DAILY
latanoprost 0.005 % Drops
1 drp BOTH EYES HS
loratadine [Claritin] 10 mg Tablet
10 mg PO DAILY
diltiazem HCl 120 mg Capsule,Extended Release 24 Hr
120 mg PO DAILY PRN (Reason: Heart Disease/Condition)
aspirin 81 mg Tablet,Delayed Release (Dr/Ec)
81 mg PO DAILY
lisinopril 5 mg tablet
5 mg PO DAILY
furosemide 40 mg Tablet
40 mg PO DAILY PRN (Reason: swelling )
acetaminophen [Tylenol] 325 mg Tablet
500 mg PO Q6H PRN (Reason: pain )
tadalafil 5 mg Tablet
5 mg PO PRN PRN (Reason: ED)
Xarelto 20 mg Tablet
20 mg PO QPM
pantoprazole [Protonix] 40 mg tablet,delayed release (DR/EC)
40 mg PO QPM
sotalol 120 mg tablet
80 mg PO BID
Referrals:
Sebastian Anthony, DO [Family Provider] - Follow up in 2-3 days
Activity Restrictions/Additional Instructions:
Follow-up per cardiology
Start the Lasix as discussed with cardiology
Return with any concerning symptoms including increased shortness of breath chest pain etc.
Interventions
Interventions:
*Risk Screen - Suicide Last Done: 08/27/24 13:07
*General Assessment Last Done: 08/27/24 13:42
*Neglect/Abuse Screening Last Done: 08/27/24 13:07
*ED COVID-19 Vaccine History Last Done: 08/27/24 13:42
ED- Cardiac Assessment Last Done: 08/27/24 13:52
ED- Pulmonary Assessment Last Done: 08/27/24 13:52
Discharge Date and Time
Print Language: [id number]
[2024-08-27 13:50] VITALS: BP 146/83
[2024-08-27 13:56] LABS: % Basophils 0.2 % (0-2); % Eosinophils 2.7 % (0-6); % Immature Granulocytes 0.5 % (0-0.5); % Lymphocytes 15.4 % (20.5-51.1); % Neutrophils 72.2 % (42.2-75.2); Absolute Eosinophils 0.2 10^3/uL (0-0.7); Absolute Lymphocytes 1.3 10^3/uL (1.2-3.4); Absolute Monocytes 0.8 10^3/uL (0.1-0.6); Absolute Neutrophils 6.2 10^3/uL (1.4-6.5); Hematocrit 37.9 % (39.0-52.0); Mean Corp Hgb Conc. 31.7 g/dL (33.0-37.0); Mean Corpuscular Hgb 29.9 pg (27.0-31.0); Mean Corpuscular Volume 94.3 fL (80.0-94.0); Mean Platelet Volume 9.6 fL (7.4-10.4); Nucleated Red Blood Cells % 0 % (-); Platelet Count 154 10^3/uL (130-400); Red Blood Cell Count 4.02 10^6/uL (4.70-6.10); Red Cell Dist. Width 13.1 % (11.5-14.5); White Blood Cell Count 8.6 10^3/uL (4.8-10.8)
[2024-08-27 14:00] VITALS: BP 132/79
[2024-08-27 14:21] LABS: NT-proBNP 1630 pg/ml; Troponin I < 0.012 ng/ml
[2024-08-27 14:33] LABS: Blood Urea Nitrogen 22 mg/dl (9-20); Calcium 8.6 mg/dl (8.4-10.2); Carbon Dioxide 26 mmol/L (22-30); Chloride 103 mmol/L (98-107); Estimated Creatinine Clearance 96 ml/min; Glucose 98 mg/dl (70-99); Potassium 4.4 mmol/L (3.5-5.1); Sodium 138 mmol/L (135-145); eGFR > 60.00
--- NOTE | 2024-08-27 14:33 | CON.CAR ---
Addendum entered and electronically signed by Rick Carballo MD 08/27/24 15:33:
I saw and examined the patient.
The [employer] Superintendent's note was reviewed and I agree with the note.
Comment:
GEN: No distress, awake, Ox3
HEENT: supple, anicteric, mmm
LUNGS: scatt rhonchi
CV: Reg, S1/S2, 1/6 syst LSB, no gallop
ABD: soft, BS+, NT/ND
EXT: No edema
NEURO: Gross non-focal
SKIN: No rash
Plan:
74-year-old male well-known to our service with past medical history of paroxysmal atrial fibrillation/atrial tachycardia/flutter status post multiple PVI's, with recent permanent pacemaker May 2024, AV node ablation August 09, 2024, coronary
artery disease chronic heart failure preserved ejection fraction. He presents with 1 week of shortness of breath fatigue, and dyspnea on exertion. He denies any chest pains. He states he gets exertional symptoms. He denies any coughing or
wheezing. He denies any fevers or chills.
EKG remains AV paced with no current arrhythmias. First cardiac troponin is negative. Will repeat troponin.
proBNP is modestly elevated. I suspect his symptoms are more result of his chronic heart failure with preserved ejection fraction. He is currently declining IV Lasix.
We agreed to check an echocardiogram to look for any structural heart disease. If echo is stable he is likely stable for discharge as long as second troponin is normal.
He does have some level of coronary artery disease. For now we will continue medical therapy if troponins are negative.
He is agreeable to start Lasix at home. He will start 40 mg daily.
Continue sotalol, aspirin, and Eliquis. QTc 500 ms but stable with paced rhythm
Original Note:
Consultation
Consultation Request
Date/Time Consultation Requested: 08/27/2024
Date/Time Consultation Performed: 08/27/2024
Requesting Provider: Dr. Poe
Performing Provider: Martha Cowart PA-C for Dr. Carballo
Reason for Consultation: SOB
Medical History
-
History of Present Illness:
HPI: Jacobo is a 74-year-old male with past medical history of paroxysmal atrial fibrillation with multiple prior PVI's, atrial flutter, atrial tachycardia, PPM 06/02/2024, AV node ablation 08/09/2024, CAD status post SAUL of Diag-1 and OM1 04/09/2024,
chronic HFpEF, hypertension, and ZARIA. He presented to ER for evaluation of ongoing dyspnea on exertion. He states he has had shortness of breath with exertion since his AV node ablation 08/09/2024. He was seen in the cardiology office for
follow-up and workup for watchman was started. He reports he had CT earlier this week and was on prednisone as prophylaxis due to allergy. With this, he feels that his shortness of breath started worsening, and now he feels short of breath with
even ambulating short distances. He takes Lasix only as needed and has not taken any Lasix recently despite weight gain of at least 5 pounds at home. He also notes some swelling in his lower extremities. He denies any chest pain, but states this
a.m. he did have some tightness along his chest. He is unsure if this is related to anxiety. Currently, while lying on stretcher in ER he feels well. He has no shortness of breath at rest. Denies any current chest pain. Denies any palpitations,
dizziness, or lightheadedness.
PMH:
Paroxysmal atrial fibrillation
prior PVI 2017, 04/2022, 12/26/22, 06/10/23, 01/29/[address] [facility]
Paroxysmal atrial flutter
Atrial tachycardia
s/p Medtronic DC PPM 06/02/24
s/p AV node ablation 08/09/24
Chronic Xarelto AC
Patient interested in watchman procedure
Chronic sotalol therapy
CAD
s/p 2.5 mm Xience to prox Diag-1 and 2.25 mm Xience to prox OM-1 04/09/24
Chronic HFpEF
HTN
ZARIA not compliant with CPAP
Moderate MS with mean gradient 9 mmHg by echo 04/09/24
Obesity
OA s/p L TKR 04/30/23
Past Medical History
Past Medical History: Other (In HPI)
Social History
Tobacco: Former Smoker
Alcohol: Occasional
Drug: None
Personal:
Living: With Family
Employment: Retired
Family History
Family History: Reviewed & Not Pertinent
Allergies / Home Medications
Allergy/AdvReac Type Severity Reaction Status Date / Time
amiodarone Allergy sleeplessness, Verified 08/07/24 18:20
acid reflux
azithromycin Allergy Loss of Verified 08/07/24 18:20
smell,
loss of
taste,
metal
taste in
mouth
dofetilide [From Tikosyn] Allergy GERD Verified 08/07/24 18:20
Iodinated Contrast Media Allergy Itching Verified 08/07/24 18:20
[Iodinated Contrast- Oral
and IV Dye]
iodine Allergy Itching Verified 08/07/24 18:20
�Medication �Instructions �Recorded �Confirmed �Type
lactobacillus combination no.4 3 3,000 mmu cells PO DAILY Supplement 12/26/22 08/08/24 History
billion cell capsule (Probiotic)
latanoprost 0.005 % eye drops 1 drp BOTH EYES HS Eye Condition 04/17/23 08/07/24 History
loratadine 10 mg tablet (Claritin) 10 mg PO DAILY Allergies 04/18/23 08/08/24 History
diltiazem HCl 120 mg capsule,24 120 mg PO DAILY PRN Heart 06/09/23 08/07/24 History
hr,extended release Disease/Condition
aspirin 81 mg tablet,delayed 81 mg PO DAILY Blood Clot 10/03/23 08/08/24 History
release Prevention/Tx
lisinopril 5 mg tablet 5 mg PO DAILY Blood Pressure 10/03/23 08/08/24 History
acetaminophen 325 mg tablet 500 mg PO Q6H PRN pain 04/08/24 08/07/24 History
(Tylenol)
furosemide 40 mg tablet 40 mg PO DAILY PRN swelling 04/08/24 08/07/24 History
tadalafil 5 mg tablet 5 mg PO PRN PRN ED 04/08/24 08/07/24 History
pantoprazole 40 mg tablet,delayed 40 mg PO QPM GERD 06/02/24 08/08/24 History
release (Protonix)
rivaroxaban 20 mg tablet (Xarelto) 20 mg PO QPM Blood Clot 06/02/24 08/08/24 History
Prevention/Tx
sotalol 120 mg tablet 80 mg PO BID Blood Pressure 08/02/24 08/08/24 History
Review of Systems
-
History Source: Patient
All other systems: Negative unless noted
Physical Exam
Vital Signs
Temp Pulse Resp BP Pulse Ox
97.9 F 82 16 140/71 97
08/27/24 13:07 08/27/24 13:07 08/27/24 13:07 08/27/24 13:07 08/27/24 13:07
Lab Results
08/27/24 13:49
Troponin I < 0.012 ng/ml 08/27/24 13:49
Yih-R-Hgmfpbqgxno Pept 1630 pg/ml 08/27/24 13:49
Physical Exam
General: Well Developed, Well Nourished and No Apparent Distress
HEENT: Normocephalic, Anicteric and Moist Mucous Membranes
Respiratory: Clear and Non Labored Respirations
Cardiac: S1/S2 and Regular Rhythm
Musculoskeletal: No Clubbing, No Cyanosis and Edema
Skin: Warm and Dry
Neuro: AO x 3 and Nonfocal/Grossly Intact
Psych: Calm
Impression / Plan
-
PCP: Dr. Anthony
Cardiology: Dr. Dionte Vázquez
Impression:
Presented with SOB
Weight gain
Suspected acute on chronic HFpEF
Paroxysmal atrial fibrillation
prior PVI 2017, 04/2022, 12/26/22, 06/10/23, 01/29/24 at [facility]
Paroxysmal atrial flutter
Atrial tachycardia
s/p Medtronic DC PPM 06/02/24
s/p AV node ablation 08/09/24
Chronic Xarelto AC
Patient interested in watchman procedure
Chronic sotalol therapy
CAD
s/p 2.5 mm Xience to prox Diag-1 and 2.25 mm Xience to prox OM-1 04/09/24
HTN
ZARIA not compliant with CPAP
Moderate MS with mean gradient 9 mmHg by echo 04/09/24
Obesity
OA s/p L TKR 04/30/23
Cardiac catheterization 04/09/2024: Luminal irregularities of left main, medium caliber D1 with hazy 90% proximal stenosis, 50-60% mid LAD IFR negative, small D2 with 80% stenosis, medium to large OM1 with 90% stenosis, small nondominant RCA, 2.5 x 18
mm Xience saray point stent to D1, 2.25 x 15 mm Xience saray point stent to OM1
GARCIA 06/06/23: EF 55%, left atrium dilated, mild mitral stenosis, mild to moderate MR, aortic sclerosis with trace AR, trace TR
Echo 04/09/24: EF 55-60%, stage III diastolic dysfunction, normal RV size and function, mod MR, mod MS with mean gradient 9 mmHg, mild aortic regurgitation
Echo 08/27/2024: Study pending
Plan:
-Presented for evaluation of shortness of breath. He has had shortness of breath since AV node ablation 08/09/2024. Worsened after starting prednisone prior to CT 08/24/2024.
-Weight up at least 5 pounds on home scale. He has not been taking Lasix at home.
-CXR without acute abnormality.
-Recommended giving dose of IV Lasix in ER, however he refused, stating that he did not think he would be able to make the drive home. Prefers taking Lasix at home, tomorrow morning.
-Will check echo to reassess. Prior echo 04/09/2024 with preserved EF moderate MR, and moderate MS.
-Initial troponin negative. He has no chest pain currently, however did have episode of chest tightness this AM which he feels may have been related to anxiety.
-Will repeat troponin after 3 hours. AV paced on EKG. No acute ischemic changes noted.
-History of CAD with prior PCI x 2 04/09/2024 as noted above. Reports he is compliant with aspirin and Eliquis. States he previously did not tolerate Plavix due to bruising.
-BP stable. Diltiazem and lisinopril stopped at recent office visit 08/18/2024.
-Continue sotalol 80 mg twice daily.
-If echo and repeat troponin are stable, would be okay to discharge to home. He should take Lasix 40 mg daily for the next 3 days at least, until he is back down to his dry weight of 195 pounds.
-Cardiology follow up arranged.
HPI: Jacobo is a 74-year-old male with past medical history of paroxysmal atrial fibrillation with multiple prior PVI's, atrial flutter, atrial tachycardia, PPM 06/02/2024, AV node ablation 08/09/2024, CAD status post SAUL of Diag-1 and OM1 04/09/2024,
chronic HFpEF, hypertension, and ZARIA. He presented to ER for evaluation of ongoing dyspnea on exertion. He states he has had shortness of breath with exertion since his AV node ablation 08/09/2024. He was seen in the cardiology office for
follow-up and workup for watchman was started. He reports he had CT earlier this week and was on prednisone as prophylaxis due to allergy. With this, he feels that his shortness of breath started worsening, and now he feels short of breath with
even ambulating short distances. He takes Lasix only as needed and has not taken any Lasix recently despite weight gain of at least 5 pounds at home. He also notes some swelling in his lower extremities. He denies any chest pain, but states this
a.m. he did have some tightness along his chest. He is unsure if this is related to anxiety. Currently, while lying on stretcher in ER he feels well. He has no shortness of breath at rest. Denies any current chest pain. Denies any palpitations,
dizziness, or lightheadedness.
Data Reviewed
-
EKG: Tracing Personally Visualized and interpreted
Radiology: Report Reviewed by me
Labs: Labs Reviewed by me
Old Records: Reviewed
[2024-08-27 15:00] VITALS: BP 148/78
[2024-08-27 16:26] VITALS: BP 152/86
[2024-08-27 16:59] LABS: Troponin I < 0.012 ng/ml
[2024-08-27 17:00] VITALS: BP 152/82
== END 2024-08-27 17:37 | disposition home or self-care (01) ==
LOC: EMR 13:03
PROVIDERS: Physician Assistant; EMERGENCY PHYSICIAN Emergency Medicine; FAMILY PHYSICIAN Family Medicine
DX: R06.02 Shortness of breath (principal); I11.0 Hypertensive heart disease with heart failure; I50.9 Heart failure, unspecified; I48.0 Paroxysmal atrial fibrillation; E11.9 Type 2 diabetes mellitus without complications; G47.33 Obstructive sleep apnea (adult) (pediatric); I25.10 Atherosclerotic heart disease of native coronary artery without angina pectoris; Z79.01 Long term (current) use of anticoagulants; Z79.82 Long term (current) use of aspirin; K21.9 Gastro-esophageal reflux disease without esophagitis; Z87.891 Personal history of nicotine dependence; Z95.5 Presence of coronary angioplasty implant and graft; Z98.890 Other specified postprocedural states
CPT/HCPCS: 99285; 71046; 80048; 83880; 84484; 85025; 93005; 93306

== ENCOUNTER 2024-10-02 04:54 | Emergency (ER) | payer MEDICARE, OTHER, SELFPAY ==
[2024-10-02 05:26] LABS: % Basophils 0.6 % (0-2); % Eosinophils 2.3 % (0-6); % Immature Granulocytes 0.2 % (0-0.5); % Lymphocytes 16.5 % (20.5-51.1); % Monocytes 8.5 % (1.7-9.3); % Neutrophils 71.9 % (42.2-75.2); Absolute Basophils 0.1 10^3/uL (0-0.2); Absolute Eosinophils 0.2 10^3/uL (0-0.7); Absolute Lymphocytes 1.4 10^3/uL (1.2-3.4); Absolute Monocytes 0.7 10^3/uL (0.1-0.6); Absolute Neutrophils 6.2 10^3/uL (1.4-6.5); Hematocrit 38.6 % (39.0-52.0); Hemoglobin 12.3 g/dL (13.0-18.0); Mean Corp Hgb Conc. 31.9 g/dL (33.0-37.0); Mean Corpuscular Hgb 29.9 pg (27.0-31.0); Mean Corpuscular Volume 93.7 fL (80.0-94.0); Mean Platelet Volume 9.9 fL (7.4-10.4); Nucleated Red Blood Cells % 0 % (-); Platelet Count 155 10^3/uL (130-400); Red Blood Cell Count 4.12 10^6/uL (4.70-6.10); Red Cell Dist. Width 14.3 % (11.5-14.5); White Blood Cell Count 8.6 10^3/uL (4.8-10.8)
[2024-10-02 05:42] LABS: ALT (SGPT) 12 U/L (0-50); AST (SGOT) 17 U/L (17-59); Albumin 4.1 g/dl (3.5-5.0); Alkaline Phosphatase 55 U/L (38-126); Blood Urea Nitrogen 29 mg/dl (9-20); Carbon Dioxide 27 mmol/L (22-30); Chloride 106 mmol/L (98-107); Estimated Creatinine Clearance 97 ml/min; Glucose 121 mg/dl (70-99); Potassium 4.3 mmol/L (3.5-5.1); Sodium 141 mmol/L (135-145); Total Protein 6.7 g/dl (6.3-8.2); eGFR > 60.00
[2024-10-02 05:50] LABS: NT-proBNP 881 pg/ml; Troponin I 0.015 ng/ml
--- NOTE | 2024-10-02 08:21 | ED.GENMED ---
History of Present Illness
General
Chief Complaint: Breathing Problem
Source: patient
Exam Limitations: none
Time Seen by Provider: 10/02/24 08:01
Nursing documentation reviewed up to this point in time: agreed with
History of Present Illness
History of Present Illness:
74-year-old male w h/o ablation for atrial tachycardia 08/09 with Watchman implant. Here stating progressive shortness of breath with exertion since a ablation. No chest pain now but had some mild tightness earlier today. Denies fever or chills.
Minimal symptoms at rest.
He has appt. with cardiology in Oct but 'I can't wait that long.'
Expresses extreme frustration that no one can tell him what it wrong. Has not changed diet, in fact is trying to maintain his typical weight between 195-198 lbs. On 09/01 records show weight of 93.5 kg and today weight is 95.5 kg (205.7 to 210.1
lbs) gain of 5.5 lbs in past month.
Denies abdominal pain but feels 'bloated'
Past History
Past History
ED Past Medical History: Arrthythmia (Atrial fib), CHF, GERD, HTN, NIDDM and Other (PNA, Sleep apnea, Diverticulitis, Pancreatitis, Glaucoma, )
ED Past Surgical History: Cardiac (Ablation X 5, Stents X 2, Cardiac ablation with Watchman procedure 08/09/24) and Orthopedic (Left hand surgery, Left shoulder surgery. Left total knee replacement)
Social History
Tobacco: Former smoker
Alcohol: Occasional
Drug: None
Personal:
Living: with family
Employment: Retired
Family History
Family History: Other (Noncontributory)
Review of Systems
Review of Systems
Allergies reviewed?: Yes
All Other Systems: ROS reviewed and negative except as documented in HPI and ROS
Constitutional: Reports fatigue; Denies fever
Respiratory: Denies cough or trouble breathing (but feels SOB with exertion)
Cardiac: Reports chest pain (mild earlier today, none now. )
ABD/GI: Denies abdominal pain (but feels bloated.), nausea, vomiting, diarrhea or constipated
: Denies dysuria or difficulty voiding
Musculoskeletal: Denies edema
Skin: Reports no symptoms
Neurological: Reports headache; Denies dizzy, weakness or numbness
Phy Exam
Physical Exam
Physical Exam:
GENERAL: No acute distress. A&Ox3.
CONSTITUTIONAL: Afebrile.
EYES: clear, conjunctivae normal
ENMT: moist mucus membranes, Pharynx nl
RESPIRATORY: Regular respirations, nonlabored, lungs clear.
CARDIOVASCULAR: Regular rate and rhythm, no murmurs, no rubs.
GI: Soft, rotund, nontender, normal BS
MUSCULOSKELETAL: Moves with ease. Well perfused. No edema.
SKIN: Warm, dry, pink
PSYCH: Normal mood and affect. Well kept, interactive and appropriate
NEUROLOGIC: Awake, alert and oriented. No focal neurological deficits
Scores
Heart Failure Risk
Heart Failure Risk Score: Not Applicable
Course
Orders/Labs/Results
Orders:
Orders
10/02/24 05:05
Electrocardiogram (*1) Urgent
Reason for Study: Chest Pain
Cardiac Monitoring- Treatment ONCE
EKG- Treatment ONCE
IV Insert/Care/Rem.- Treatment PRN
O2 Therapy [RESP] Urgent
Titrate/Wean O2 to maintain O2 sat greater than (%): 90
Special Instructions: Maintain sats >/=90%
Pulse Ox/spot Check [RESP] Urgent
Quantity: 1
Special Instructions: ON ROOM AIR
10/02/24 05:15
BNP [NT-proBNP] Urgent
Complete Blood Count/With Diff Urgent
Comprehensive Metabolic Panel Urgent
Troponin I Urgent
10/02/24 09:03
Furosemide [Lasix] 40 mg IV NOW STA
Abnormal Lab Results
10/02/24
05:15
RBC 4.12 L 10^6/uL
(4.70-6.10)
Hgb 12.3 L g/dL
(13.0-18.0)
Hct 38.6 L %
(39.0-52.0)
MCHC 31.9 L g/dL
(33.0-37.0)
Absolute Monos (auto) 0.7 H 10^3/uL
(0.1-0.6)
Lymphocytes % 16.5 L %
(20.5-51.1)
BUN 29 H mg/dl
(9-20)
Glucose 121 H mg/dl
(70-99)
10/02/24 05:15
10/02/24 05:15
Vital Signs
Initial and Last Documented VS:
Initial Vital Signs
BP Pulse Ox
144/65 97
10/02/24 05:01 10/02/24 05:01
Last Documented Vital Signs
Temp Pulse Resp BP Pulse Ox
98.0 F 81 11 146/72 99
10/02/24 05:06 10/02/24 09:53 10/02/24 09:53 10/02/24 10:04 10/02/24 08:45
MDM/Problems Addressed
MDM/Problems Addressed:
74-year-old male w h/o ablation for atrial tachycardia 08/09 with Watchman implant. Here stating progressive shortness of breath with exertion since a ablation. No chest pain now but had some mild tightness earlier today. Denies fever or chills.
Minimal symptoms at rest.
He has appt. with cardiology in Oct but 'I can't wait that long.'
Expresses extreme frustration that no one can tell him what it wrong. Has not changed diet, in fact is trying to maintain his typical weight between 195-198 lbs. On 09/01 records show weight of 93.5 kg and today weight is 95.5 kg (205.7 to 210.1
lbs) gain of 5.5 lbs in past month.
Denies abdominal pain but feels 'bloated'
EKG: Paced ventricular rhythm with occasional AV dual paced complexes with ventricular escape complexes.
Troponin WNL
BNP WNL 881
CBC unremarkable
CMP No clinically significant abnormality
8:30 a.m.
Walked around nurses station twice and HR 101, Pulse ox 97% maintained, he feels SOB and 'woozy.'
Consulted Cardiology Dr. Jovel who requests pt IV Lasix 40 mg IV now and 40 mg BID until seen in office next week, he will try to get him in. Pt states he thinks he already has appt next week.
Pt wants to take Lasix 80 mg daily instead of 40 mg BID, I explained what Dr. Jovel recommends.
9:45 a.m.
Pt urinated 450 ml
Stable for discharge.
*Critical Care Note
Total Time (30-74mins, 75-104mins- exclusive of procedures): Not Applicable
ED Attending Note
-
Portions of this chart may have been created with voice recognition software.� Occasional wrong word or��sound alike� substitutions may have occurred due to the inherent limitations of voice recognition software.
Discharge Plan
Departure
Patient Disposition: Home (Routine Discharge)
Date of Disposition: 10/02/24
Time of Disposition: 09:47
Patient with high blood pressure during this ER visit?: No
Condition: Good
Discharge Problem:
KRAUSE (dyspnea on exertion)
Instructions: Shortness of Breath (Dyspnea) (DC)
Prescriptions:
No Action
Probiotic 3 billion cell Capsule
3,000 mmu cells PO DAILY
latanoprost 0.005 % Drops
1 drp BOTH EYES HS
loratadine [Claritin] 10 mg Tablet
10 mg PO DAILY
diltiazem HCl 120 mg Capsule,Extended Release 24 Hr
120 mg PO DAILY PRN (Reason: Heart Disease/Condition)
aspirin 81 mg Tablet,Delayed Release (Dr/Ec)
81 mg PO DAILY
lisinopril 5 mg tablet
5 mg PO DAILY
furosemide 40 mg Tablet
40 mg PO DAILY PRN (Reason: swelling )
acetaminophen [Tylenol] 325 mg Tablet
500 mg PO Q6H PRN (Reason: pain )
tadalafil 5 mg Tablet
5 mg PO PRN PRN (Reason: ED)
Xarelto 20 mg Tablet
20 mg PO QPM
pantoprazole [Protonix] 40 mg tablet,delayed release (DR/EC)
40 mg PO QPM
sotalol 120 mg tablet
80 mg PO BID
Referrals:
Sebastian Anthony, [Family Provider] -
Roman Jovel MD [Active] - Keep scheduled appt
Activity Restrictions/Additional Instructions:
As we discussed, you will have and appointment with cardiology next week.
You were given Lasix 40 mg here today. Take another 40 mg later today.
Then take 40 mg Lasix twice a day until you discuss further at your cardiology appointment
Interventions
Interventions:
*Risk Screen - Suicide Last Done: 10/02/24 05:06
*General Assessment Last Done: 10/02/24 05:06
*Neglect/Abuse Screening Last Done: 10/02/24 05:06
ED- Fall Risk Assessment Last Done: 10/02/24 10:05
*ED COVID-19 Vaccine History Last Done: 10/02/24 05:06
*Nursing Disposition Last Done: 10/02/24 10:05
ED- Cardiac Assessment Last Done: 10/02/24 05:12
ED- Pulmonary Assessment Last Done: 10/02/24 05:12
Discharge Date and Time
Discharge Date/Time: 10/02/24 10:06
Print Language: FILIPINO
[2024-10-02] MEDS: LASIX 40 MG IV (09:07)
== END 2024-10-02 10:06 | disposition home or self-care (01) ==
LOC: EMR 04:54
PROVIDERS: Student in an Organized Health Care Education/Training Program; EMERGENCY PHYSICIAN Emergency Medicine; FAMILY PHYSICIAN Family Medicine
DX: R06.09 Other forms of dyspnea (principal); I11.0 Hypertensive heart disease with heart failure; I50.9 Heart failure, unspecified; K21.9 Gastro-esophageal reflux disease without esophagitis; E11.9 Type 2 diabetes mellitus without complications; I48.91 Unspecified atrial fibrillation; G47.30 Sleep apnea, unspecified; Z87.891 Personal history of nicotine dependence; Z95.5 Presence of coronary angioplasty implant and graft
CPT/HCPCS: 96374; 99284; 80053; 83880; 84484; 85025; 93005

== ENCOUNTER → 2024-10-13 09:05 | Outpatient (REF) | payer MEDICARE, OTHER, SELFPAY | LOC: MRI 09:05 | PROVIDERS: ATTENDING PHYSICIAN Orthopaedic Surgery Hand Surgery; FAMILY PHYSICIAN Family Medicine | DX: M25.511 Pain in right shoulder (principal) | CPT/HCPCS: 73221 ==

== ENCOUNTER 2024-10-19 05:50 | Inpatient (IN) | payer MEDICARE, OTHER, SELFPAY ==
[2024-10-14 10:11] VITALS: BMI 34.6
[2024-10-19] VITALS (21 sets, daily range): BP systolic 98–165; BP diastolic 46–127; BMI 34.6
[2024-10-19] MEDS: NSS 500 IV (07:06)
--- NOTE | 2024-10-19 07:18 | W.PN.UPDATE ---
Update Note
Progress Note Update
Reviewed patient with the heart team in the prewatchman SDM meeting. The team discussed a 27/31 mm device. Will confirm with intraop imaging. Patient will resume Xarelto post watchman x 3 months until f/u GARCIA.
[2024-10-19] MEDS: BENADRYL 50 MG PO (07:29)
[2024-10-19] MEDS: SOLU-CORTEF 100 MG IV (09:08)
[2024-10-19] MEDS: LASIX 40 MG IV (09:08)
--- NOTE | 2024-10-19 09:42 | WATCHMAN.MD ---
Watchman Implant
-
WATCHMAN LEFT ATRIAL APPENDAGE CLOSURE DEVICE REPORT
Date: October 19, 2024
Referring Adult Basic Education Teacher: Dr Sebastian Anthony
History: Recurrent atrial fibrillation with elevated background thromboembolic risk as well as significant major bleeding risks. He has been evaluated by our Watchman team and in a shared decision-making process it has been decided to move forward
with implantation of left atrial appendage occlusion device.
Watchman Team:
GARCIA: Dr Mikey Morales, D/O/.
Transseptal tracing lathe set up operator: Dr Jairo Vázquez M.D.
Implanter: Dr Tana Alvarez M.D.
Procedure: Watchman left atrial appendage closure.
The patient was placed under general anesthesia by anesthesia.
A GARCIA probe was placed.
Ultrasound Guidance with real-time visualization of needle insertion and vessel patency performed by for femoral venous Vascular Access. Images were taken and saved for the patient's permanent record. Imaging findings typical femoral venous
anatomy. Direct visualization of needle puncture into the femoral vein was observed and recorded.
A 10 Fr sheath was placed in the right femoral vein for ICE.
16 Fr sheath was placed via the right femoral vein to allow access for the watchman sheath
Heparin was administered to goal ACT 350-400 seconds. Fluid bolus was given.
Intracardiac ultrasound catheter was placed in the right atrium identifying the intraatrial septum for transseptal puncture.
Transseptal puncture was performed By Dr Jairo Vázquez. This entailed advancing a sheath with dilator into the superior vena cava and withdrawing both (monitoring intracardiac ultrasound, fluoroscopy and tip pressure) with the tip oriented
toward the atrial septum. The fossa ovalis was engaged (indicated by sudden displacement of the sheath tip as well as tenting of the fossa seen on intracardiac ultrasound). RF transseptal system was used. Left atrial catheter position was confirmed
by echocardiographic imaging, pressure monitoring (LA mean pressure 26 mm Hg with large V waves) and fluoroscopy. The sheath was advanced over the dilator and positioned in the left atrium.
Dr Alvarez positioned and deployed the Watchman device.
The 14 Georgian watchman access system sheath double curve was substituted for the transeptal sheath. A 5 Georgian curved pigtail was then substituted for the guidewire through the watchman sheath to the ostium of the left atrial appendage. The 5
Georgian pigtail was advanced into the left atrial appendage and angiography was performed. This allowed additional measurements assessing left atrial appendage ostium size and EDUIN morphology.
The pigtail catheter was removed from the access sheath. A 35 mm Watchman device was flushed and then placed into the watchman access sheath and advanced through the sheath. The Watchman was clamped into the sheath. The device was deployed into
the left atrial appendage.
The PASS criteria were met. The stability tug test was performed and passed. Angiography and transesophageal echocardiogram revealed no leaks nor jets. The position was confirmed on angiography and transesophageal echo and there were no
significant shoulders. Compression ranges from 20 % to 26 %.
After meeting the PASS release criteria the device was released into the left atrial appendage.
The watchman access sheath was then removed through the transseptal into the IVC. A figure 8 suture closure was performed at the site of the femoral venous puncture and the sheath as it was removed.
Impression:
- Transeptal puncture by Dr Vázquez.
- Successful deployment 24 mm WATCHMAN LAAO occlusion device by Dr Alvarez.
- Ultrasound guidance for vascular access
Recommendations:
Significantly elevated left atrial pressure suggestive of volume overload. He has been managed with as needed diuretic as an outpatient. Will administer 40 mg of IV Lasix today and assess need for any further diuretic overnight and into tomorrow
morning.
Recommended anticoagulation strategy for this specific patient is:
Maintain current anticoagulation regimen of Xarelto 20 mg daily as well as aspirin 81 mg daily (recent drug-eluting stent for CAD) after watchman implantation and then reassess at the 3-month GARCIA. If at that point the device is well-seated ,no
significant leaks and no device related thrombus is observed we can stop Xarelto and maintain aspirin 81 mg daily
At post procedure GARCIA leaks > 5mm are significant and require chronic full anticoagulation or consideration for leak closure. Grazyna-device leaks between 3 and 5 mm may also carry an increased risk. These patients will need individualized risk
assessment and discussion with Watchman team. Leaks < 3 mm are generally considered non-significant. With leak of any size suggestion is to check GARCIA 12 mo out from implant.
- EP CATRINA visit in 8-10 weeks
- Plan for GARCIA 3 mo post LAAO implantation
- Continue cardiovascular care with Dr. Dionte Vázquez in 6 months.
cc: Dr Sebastian Anthony
--- NOTE | 2024-10-19 09:51 | WATCHMAN.MD ---
Watchman Implant
-
ELECTROPHYSIOLOGY/INTERVENTIONAL PROCEDURE REPORT
Date of Procedure: October 19, 2024
Referring: Sebastian Anthony MD
Assisting Physician: Jairo Vázquez MD
PROCEDURES:
1. Left atrial appendage occlusion device using 35 mm WATCHMAN FLX device
2. Intracardiac echocardiography
3. Ultrasound-guided right common femoral venous access
INDICATION: Need for long-term full anticoagulation in the setting of paroxysmal atrial fibrillation with contraindication for long-term anticoagulation.
ACCESS: Right common femoral vein, 16Fr sheath and 9Fr. sheaths, under US guidance using micropunture kit.
HEMODYNAMICS : (mmHg)
LA Pressure: 32
PROCEDURE REPORT:
After informed consent and patient safety 'Timeout' the patient was intubated and sedated by the anesthesiology service. Under ultrasound guidance, the right femoral vein was accessed by Dr. Jairo Vázquez twice for transseptal puncture and
intracardiac ultrasound, respectively. Concomitant transesophageal echocardiogram was performed by Dr. Mikey Morales
Baseline intracardiac ultrasound and GARCIA demonstrated no pericardial effusion.
After ruling out a left atrial appendage thrombus, the patient was heparinized for an ACT between 350-400 seconds and under GARCIA and intracardiac ultrasound guidance transseptal puncture was performed by Dr. Jairo Vázquez, using the Versacross
[place] trans-septal system in a inferior position on the inferior-superior axis and a mid to posterior position on the anterior-posterior axis. Left atrial pressure was significantly elevated at 32 millimeters mercury.
Once transseptal puncture was performed over the [place] wire parked in the body of left atrium, the watchman access double curve sheath was advanced over the versacross dilator. A 5 Japanese pigtail catheter was placed into the left atrial appendage
and an appendage gram was performed using intravenous contrast dye demonstrating an anatomy that was suitable likely for a 35 mm WATCHMAN FLX device.
After appropriately prepping the device, Dr. Tana Alvarez successfully deployed a 35 mm WATCHMAN FLX device. Device showed excellent positioning with no leaks post device deployment. 22 to 29 % compression was noted in the device after deployment.
A 'tug-test' was performed demonstrating stability of the device. Given PASS criteria were met, the device was then released successfully by Dr. Tana Alvarez.
Post procedure, GARCIA imaging demonstrated no new or worse pericardial effusion. Sheaths and catheters were removed from the left atrium and heparin was reversed using protamine. Catheters removed from the femoral veins with [id number] suture
applied. The patient tolerated the procedure well.
Closure Device: Figure of 8 suture
CONCLUSIONS
1. Successful deployment of 35 mm WATCHMAN FLX device under GARCIA and ICE guidance.
RECOMMENDATIONS
1. Plan for daily 20 mg of Xarelto 2 along with 81 mg of aspirin given recent coronary drug-eluting stent.
2. 90-day GARCIA post procedure to assess stability of device and rule out any grazyna-device leaks. If device is well-seated with no significant leaks, plan to discontinue Xarelto at that point and maintain daily baby aspirin 81 mg indefinitely. Of
note, At post procedure GARCIA leaks > 5mm are significant and require chronic full anticoagulation or consideration for leak closure. Grazyna-device leaks between 3 and 5 mm may also carry an increased risk. These patients will need individualized risk
assessment and discussion with Watchman team. Leaks < 3 mm are generally considered non-significant. With leak of any size suggestion is to check GARCIA 12 mo out from implant.
3. Figure of 8 suture removal prior to discharge.
Copy to: Sebastian Anthony
Tana Alvarez MD, [facility], [facility]
--- NOTE | 2024-10-19 10:00 | PTCARENOTE ---
Patient received from the mobile home laborer awake and alert, V-pace HR 70's. Right groin figure 8 dressing soft and dry. Oriented to room and call kemp
--- NOTE | 2024-10-19 11:29 | CM ---
Chart reviewed. Patient is independent of ADLS, lives with his and son in a apartment, 0 [address]JU, 0 DME. Plan is for the patient to return home. CM to follow
--- NOTE | 2024-10-19 11:47 | CM ---
Chart reviewed. Patient is independent of ADLS, lives with his in a 2nd floor apartment, [address], ambulates with a SPC and RW. Patient wears O2 at home and uses [employer]. Patient is a heparin bridge to a TAVR 10/21. Plan is for the patient to
return home with CT Transitional RN. CM to follow
[2024-10-19 11:48] LABS: ACT-LR - POC > 397 Seconds (116-155)
--- NOTE | 2024-10-19 12:25 | SUR.PHASEI ---
HR 119. Patient was almost asleep, awoken by palpations and he looked at the monitor his HR was 113-119 and called for the nurse. Symptoms resolved in a few minutes and patient now V-paced 70, BP 125/69. Strip mounted in chart
[2024-10-19] MEDS: TYLENOL 650 MG PO (16:17)
[2024-10-19] MEDS: PROTONIX 40 MG PO (16:59)
[2024-10-19] MEDS: XARELTO 20 MG PO (16:59)
[2024-10-19] MEDS: BETAPACE 80 MG PO (18:24)
[2024-10-19] MEDS: NSS IV (21:08)
[2024-10-19] MEDS: ATIVAN 0.5 MG PO (21:09)
--- NOTE | 2024-10-20 00:26 | PTCARENOTE ---
Tele remains Vpaced w/ underlining Afib. Right groin dressing soft on palpation and C/D/I. Bilateral DP pulses palpable. Patient aware of POC, call kemp within reach.
[2024-10-20 02:53] VITALS: BP 117/83
[2024-10-20 03:18] VITALS: BMI 33.9
--- NOTE | 2024-10-20 03:26 | PTCARENOTE ---
Patient concerned and appears irritable d/t the fact that his rhythm is Vpaced w/ underlining Afib. HR in the 70-110's at rest, and fluctuates when laying in bed. Patient c/o feeling 'pounding' in his chest when his HR is accelerated. Patient
demanding to talk to the '[employer]' about his pacemaker program settings because he hasn't 'felt right since my shoulder MRI or the AV node ablation '. His MRI was taken on 10/13/24. He reports 'They did something with my settings, and I haven't been
the same'. Emotional support provided. Will pass along to day shift RN. Call kemp within reach.
[2024-10-20 03:28] LABS: Hematocrit 34.3 % (39.0-52.0); Hemoglobin 11.1 g/dL (13.0-18.0); Mean Corp Hgb Conc. 32.4 g/dL (33.0-37.0); Mean Corpuscular Hgb 29.5 pg (27.0-31.0); Mean Corpuscular Volume 91.2 fL (80.0-94.0); Platelet Count 148 10^3/uL (130-400); Red Blood Cell Count 3.76 10^6/uL (4.70-6.10); Red Cell Dist. Width 13.8 % (11.5-14.5)
[2024-10-20 03:43] LABS: Blood Urea Nitrogen 36 mg/dl (9-20); Calcium 8.7 mg/dl (8.4-10.2); Carbon Dioxide 24 mmol/L (22-30); Chloride 106 mmol/L (98-107); Estimated Creatinine Clearance 83 ml/min; Glucose 152 mg/dl (70-99); Magnesium 2.2 mg/dl (1.6-2.3); Potassium 3.5 mmol/L (3.5-5.1); Sodium 140 mmol/L (135-145); eGFR > 60.00
--- NOTE | 2024-10-20 08:02 | W.PN.CARDCBS ---
Addendum entered and electronically signed by Jairo Vázquez MD 10/20/24 10:21:
Patient seen, interviewed and examined by me.
He denies chest pain shortness of breath. He can lay flat with no orthopnea.
On occasions he does feel some fluttering in his chest which has been rather stable since his AV node ablation. Overall he tells me symptoms have markedly improved since AV node ablation
Well-appearing, no acute distress
Regular rate and rhythm with normal S1 and S2, no S3 no S4. There is a grade 1/6 apical holosystolic murmur and no rubs. PMI is normally placed.
Lungs are clear to auscultation bilaterally without wheezes rales or rhonchi.
Abdomen soft nontender nondistended with normoactive bowel sounds
Extremities show trace pretibial edema bilaterally no clubbing or cyanosis.
Neurologic exam is grossly nonfocal.
He underwent successful implantation of left atrial appendage occluding device, watchman on October 19, 2024.
During this procedure he was noted to have markedly elevated left atrial pressure consistent with volume overload
We administered intravenous Lasix yesterday weight is down and fluid balance is negative.
Today he examines euvolemic.
From a cardiac standpoint I believe he is ready for discharge to home today.
Maintain current anticoagulation regimen of Xarelto 20 mg daily as well as aspirin 81 mg daily (recent drug-eluting stent for CAD) after watchman implantation and then reassess at the 3-month GARCIA. If at that point the device is well-seated ,no
significant leaks and no device related thrombus is observed we can stop Xarelto and maintain aspirin 81 mg daily
Original Note:
Today's Communication / Plan
-
Continue eliquis, aspirin
followup GARCIA in 3 months
followup at [facility] as scheduled
home today
Impression / Plan
-
PCP: Sebastian Anthony DO
CDY: Dionte Vázquez MD
74 y/o, presents with recurrent atrial fibrillation with elevated background thromboembolic risk as well as significant major bleeding risks. [id number]=2, HAS-BLED=4, maintained on xarelto 20mg and asa 81 daily. Other PMH sig for CAD w/NSTEMI and
stenting in April 2024, AFib w/multiple PVI procedures as well as SSS/PPM implant with AVN ablation, recurrent bruising and epistaxis.
S/P Watchman device implant
IMPRESSION:
Watchman device implant, 10/19/24
AFib w/PVI (2017, 2021, 12/2022, 06/2023, 01/2024- all done at OSH)
SSS/AT, s/p PPM with LBB pacing (06/02/24)
AVN ablation (08/09/24)
Epistaxis/recurrent bruising
CAD w/NSTEMI, s/p D1 and OM1 SAUL x2 (04/2024)
Chronic diastolic HFpEF, 55-60%
HTN
HLD
Moderate MR
GERD/IBS/diverticulosis
Pancreatitis
ETOH use
ZARIA
Obesity
PLAN:
Tele- A/AV paced w/underlying SR
right groin site stable
resume eliquis and continue aspirin as before
Continue sotalol, diltiazem as before
GARCIA in 3 months as scheduled
Elevated LA pressures intraop at 26- was given iv lasix x1 post procedure w/good diuresis
Hypokalemia this morning- replaced w/40meq KCL
Followup at [facility] as scheduled
Home today
Progress Note - Health Policy Manager
Subjective
Date of Service: October 20, 2024
Denies cp/palps/dyspnea
groin site without pain
oob ambulating
Objective
Labs:
10/20/24 03:07
10/20/24 03:07
Labs
Hgb 11.1 g/dL (13.0-18.0) L 10/20/24 03:07
Hct 34.3 % (39.0-52.0) L 10/20/24 03:07
Plt Count 148 10^3/uL (130-400) D 10/20/24 03:07
Sodium 140 mmol/L (135-145) 10/20/24 03:07
Potassium 3.5 mmol/L (3.5-5.1) 10/20/24 03:07
BUN 36 mg/dl (9-20) H 10/20/24 03:07
Creatinine 0.8 mg/dL (0.7-1.3) 10/20/24 03:07
Glucose 152 mg/dl (70-99) H 10/20/24 03:07
Vital Signs and I&O:
Vital Signs
Temp Pulse Resp BP Pulse Ox
98.4 F 114 16 117/83 95
10/20/24 02:54 10/20/24 06:00 10/20/24 02:54 10/20/24 02:53 10/20/24 02:54
Vital Signs
Temp Pulse Resp BP Pulse Ox
98.4 F 114 16 117/83 95
10/20/24 02:54 10/20/24 06:00 10/20/24 02:54 10/20/24 02:53 10/20/24 02:54
Intake & Output
10/18/24 10/19/24 10/20/24 10/21/24
06:59 06:59 06:59 06:59
Intake Total 1360 / 1360
Output Total 1150 / 1150
Balance 210 / 210
Physical Exam
Physical Exam
AAOx3, MAEE 5
RRR S1 S2 no murmurs
CTA bilat, non labored
soft abd, + bs
right groin site without ht/bleeding, non tender
bilat extremities w/palp distal pulses, no edema
[2024-10-20 08:30] VITALS: BP 119/75
[2024-10-20] MEDS: BETAPACE 80 MG PO (08:31)
[2024-10-20] MEDS: ASPIR LOW (ENTERIC COATED) 81 MG PO (08:31)
[2024-10-20] MEDS: KCL 40 MEQ PO (08:31)
--- NOTE | 2024-10-20 11:14 | W.DS.TRANS ---
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
-
Discharge Instructions:
Discharge Diagnosis/Procedures Afib post watchman device
Diet Low Cholesterol,2 Gram Sodium
Driving Restrictions No driving for 24 hours
Others Tests A GARCIA is scheduled for you on 01/20/2025 at
[facility] with Dr. Carballo. You will
receive information in the mail and a call the
day prior with arrival time.
Instructions:
Stand-Alone Forms: DC Instructions- Cath/EP Lab
Changes to Home Medications: No
Discharge Medications:
DC Medications w/original date entered in [employer]
lactobacillus combination no.4 3 billion cell capsule (Probiotic) 2 mmu cells PO DAILY Supplement 12/26/22
latanoprost 0.005 % eye drops 1 drp BOTH EYES HS Eye Condition 04/17/23
loratadine 10 mg tablet (Claritin) 10 mg PO DAILY Allergies 04/18/23
aspirin 81 mg tablet,delayed release 81 mg PO DAILY Blood Clot Prevention/Tx 10/03/23
acetaminophen 325 mg tablet (Tylenol) 500 mg PO Q6H PRN pain 04/08/24
furosemide 40 mg tablet 40 mg PO DAILY PRN swelling 04/08/24
tadalafil 5 mg tablet 5 mg PO PRN PRN ED 04/08/24
rivaroxaban 20 mg tablet (Xarelto) 20 mg PO QPM Blood Clot Prevention/Tx 06/02/24
omeprazole 40 mg capsule,delayed release 40 mg PO QPM Gastrointestinal Issue 10/12/24
lorazepam 0.5 mg tablet (Ativan) 0.5 mg PO DAILYPRN PRN anxiety 10/19/24
sotalol 80 mg tablet 80 mg PO BID 10/20/24
Home Medication Changes
Pending Results: No
== END 2024-10-20 11:01 | disposition home or self-care (01) | DRG 274 ==
LOC: IVU 05:50
PROVIDERS: Nuclear Medicine Nuclear Cardiology; Nurse Practitioner Adult Health; ADMITTING PHYSICIAN Internal Medicine Cardiovascular Disease
PROC: 02L73DK Occlusion of Left Atrial Appendage with Intraluminal Device, Percutaneous Approach (ICD-10-PCS; 2024-10-19)
PROC: B24BZZ4 Ultrasonography of Heart with Aorta, Transesophageal (ICD-10-PCS; 2024-10-19)
DX: I48.19 Other persistent atrial fibrillation (principal); Z00.6 Encounter for examination for normal comparison and control in clinical research program; I08.1 Rheumatic disorders of both mitral and tricuspid valves; I25.10 Atherosclerotic heart disease of native coronary artery without angina pectoris; Z79.01 Long term (current) use of anticoagulants; Z79.82 Long term (current) use of aspirin; Z91.041 Radiographic dye allergy status
CPT/HCPCS: 33340; 76937; 80048; 83735; 85027; 85347; 93005; 93355; C1759; C1769; C1892; C1894; Q9967

== ENCOUNTER 2024-10-30 11:49 | Emergency (ER) | payer MEDICARE, OTHER, SELFPAY ==
[2024-10-30 12:03] VITALS: BP 130/64
[2024-10-30 13:13] VITALS: BP 145/68
--- NOTE | 2024-10-30 13:24 | ED.GENMED ---
History of Present Illness
<Iman Dawson PA-C - Last Filed: 10/30/24 22:17>
General
Chief Complaint: Breathing Problem
Source: patient
Exam Limitations: none
Time Seen by Provider: 10/30/24 12:59
Nursing documentation reviewed up to this point in time: agreed with
History of Present Illness
History of Present Illness:
This is a 74-year-old male with past medical history of CHF, A-fib on Xarelto and sotalol, GERD presents emergency department today with concerns of exertional shortness of breath and lightheadedness. Patient reports that the symptoms started 3
months ago ever since he had his pacemaker put in. Patient reports that he has had persistent symptoms. He was seen in our ER in August for similar symptoms and his symptoms at that time were attributed to his chronic congestive heart failure
and he was started on Lasix. Patient states since being on his medications, he has no improvement in his symptoms. He denies chest pain.
Past History
<Iman Dawson PA-C - Last Filed: 10/30/24 22:17>
Past History
ED Past Medical History: Arrthythmia (Atrial fib), CHF, GERD, HTN, NIDDM and Other (PNA, Sleep apnea, Diverticulitis, Pancreatitis, Glaucoma, )
ED Past Surgical History: Cardiac (Ablation X 5, Stents X 2, Cardiac ablation with Watchman procedure 08/09/24) and Orthopedic (Left hand surgery, Left shoulder surgery. Left total knee replacement)
Social History
Tobacco: Former smoker
Alcohol: Occasional
Drug: None
Personal:
Living: with family
Employment: Retired
Family History
Family History: Other (Noncontributory)
Review of Systems
<Iman Dawson PA-C - Last Filed: 10/30/24 22:17>
Review of Systems
All Other Systems: ROS reviewed and negative except as documented in HPI and ROS
Phy Exam
<ZENAIDA Richardson Last Filed: 10/30/24 22:17>
Physical Exam
Physical Exam:
General: Patient is well appearing and in no acute distress; non-toxic
Skin: Warm and dry, no rashes or lesions
Head: Normocephalic, atraumatic
Eyes: Sclera non-icteric. EOMs intact.
Cardiac: Regular rate and rhythm, no murmurs
Peripheral Vascular: No lower extremity swelling or edema
Pulm: Normal respiratory effort, no wheezes, rales, or rhonchi
Abdomen: No abdominal tenderness to palpation
Neuro: CN II-XII intact, no focal neurologic deficits.
Psychiatric: Appropriate mood and affect.
Scores
<ZENAIDA Richardson Last Filed: 10/30/24 22:17>
Heart Failure Risk
Heart Failure Risk Score: Yes
History of Stroke or TIA: No
History of intubation for respiratory distress: No
Heart rate on ED arrival >/= 110: No
SaO2 <90% on arrival on room air: No
HR >/=110 during 3min walk test (or too ill to perform test): No
ECG has acute ischemic changes: No
Urea >/=12mmol/L (BUN 33.6mg/dL): No
Serum CO2>/=35mmol/L: No
Troponin I or T elevated to GA Level (0.4mg/dL): No
NT-proBNP >/=5,000ng/L (5,000pg/ml): No
HF Risk Score: 0
Admission Status: LOW RISK 2.8% Consider discharge to home with f/u visit to PCP/Party Plan Sales Consultant
Course
<ZENAIDA Richardson Last Filed: 10/30/24 22:17>
Orders/Labs/Results
Orders:
Orders
10/30/24 11:51
EKG [Electrocardiogram (*1)] Urgent
Reason for Study: Shortness of Breath
10/30/24 11:52
EKG- Treatment ONCE
10/30/24 13:32
IV Insert/Care/Rem.- Treatment PRN
CR Chest - 2 Views Urgent
Comment:
Reason For Exam: shortnessof breath
10/30/24 13:33
pacemaker [Interrogate Pacemaker- Treatment] ONCE
10/30/24 13:48
Complete Blood Count/With Diff Urgent
Comprehensive Metabolic Panel Urgent
NT-proBNP Urgent
Comment: PROBNP ADDED ON BY FLOOR 2:30PM 10-30-24
Troponin I Urgent
10/30/24 14:33
Add On- LAB Urgent
Tests Added?: pro bnp
Abnormal Lab Results
10/30/24
13:48
RBC 3.66 L 10^6/uL
(4.70-6.10)
Hgb 10.6 L g/dL
(13.0-18.0)
Hct 33.8 L %
(39.0-52.0)
MCHC 31.4 L g/dL
(33.0-37.0)
RDW 14.7 H %
(11.5-14.5)
Abs Immat Gran (auto) 0.1 H 10^3/uL
(0-0.05)
Absolute Neuts (auto) 6.7 H 10^3/uL
(1.4-6.5)
Absolute Monos (auto) 0.9 H 10^3/uL
(0.1-0.6)
Lymphocytes % 12.9 L %
(20.5-51.1)
Monocytes % 9.5 H %
(1.7-9.3)
BUN 24 H mg/dl
(9-20)
Glucose 117 H mg/dl
(70-99)
AST 16 L U/L
(17-59)
10/30/24 13:48
10/30/24 13:48
Vital Signs
Initial and Last Documented VS:
Initial Vital Signs
Temp Pulse Resp BP Pulse Ox
97.6 F 74 18 130/64 97
10/30/24 12:03 10/30/24 12:03 10/30/24 12:03 10/30/24 12:03 10/30/24 12:03
Last Documented Vital Signs
Temp Pulse Resp BP Pulse Ox
97.6 F 82 16 145/67 98
10/30/24 12:03 10/30/24 18:29 10/30/24 18:29 10/30/24 17:00 10/30/24 18:55
<Nik Harris, DO - Last Filed: 10/30/24 22:07>
Orders/Labs/Results
Orders:
Orders
10/30/24 11:51
EKG [Electrocardiogram (*1)] Urgent
Reason for Study: Shortness of Breath
10/30/24 11:52
EKG- Treatment ONCE
10/30/24 13:32
IV Insert/Care/Rem.- Treatment PRN
CR Chest - 2 Views Urgent
Comment:
Reason For Exam: shortnessof breath
10/30/24 13:33
pacemaker [Interrogate Pacemaker- Treatment] ONCE
10/30/24 13:48
Complete Blood Count/With Diff Urgent
Comprehensive Metabolic Panel Urgent
NT-proBNP Urgent
Comment: PROBNP ADDED ON BY FLOOR 2:30PM 10-30-24
Troponin I Urgent
10/30/24 14:33
Add On- LAB Urgent
Tests Added?: pro bnp
Abnormal Lab Results
10/30/24
13:48
RBC 3.66 L 10^6/uL
(4.70-6.10)
Hgb 10.6 L g/dL
(13.0-18.0)
Hct 33.8 L %
(39.0-52.0)
MCHC 31.4 L g/dL
(33.0-37.0)
RDW 14.7 H %
(11.5-14.5)
Abs Immat Gran (auto) 0.1 H 10^3/uL
(0-0.05)
Absolute Neuts (auto) 6.7 H 10^3/uL
(1.4-6.5)
Absolute Monos (auto) 0.9 H 10^3/uL
(0.1-0.6)
Lymphocytes % 12.9 L %
(20.5-51.1)
Monocytes % 9.5 H %
(1.7-9.3)
BUN 24 H mg/dl
(9-20)
Glucose 117 H mg/dl
(70-99)
AST 16 L U/L
(17-59)
10/30/24 13:48
10/30/24 13:48
Vital Signs
Initial and Last Documented VS:
Initial Vital Signs
Temp Pulse Resp BP Pulse Ox
97.6 F 74 18 130/64 97
10/30/24 12:03 10/30/24 12:03 10/30/24 12:03 10/30/24 12:03 10/30/24 12:03
Last Documented Vital Signs
Temp Pulse Resp BP Pulse Ox
97.6 F 82 16 145/67 98
10/30/24 12:03 10/30/24 18:29 10/30/24 18:29 10/30/24 17:00 10/30/24 18:55
Hannalt;Iman Dawson PA-C - Last Filed: 10/30/24 22:17>
MDM/Problems Addressed
Differential Diagnosis Includes:
Acute on chronic CHF, dysrhythmia, upper respiratory infection, COPD
MDM/Problems Addressed:
74-year-old male presents emergency department today with 3 months of exertional shortness of breath. He follows with [facility]. He states that he has been seen multiple times for this issue and no one can give him an
answer. On exam he is well-appearing in no acute distress. I do not hear any crackles on his lung exam, his heart is regular rate and rhythm with no murmurs. He does have a pacemaker in place which was interrogated and revealed no dysrhythmias
since October 20. There was noted to have be possible atrial under sensing. Did reviewed case with credit analyst on-call who feel that patient does not need any pacemaker adjustments. Party Plan Sales Consultant on-call says that they will work on getting him in
for appointment this week for follow-up. Patient stable for discharge.
Chronic conditions affecting care:
CHF, EF
<Iman Dawson PA-C - Last Filed: 10/30/24 22:17>
*Radiology
Radiology exam reviewed: preliminary read by ED provider (No acute cardiopulmonary abnormality)
*Pulse Oximetry
Patient hypoxic: no
*EKG
Interpreted by ED Provider?: Yes
EKG Intrepretation Date: 10/30/24
Interpretation: abnormal
Comparison EKG: no changes
Heart Rate: 74
Rate: normal
Griffith: normal axis
*Critical Care Note
Total Time (30-74mins, 75-104mins- exclusive of procedures): Not Applicable
Data Reviewed
Review of Other/Old Records Reveals: Records (Reviewed previous discharge summary from 10/20/2024, patient seen for atrial fibrillation and sick sinus syndrome as well as acute on chronic heart failure)
Source: patient and records
ED Attending Note
<Iman Dawson PA-C - Last Filed: 10/30/24 22:17>
-
Portions of this chart may have been created with voice recognition software.� Occasional wrong word or��sound alike� substitutions may have occurred due to the inherent limitations of voice recognition software.
<Nik Harris DO - Last Filed: 10/30/24 22:07>
ED Attending Note
Patient seen and examined by attending physician: Yes
I performed a history and physical exam of patient and discussed management with resident, I reviewed resident's note and agree with documented findings and plan of care.: Yes
ED Attending Note:
I have reviewed and agree with history treatment plan by Iman Dawson PA-C. My exam revealed 74-year-old male no acute distress, ambulating without difficulty. Patient in sinus rhythm with ventricular pacing on monitor. Do not suspect PE, ACS
or CHF. Stable for discharge.
Discharge Plan
Departure
Patient Disposition: Home (Routine Discharge)
Date of Disposition: 10/30/24
Time of Disposition: 18:31
Patient with high blood pressure during this ER visit?: Yes
Condition: Good
Discharge Problem:
Exertional shortness of breath
Instructions: Shortness of Breath (Dyspnea) (DC), *DCA Heart Failure Instructions, BLOOD PRESSURE
Prescriptions:
No Action
Probiotic 3 billion cell Capsule
2 mmu cells PO DAILY
latanoprost 0.005 % Drops
1 drp BOTH EYES HS
loratadine [Claritin] 10 mg Tablet
10 mg PO DAILY
aspirin 81 mg Tablet,Delayed Release (Dr/Ec)
81 mg PO DAILY
furosemide 40 mg Tablet
40 mg PO DAILY PRN (Reason: swelling )
acetaminophen [Tylenol] 325 mg Tablet
500 mg PO Q6H PRN (Reason: pain )
tadalafil 5 mg Tablet
5 mg PO PRN PRN (Reason: ED)
Xarelto 20 mg Tablet
20 mg PO QPM
omeprazole 40 mg capsule,delayed release(DR/EC)
40 mg PO QPM
lorazepam [Ativan] 0.5 mg Tablet
0.5 mg PO DAILYPRN PRN (Reason: anxiety)
sotalol 80 mg Tablet
80 mg PO BID
Referrals:
Sebastian Anthony, DO [Family Provider] -
Activity Restrictions/Additional Instructions:
Please follow-up with your credit analyst.
PLEASE RETURN EMERGENCY DEPARTMENT SHOULD YOU DEVELOP CHEST PAIN, DIZZINESS, LIGHTHEADEDNESS, SYNCOPAL EPISODES, WEAKNESS IN ONE-SIDED BODY VERSUS OTHER, CONFUSION, INTRACTABLE NAUSEA OR VOMITING, OR ANY OTHER SIGNS OR SYMPTOMS CONCERNING TO YOU.
Interventions
Interventions:
*Risk Screen - Suicide Last Done: 10/30/24 12:03
*General Assessment Last Done: 10/30/24 12:03
*Neglect/Abuse Screening Last Done: 10/30/24 12:03
ED- Fall Risk Assessment Last Done: 10/30/24 18:55
*ED COVID-19 Vaccine History Last Done: 10/30/24 14:57
*Nursing Disposition Last Done: 10/30/24 18:55
ED- Cardiac Assessment Last Done: 10/30/24 14:59
ED- Pulmonary Assessment Last Done: 10/30/24 14:59
Discharge Date and Time
Discharge Date/Time: 10/30/24 18:58
Print Language: TELUGU
[2024-10-30 14:01] LABS: % Basophils 0.9 % (0-2); % Eosinophils 3.8 % (0-6); % Immature Granulocytes 0.5 % (0-0.5); % Lymphocytes 12.9 % (20.5-51.1); % Monocytes 9.5 % (1.7-9.3); % Neutrophils 72.4 % (42.2-75.2); Absolute Basophils 0.1 10^3/uL (0-0.2); Absolute Eosinophils 0.4 10^3/uL (0-0.7); Absolute Immature Granulocytes 0.1 10^3/uL (0-0.05); Absolute Lymphocytes 1.2 10^3/uL (1.2-3.4); Absolute Monocytes 0.9 10^3/uL (0.1-0.6); Absolute Neutrophils 6.7 10^3/uL (1.4-6.5); Hematocrit 33.8 % (39.0-52.0); Hemoglobin 10.6 g/dL (13.0-18.0); Mean Corp Hgb Conc. 31.4 g/dL (33.0-37.0); Mean Corpuscular Volume 92.3 fL (80.0-94.0); Mean Platelet Volume 9.6 fL (7.4-10.4); Nucleated Red Blood Cells % 0 % (-); Platelet Count 166 10^3/uL (130-400); Red Blood Cell Count 3.66 10^6/uL (4.70-6.10); Red Cell Dist. Width 14.7 % (11.5-14.5); White Blood Cell Count 9.3 10^3/uL (4.8-10.8)
[2024-10-30 14:18] LABS: ALT (SGPT) 12 U/L (0-50); AST (SGOT) 16 U/L (17-59); Albumin 3.8 g/dl (3.5-5.0); Alkaline Phosphatase 73 U/L (38-126); Blood Urea Nitrogen 24 mg/dl (9-20); Calcium 8.9 mg/dl (8.4-10.2); Carbon Dioxide 27 mmol/L (22-30); Chloride 104 mmol/L (98-107); Glucose 117 mg/dl (70-99); Potassium 4.5 mmol/L (3.5-5.1); Sodium 137 mmol/L (135-145); Total Bilirubin 0.8 mg/dl (0.2-1.3); Total Protein 6.4 g/dl (6.3-8.2); eGFR > 60.00
[2024-10-30 14:19] LABS: Troponin I < 0.012 ng/ml
[2024-10-30 15:01] LABS: NT-proBNP 1060 pg/ml
[2024-10-30 15:47] VITALS: BP 141/66
[2024-10-30 16:00] VITALS: BP 144/115
[2024-10-30 16:45] VITALS: BP 155/68
[2024-10-30 17:00] VITALS: BP 145/67
== END 2024-10-30 18:58 | disposition home or self-care (01) ==
LOC: EMR 11:49
PROVIDERS: Physician Assistant; EMERGENCY PHYSICIAN Emergency Medicine; FAMILY PHYSICIAN Family Medicine
DX: R06.02 Shortness of breath (principal); I11.0 Hypertensive heart disease with heart failure; I50.9 Heart failure, unspecified; E11.9 Type 2 diabetes mellitus without complications; G47.30 Sleep apnea, unspecified; I48.91 Unspecified atrial fibrillation; Z79.01 Long term (current) use of anticoagulants; K21.9 Gastro-esophageal reflux disease without esophagitis; Z95.5 Presence of coronary angioplasty implant and graft; Z95.0 Presence of cardiac pacemaker; Z87.891 Personal history of nicotine dependence
CPT/HCPCS: 99285; 71046; 80053; 83880; 84484; 85025; 93005

== ENCOUNTER 2024-12-28 06:19 | Day surgery (SDC) | payer MEDICARE, OTHER, SELFPAY ==
[2024-12-28] VITALS (8 sets, daily range): BP systolic 138–160; BP diastolic 59–83; BMI 32.8
[2024-12-28] MEDS: NORMOSOL-R/PLASMALYTE-A 1000 IV (07:50)
[2024-12-28] MEDS: CELEBREX 200 MG PO (07:50)
[2024-12-28] MEDS: TYLENOL 1000 MG PO (07:50)
[2024-12-28 07:59] LABS: % Basophils 0.2 % (0-2); % Eosinophils 1.1 % (0-6); % Immature Granulocytes 0.5 % (0-0.5); % Lymphocytes 13.5 % (20.5-51.1); % Monocytes 10.6 % (1.7-9.3); % Neutrophils 74.1 % (42.2-75.2); Absolute Eosinophils 0.1 10^3/uL (0-0.7); Absolute Immature Granulocytes 0.1 10^3/uL (0-0.05); Absolute Lymphocytes 1.6 10^3/uL (1.2-3.4); Absolute Monocytes 1.3 10^3/uL (0.1-0.6); Absolute Neutrophils 8.8 10^3/uL (1.4-6.5); Hematocrit 40.9 % (39.0-52.0); Hemoglobin 13.2 g/dL (13.0-18.0); Mean Corp Hgb Conc. 32.3 g/dL (33.0-37.0); Mean Corpuscular Hgb 28.1 pg (27.0-31.0); Mean Corpuscular Volume 87.2 fL (80.0-94.0); Mean Platelet Volume 9.5 fL (7.4-10.4); Nucleated Red Blood Cells % 0 % (-); Platelet Count 201 10^3/uL (130-400); Red Blood Cell Count 4.69 10^6/uL (4.70-6.10); Red Cell Dist. Width 14.7 % (11.5-14.5); White Blood Cell Count 11.8 10^3/uL (4.8-10.8)
[2024-12-28 08:08] LABS: INR 1.13; PT 14.8 Sec (11.4-14.6)
[2024-12-28 08:10] LABS: ALT (SGPT) 14 U/L (0-50); AST (SGOT) 17 U/L (17-59); Albumin 4.2 g/dl (3.5-5.0); Alkaline Phosphatase 66 U/L (38-126); Blood Urea Nitrogen 24 mg/dl (9-20); Calcium 9.1 mg/dl (8.4-10.2); Carbon Dioxide 26 mmol/L (22-30); Chloride 106 mmol/L (98-107); Estimated Creatinine Clearance 109 ml/min; Glucose 111 mg/dl (70-99); Potassium 4.7 mmol/L (3.5-5.1); Sodium 137 mmol/L (135-145); Total Bilirubin 0.9 mg/dl (0.2-1.3); Total Protein 6.8 g/dl (6.3-8.2); eGFR > 60.00
--- NOTE | 2024-12-28 19:14 | SUR.PHASEII ---
dr mcnulty seen in SDS after pt decided to leave rather than to speak with dr mcnulty in person about his concerns that was made aware of. let him know that the patient would still be expecting a phone call to discuss. phone call from daughter,
bouchra, received at around 1900 this evening, saying they had yet to hear from the dr. TT sent to dr mcnulty.
== END 2024-12-28 13:07 | disposition home or self-care (01) ==
LOC: SDS 06:19
PROVIDERS: ATTENDING PHYSICIAN Orthopaedic Surgery Hand Surgery
PROC: 0PB94ZZ Excision of Right Clavicle, Percutaneous Endoscopic Approach (ICD-10-PCS; 2024-12-28)
PROC: 0RNJ4ZZ Release Right Shoulder Joint, Percutaneous Endoscopic Approach (ICD-10-PCS; 2024-12-28)
DX: M19.011 Primary osteoarthritis, right shoulder (principal); M75.41 Impingement syndrome of right shoulder; M75.101 Unspecified rotator cuff tear or rupture of right shoulder, not specified as traumatic
CPT/HCPCS: 29827; 29826; 29824; 80053; 85025; 85610

== ENCOUNTER 2025-02-17 07:19 | Observation (INO) | payer MEDICARE, OTHER, SELFPAY ==
[2025-02-17 02:56] VITALS: BP 161/79
[2025-02-17 03:34] LABS: % Basophils 0.6 % (0-2); % Eosinophils 3.8 % (0-6); % Immature Granulocytes 0.5 % (0-0.5); % Lymphocytes 13.5 % (20.5-51.1); % Monocytes 12.4 % (1.7-9.3); % Neutrophils 69.2 % (42.2-75.2); Absolute Basophils 0.1 10^3/uL (0-0.2); Absolute Eosinophils 0.4 10^3/uL (0-0.7); Absolute Immature Granulocytes 0.1 10^3/uL (0-0.05); Absolute Lymphocytes 1.5 10^3/uL (1.2-3.4); Absolute Monocytes 1.4 10^3/uL (0.1-0.6); Absolute Neutrophils 7.6 10^3/uL (1.4-6.5); Hematocrit 39.8 % (39.0-52.0); Hemoglobin 12.6 g/dL (13.0-18.0); Mean Corp Hgb Conc. 31.7 g/dL (33.0-37.0); Mean Corpuscular Hgb 27.8 pg (27.0-31.0); Mean Corpuscular Volume 87.9 fL (80.0-94.0); Mean Platelet Volume 9.2 fL (7.4-10.4); Nucleated Red Blood Cells % 0 % (-); Platelet Count 208 10^3/uL (130-400); Red Blood Cell Count 4.53 10^6/uL (4.70-6.10); Red Cell Dist. Width 15.3 % (11.5-14.5)
[2025-02-17 03:53] LABS: ALT (SGPT) 14 U/L (0-50); AST (SGOT) 16 U/L (17-59); Albumin 3.8 g/dl (3.5-5.0); Alkaline Phosphatase 67 U/L (38-126); Blood Urea Nitrogen 30 mg/dl (9-20); Calcium 9.4 mg/dl (8.4-10.2); Carbon Dioxide 25 mmol/L (22-30); Chloride 108 mmol/L (98-107); Glucose 126 mg/dl (70-99); Lipase 141 U/L (23-300); Potassium 4.8 mmol/L (3.5-5.1); Sodium 140 mmol/L (135-145); Total Bilirubin 0.4 mg/dl (0.2-1.3); eGFR > 60.00
--- NOTE | 2025-02-17 03:54 | ED.GENMED ---
History of Present Illness
General
Chief Complaint: Abdominal Pain
Source: patient and family
Time Seen by Provider: 02/17/25 03:43
History of Present Illness
History of Present Illness:
75-year-old male presents with upper abdominal pain. States he felt like this in the past and he had pancreatitis. Symptoms began yesterday afternoon. Patient states the pain is just a dull persistent ache in the mid abdomen. Patient states he
was just worried because of her pancreatitis could be problematic. Patient denies nausea or vomiting. No fevers. Has had a little bit of back pain as well. Patient mitts he is allergic to IV dye. Son is in the room at bedside and confirms she
has had persistent pain. Patient states he only occasionally drinks alcohol and last time he had a drink was Friday he had 2 beers.
Past History
Past History
ED Past Medical History: Arrthythmia (Atrial fib), CHF, GERD, HTN, NIDDM and Other (PNA, Sleep apnea, Diverticulitis, Pancreatitis, Glaucoma, )
ED Past Surgical History: Cardiac (Ablation X 5, Stents X 2, Cardiac ablation with Watchman procedure 08/09/24) and Orthopedic (Left hand surgery, Left shoulder surgery. Left total knee replacement)
Social History
Tobacco: Former smoker
Alcohol: Occasional
Drug: None
Personal:
Living: with family
Employment: Retired
Family History
Family History: Other (Noncontributory)
Phy Exam
Physical Exam
Physical Exam:
CONSTITUTIONAL Patient alert and oriented to person, place and time. Well-appearing. Vital signs reviewed.
HEAD atraumatic, normocephalic.
EYES eyelids normal to inspection, Extraocular muscles intact, Conjunctiva normal, Sclera normal.
NECK normal range of motion, Trachea midline, no jugular venous distention.
RESPIRATORY CHEST No respiratory distress noted, Chest expansion equal,
ABDOMEN moderate epigastric tenderness, Bowel sounds normal. No distention.
BACK normal inspection, no obvious deformities
UPPER EXTREMITY range of motion normal, Motor strength normal, no cyanosis, no edema.
LOWER EXTREMITY range of motion normal, Motor strength normal, no cyanosis, no edema.
NEURO Speech normal, No focal motor deficits, Tere coma scale 15, Memory normal, Cranial Nerves intact to screening exam.
SKIN skin warm, dry, and normal in color.
Course
Orders/Labs/Results
Orders:
Orders
02/17/25 03:20
Complete Blood Count/With Diff Urgent
Comprehensive Metabolic Panel Urgent
Lipase Urgent
02/17/25 03:51
0.9% Sodium Chloride 500 ml [Nss] 500 ml IV BOLUS
Diphenhydramine [Benadryl] 50 mg IV NOW STA
Hydrocortisone Sod Succinate [Solu-Cortef] 200 mg IV NOW STA
Morphine Sulfate 4 mg IV NOW STA
Ondansetron Injectable [Zofran] 4 mg IV NOW STA
02/17/25 04:18
CT Abd/Pel (IV only)-DH only Urgent
Comment:
Reason For Exam: mid upper abd pain, h/o pancreatitis
Abnormal Lab Results
02/17/25
03:20
WBC 11.0 H 10^3/uL
(4.8-10.8)
RBC 4.53 L 10^6/uL
(4.70-6.10)
Hgb 12.6 L g/dL
(13.0-18.0)
MCHC 31.7 L g/dL
(33.0-37.0)
RDW 15.3 H %
(11.5-14.5)
Abs Immat Gran (auto) 0.1 H 10^3/uL
(0-0.05)
Absolute Neuts (auto) 7.6 H 10^3/uL
(1.4-6.5)
Absolute Monos (auto) 1.4 H 10^3/uL
(0.1-0.6)
Lymphocytes % 13.5 L %
(20.5-51.1)
Monocytes % 12.4 H %
(1.7-9.3)
Chloride 108 H mmol/L
(98-107)
BUN 30 H mg/dl
(9-20)
Glucose 126 H mg/dl
(70-99)
AST 16 L U/L
(17-59)
02/17/25 03:20
02/17/25 03:20
Vital Signs
Initial and Last Documented VS:
Initial Vital Signs
Temp Pulse Resp BP Pulse Ox
97.6 F 91 18 161/79 98
02/17/25 02:56 02/17/25 02:56 02/17/25 02:56 02/17/25 02:56 02/17/25 02:56
Last Documented Vital Signs
Temp Pulse Resp BP Pulse Ox
97.6 F 91 18 161/79 98
02/17/25 02:56 02/17/25 02:56 02/17/25 02:56 02/17/25 02:56 02/17/25 02:56
MDM/Problems Addressed
Differential Diagnosis Includes:
Pancreatitis, gastritis, duodenitis, AAA, peptic ulcer disease cholecystitis, cholelithiasis
MDM/Problems Addressed:
Acute pancreatitis
*Radiology
Radiology exam reviewed: preliminary read by ED provider (No free air) and radiology read reviewed
*Pulse Oximetry
Patient hypoxic: no
*Critical Care Note
Total Time (30-74mins, 75-104mins- exclusive of procedures): Not Applicable
Data Reviewed
Review of Other/Old Records Reveals: Discharge Summary (Discharge summary from October 20, 2024 reviewed)
Source: patient and family
Patient Management
Discussion with other providers: Hospitalist
Escalation/DeEscalation of care consider admission/obs:
75-year-old male presents with upper abdominal pain. Suspect his pain is coming back. CT shows pancreatitis. Lipase actually normal and hemodynamically currently stable. Continue fluids and pain control.
ED Attending Note
-
Portions of this chart may have been created with voice recognition software.� Occasional wrong word or��sound alike� substitutions may have occurred due to the inherent limitations of voice recognition software.
Discharge Plan
Departure
Patient Disposition: Admit
Date of Disposition: 02/17/25
Time of Disposition: 05:49
Admit to: Med/Surg
Presentation/result/management discussed w/ accepting MD/DO: Hospitalist
Discharge Problem:
Acute pancreatitis
Prescriptions:
No Action
latanoprost 0.005 % Drops
1 drp BOTH EYES HS
loratadine [Claritin] 10 mg Tablet
10 mg PO PRN PRN (Reason: hives/itching)
aspirin 81 mg Tablet,Delayed Release (Dr/Ec)
81 mg PO DAILY
furosemide 40 mg Tablet
40 mg PO DAILY PRN (Reason: swelling )
tadalafil 5 mg Tablet
5 mg PO PRN PRN (Reason: ED)
omeprazole 40 mg capsule,delayed release(DR/EC)
40 mg PO QPM
lorazepam [Ativan] 0.5 mg Tablet
0.5 mg PO HSPRN PRN (Reason: anxiety/sleep)
acetaminophen [Tylenol Ex Str Rapid Release] 500 mg Tablet
1,000 mg PO DAILY
Probiotic
2 cap PO DAILY
lisinopril 5 mg Tablet
5 mg PO DAILY
Referrals:
UNKNOWN - PT DOES,NOT KNOW [Family Provider] -
Interventions
Interventions:
*Risk Screen - Suicide Last Done: 02/17/25 02:56
*General Assessment Last Done: 02/17/25 03:00
*Neglect/Abuse Screening Last Done: 02/17/25 03:00
*ED- Fall Risk Assessment Last Done: 02/17/25 03:00
*ED COVID-19 Vaccine History Last Done: 02/17/25 03:00
YS-Ebgvdr-Tyahpqmrvs Assessment Last Done: 02/17/25 04:00
Discharge Date and Time
Print Language: HAITIAN
[2025-02-17] MEDS: NSS 500 IV (04:02)
[2025-02-17] MEDS: MORPHINE SULFATE 4 MG IV ×4 (04:03→17:31)
[2025-02-17] MEDS: ZOFRAN 4 MG IV (04:04)
[2025-02-17] MEDS: BENADRYL 50 MG IV (04:05)
[2025-02-17] MEDS: SOLU-CORTEF 200 MG IV (04:06)
--- NOTE | 2025-02-17 06:37 | HPS.HSE ---
Family Physician
-
Family Physician: NOT KNOW UNKNOWN - PT DOES
Chief Complaint
-
Abdominal pain
History of Present Illness
This is a 75-year-old with past medical history of atrial fibrillation status post PVI, s/p PPM and PPM dependent, recently status post Watchman procedure now off anticoagulation, hypertension, CHF mildly EF, CAD presenting to the emergency
department with her periumbilical abdominal pain that started 1 day ago.
Patient reported that developed abdominal pain that feels like a knot in the center of his abdomen. He had associated headache. The headache resolved with tylenol but abdominal pain persisted. He had mild nausea but no vomiting. He was not
having any diarrhea. He denied having any flank pain. He denied having any fever or chills. He noticed that he started having back pain as well. This was reminiscent of his prior episode of pancreatitis which occurred in September.
Patient reported that he drank 3 bottles of light beer on Friday. He states that he is not unusual but he generally drinks occasionally. He has not had a drink since then. Reported that on his last episode when he was diagnosed with pancreatitis
he was not related to any alcohol intake.
In the emergency department he was afebrile, blood pressure was 160/79 with a pulse of 91 and satting 98% on room air.
White count was 11, hemoglobin 12.6 and platelet 208. Electrolytes were within normal limits. BUN and creatinine were within the normal range. Glucose was 126.
LFTs were completely normal. Lipase was normal.
Medical History
Past Medical History
Past Medical History: Reports Other
Additional Past Medical History:
SVT
Paroxysmal Atrial Fibrillation
Atypical Atrial Flutter
ASCVD
Chronic HFpEF
Hypertension
DJD / OA
Obesity
Past Surgical History: Reports Other
Additional Past Surgical History:
PPM Placement (06/02/24)
PTCA with Stent (April 2024)
PVI Ablations x multiple
Left TKA
Left Shoulder Surgery
Left Hand Surgery
Social History
Tobacco: Non-smoker
Alcohol: Occasional
Drug: None
Family History
Family History: Not pertinent and Other (Unable to confirm with patient.)
Allergies / Home Medications
Allergies reflects when Allergies were last updated in [facility].
Home Medications with original date entered in [facility]
Allergy/Medication List:
Allergies
Allergy/AdvReac Type Severity Reaction Status Date / Time
amiodarone Allergy sleeplessness, Verified 08/07/24 18:20
acid reflux
azithromycin Allergy Loss of Verified 08/07/24 18:20
smell,
loss of
taste,
metal
taste in
mouth
dofetilide [From Tikosyn] Allergy GERD Verified 08/07/24 18:20
Iodinated Contrast Media Allergy Itching Verified 08/07/24 18:20
[Iodinated Contrast- Oral
and IV Dye]
iodine Allergy Itching Verified 08/07/24 18:20
Home Medications
aspirin 81 mg tablet,delayed release 81 mg PO DAILY Blood Clot Prevention/Tx 10/03/23
lisinopril 5 mg tablet 5 mg PO DAILY Blood Pressure 10/03/23
furosemide 40 mg tablet 40 mg PO DAILY PRN swelling 04/08/24
Review of Systems
-
History Source: Patient
Constitutional: Reports No Symptoms
EENT: Reports No Symptoms
Respiratory: Reports No Symptoms
Cardiac: Reports No Symptoms
Abdomen/GI: Reports Abdominal Pain and Nausea
: Reports No Symptoms
Musculoskeletal: Reports No Symptoms
Skin: Reports No Symptoms
Neurological: Reports No Symptoms
Endocrine: Reports No Symptoms
Hematologic/Lymphatic: Reports No Symptoms
Psych: Reports No Symptoms
Physical Exam
Vital Signs
Vital Signs
Temp Pulse Resp BP Pulse Ox
97.6 F 93 18 161/79 95
02/17/25 02:56 02/17/25 06:15 02/17/25 02:56 02/17/25 02:56 02/17/25 06:00
Physical Exam
General: No Apparent Distress
HEENT: NormoCephalic, Anicteric, Moist mucous membranes and PERRLA
Respiratory: Clear; No Wheezes or Crackles
Cardiac: S1/S2 and Regular Rhythm
GI: Soft, Non Distended, Normal Bowel Sounds and Tender
Rectal: Deferred by Provider
Genito-urinary: Deferred by me
Musculoskeletal: No Edema
Skin: Warm and Dry; No Rash
Neuro: AO x 3 and Nonfocal/grossly intact
Psych: Calm
Laboratory Results
-
02/17/25 03:20
02/17/25 03:20
Laboratory Results
Total Bilirubin 0.4 mg/dl (0.2-1.3) 02/17/25 03:20
AST 16 U/L (17-59) L 02/17/25 03:20
ALT 14 U/L (0-50) 02/17/25 03:20
Alkaline Phosphatase 67 U/L (38-126) 02/17/25 03:20
Lipase 141 U/L (23-300) 02/17/25 03:20
Data Reviewed
-
CT Scan: Report Reviewed by me
Lab Data: Labs Reviewed by me
Old Records: Reviewed
Impression/Plan
-
IMPRESSION:
75M with h/o AFIB s/p ablation and now s/p PPM and LV appendage occlusion not anticoagulated, CAD, HTN, CHF midly reduced EF presenting with abdominal pain with CT scan showing acute pancreatitis without necrosis, edema or abscess. Lipase is
normal. LFTs normal. No ductal dilation mentioned and no gall stones. Reports drinking 3 bottles of light beer 3 days prior. Denies regular alcohol intake. Reports no alcohol intake during his prior episode of pancreatitis. Had a very short
episode at that time not requiring hospitalization and suspect similar course again.
PLAN:
Acute pancreatitis - History not c/w alcholic pancreatitis as described by patient. No stones. No trauma. Normal LFTs.
- admit to med/surg
- Clear liquid diet, adjust as tolerated
- maintenance fluids, discontinue if tolerating diet
- IV pain control and antiemetics
- check triglyceride levels
- GI consult for recurrent pancreatitis without obvious course
AFIB - s/p ablation and now ppm dependent. No rate agents. S/P watchman
- routine vitals, no tele
CAD
- continue aspirin 81
CHF - euvolemic, on prn furosemide
- daily weight
- continue lisinopril
DVT PPX - lovenox sq
Code Status - SCDs
[2025-02-17 07:28] VITALS: BP 139/67
[2025-02-17] MEDS: ZESTRIL 5 MG PO (08:03)
[2025-02-17] MEDS: ASPIR LOW (ENTERIC COATED) 81 MG PO (08:03)
[2025-02-17 09:10] LABS: Triglycerides 102 mg/dl (10-149)
[2025-02-17] MEDS: NSS 1000 IV ×2 (09:43→15:44)
[2025-02-17 11:03] VITALS: BP 129/67
[2025-02-17] MEDS: TYLENOL 650 MG PO (11:32)
--- NOTE | 2025-02-17 12:02 | CON.GI ---
Consultation
-
Date/Time Consultation Requested: 02/17/25 7:15am
Date/Time Consultation Performed: 02/17/25 12:30pm
Requesting Provider: Rylee Elliott
Performing Provider: Fercho Brown
Reason for Consultation: Pancreatitis
Medical History
Chief Complaint / HPI
Chief Complaint: pancreatitis
History of Present Illness:
Patient is a 75-year-old male who presents with mild abdominal discomfort over the last several days. He had a similar attack back in 2022 in September and outpatient workup then showed mild pancreatitis on his CAT scan. He was sent to the ER where
LFTs and lipase were normal and ultrasound was negative. At that time he did reports drinking 3 beers about a week earlier which was stated to be unusual for him. This admission he reports drinking 2 beers on Friday. He denies any new medication
and only takes lisinopril and aspirin. He denies any family history of pancreatic cancer. He reports only drinking occasionally and is reluctant to quit completely as his only vice currently. He does report prior heavy alcohol history drinking a
bottle of vodka in 4 days back then.
Past Medical History
Past Medical History: Arrhythmias (paroxysmal atrial fib/flutter), CAD, CHF and HTN
Past Surgical History: Cardiac (pacer, stent, PVI ablations) and Orthopedic (L TKA, shoulder, hand)
Social History
Tobacco: Former Smoker
Alcohol: Former
Family History
Family History: Reviewed & Not Pertinent
Allergies / Home Medications
Allergy/AdvReac Type Severity Reaction Status Date / Time
amiodarone Allergy sleeplessness, Verified 02/17/25 02:56
acid reflux
azithromycin Allergy Loss of Verified 02/17/25 02:56
smell,
loss of
taste,
metal
taste in
mouth
dofetilide [From Tikosyn] Allergy GERD Verified 02/17/25 02:56
Iodinated Contrast Media Allergy Itching Verified 02/17/25 02:56
[Iodinated Contrast- Oral
and IV Dye]
iodine Allergy Itching Verified 02/17/25 02:56
�Medication �Instructions �Recorded
latanoprost 0.005 % eye drops 1 drp BOTH EYES HS Eye Condition 04/17/23
aspirin 81 mg tablet,delayed 81 mg PO DAILY Blood Clot 10/03/23
release Prevention/Tx
tadalafil 5 mg tablet 5 mg PO DAILYPRN PRN ED 04/08/24
Lactobac no.2-Bifidobac no.1-S. 2 cap PO DAILY 12/21/24
thermo 112.5 billion cell capsule
(Visbiome)
acetaminophen 500 mg tablet 1,000 mg PO BID Pain 12/21/24
lisinopril 5 mg tablet 5 mg PO DAILY 12/28/24
ibuprofen 200 mg tablet (Advil) 200 mg PO DAILY 02/17/25
Review of Systems
-
All other systems: A 12 pt ROS was Negative except as stated above in HPI
Vital Signs
Temp Pulse Resp BP Pulse Ox
97.7 F 89 18 129/67 97
02/17/25 11:03 02/17/25 11:03 02/17/25 11:03 02/17/25 11:03 02/17/25 11:03
Physical Exam
Exam
General: No Apparent Distress
HEENT: Normocephalic and Atraumatic
Respiratory: Non Labored Respirations
GI: Soft and Tender (mild epigastric tenderness)
Skin: Warm and Dry
Results
WBC 11.0 10^3/uL (4.8-10.8) H 02/17/25 03:20
Hgb 12.6 g/dL (13.0-18.0) L 02/17/25 03:20
Hct 39.8 % (39.0-52.0) 02/17/25 03:20
MCV 87.9 fL (80.0-94.0) 02/17/25 03:20
Plt Count 208 10^3/uL (130-400) 02/17/25 03:20
Absolute Neuts (auto) 7.6 10^3/uL (1.4-6.5) H 02/17/25 03:20
Sodium 140 mmol/L (135-145) 02/17/25 03:20
Potassium 4.8 mmol/L (3.5-5.1) 02/17/25 03:20
Chloride 108 mmol/L (98-107) H 02/17/25 03:20
Carbon Dioxide 25 mmol/L (22-30) 02/17/25 03:20
BUN 30 mg/dl (9-20) H 02/17/25 03:20
Creatinine 0.9 mg/dL (0.7-1.3) 02/17/25 03:20
Calcium 9.4 mg/dl (8.4-10.2) 02/17/25 03:20
Total Bilirubin 0.4 mg/dl (0.2-1.3) 02/17/25 03:20
AST 16 U/L (17-59) L 02/17/25 03:20
ALT 14 U/L (0-50) 02/17/25 03:20
Alkaline Phosphatase 67 U/L (38-126) 02/17/25 03:20
Lipase 141 U/L (23-300) 02/17/25 03:20
Diagnostic Image Results:
Prior GI Procedures:
EGD:
Colonoscopy:
Assessment / Plan
-
Summary: 75yo male presents with mild epigastric pain similar to attack of pancreatitis in September 2023. During that admission US, LFT, lipase normal but CT showed pancreatitis. Drank 3 beers prior to that attack. This episode he drank 2 beers
02/14 [employer]. He admits drinking heavily in the past, vodka. Again this admission, LFTs, lipase normal. No new meds. No FH pancreatic CA
02/17/25 CT AP w IV- Subtle stranding of fat head of pancreas. Subtle nodular contour anterior liver suggestive of cirrhosis. Spleen top normal 12.2cm
10/03/23 CT AP w/o contrast- Peripancreatic inflammatory stranding inferior head/uncinate. Biliary sludge in GB. Probable mild IHDD
Impression:
Epigastric pain
CT findings of pancreatitis with normal labs
Hx EtOH
Borderline findings cirrhosis on CT
Recommendations:
Check US to rule out GS
Check TG, EMILIANO, IgG4
Cont aggressive IVF
Advance diet as tolerated
I advised quitting alcohol completely given 2 bouts of pancreatitis and his hx heavy EtOH in past. He is reluctant
F/U in office for Fibroscan to assess for fibrosis/cirrhosis
-
-
Thank you for consultation and allowing me to participate in the patient's care. Please call the [employer] dedicated [employer] GI physician during the after hours with any questions or concerns.
--- NOTE | 2025-02-17 14:35 | CM ---
Patient seen at bedside
explained role of CM
IA completed
Lives with and son in a 1st floor apartment, no steps
PLOF: independent
DME: [employer] [employer]
Denies VN/has had outpatient rehab in past
Denies insecurities
PCP: Sebastian Anthony
Pharmacy: [facility]
PLAN: Home, no needs anticipated when medically stable
[2025-02-17 14:52] VITALS: BP 125/65
[2025-02-17] MEDS: PROTONIX 40 MG PO (17:20)
--- NOTE | 2025-02-17 18:21 | PTCARENOTE ---
Received patient from ED in bed. AAOX3 able to make needs known. Family member at bedside. PRN Morphine administered for abdominal pain 07/15. PRN Tylenol administered for headache with + effects. Patient noted to be agitated in general about
hospital stay. Patient's agitation increased when IVF were hung. Patient stated that it will only cause him to 'retain fluids', patient with PMH HF. MD made aware of patient concerns and new order for IVF rate decreased placed. Patient sent for ABD
US. Upon arrival back to room IVF at a decreased rate reconnected. Patient stated being agitated about IVF and the need for them. Patient was educated on treatment for pancreatitis as well as receiving IVF while NPO. Patient visually agitated and
stated wanting a new hospitalist and no further fluids. MD made aware. Fluids capped and patient remains NPO. Call kemp within reach.
[2025-02-17 23:00] VITALS: BP 130/73
[2025-02-18] MEDS: NSS IV (03:04)
[2025-02-18 06:41] LABS: % Basophils 0.8 % (0-2); % Eosinophils 3.7 % (0-6); % Immature Granulocytes 0.3 % (0-0.5); % Lymphocytes 15.5 % (20.5-51.1); % Monocytes 12.5 % (1.7-9.3); % Neutrophils 67.2 % (42.2-75.2); Absolute Basophils 0.1 10^3/uL (0-0.2); Absolute Eosinophils 0.3 10^3/uL (0-0.7); Absolute Lymphocytes 1.4 10^3/uL (1.2-3.4); Absolute Monocytes 1.1 10^3/uL (0.1-0.6); Absolute Neutrophils 5.9 10^3/uL (1.4-6.5); Hematocrit 35.9 % (39.0-52.0); Hemoglobin 11.5 g/dL (13.0-18.0); Mean Corpuscular Hgb 28.3 pg (27.0-31.0); Mean Corpuscular Volume 88.4 fL (80.0-94.0); Mean Platelet Volume 9.4 fL (7.4-10.4); Nucleated Red Blood Cells % 0 % (-); Platelet Count 179 10^3/uL (130-400); Red Blood Cell Count 4.06 10^6/uL (4.70-6.10); Red Cell Dist. Width 15.4 % (11.5-14.5); White Blood Cell Count 8.8 10^3/uL (4.8-10.8)
[2025-02-18 07:34] LABS: ALT (SGPT) 12 U/L (0-50); AST (SGOT) 14 U/L (17-59); Albumin 3.6 g/dl (3.5-5.0); Alkaline Phosphatase 58 U/L (38-126); Blood Urea Nitrogen 14 mg/dl (9-20); Calcium 8.6 mg/dl (8.4-10.2); Carbon Dioxide 28 mmol/L (22-30); Chloride 108 mmol/L (98-107); Glucose 105 mg/dl (70-99); Lipase 61 U/L (23-300); Potassium 4.1 mmol/L (3.5-5.1); Sodium 137 mmol/L (135-145); Total Bilirubin 0.7 mg/dl (0.2-1.3); Total Protein 6.2 g/dl (6.3-8.2); eGFR > 60.00
[2025-02-18] MEDS: ASPIR LOW (ENTERIC COATED) 81 MG PO (07:40)
[2025-02-18] MEDS: TYLENOL 650 MG PO (07:40)
[2025-02-18] MEDS: ZESTRIL 5 MG PO (07:43)
[2025-02-18 07:44] VITALS: BP 121/65
--- NOTE | 2025-02-18 11:39 | W.PN.HOSP.TC ---
Today's Communication/Plan
-
low fat diet
if OK d/c
Assessment / Plan
Assessment / Plan
pt is a 75 year old male
Acute pancreatitis - History not c/w alcoholic pancreatitis-- 2 beers Friday02/14/25--No stones--No trauma--Normal LFTs--pt hungry and without pain--refused IVF--trig WNL--autoimmune labs pending--passed stone? --low fat diet--if tolerates, d/c
paroxysmal AFIB - s/p ablation and now ppm dependent. No rate agents. S/P watchman
CAD- continue aspirin 81
HFpEF--no exacerbation- euvolemic, on prn furosemide- daily weight- continue lisinopril
DVT Proph - lovenox sq
Code Status - SCDs
Anticipated Discharge: Today
Subjective/Interval History
-
Date of Service: February 18, 2025
pt feeling much improved
Objective Data
-
Labs:
Laboratory Results
02/18/25
06:19
WBC 8.8
Hgb 11.5 L
Hct 35.9 L
Plt Count 179
Sodium 137
Potassium 4.1
Chloride 108 H
Carbon Dioxide 28
BUN 14
Creatinine 0.7
Glucose 105 H
Calcium 8.6
Total Bilirubin 0.7
AST 14 L
ALT 12
Alkaline Phosphatase 58
Vital Signs:
max temp for 24 hours
02/18/25
07:44
Temp 98.5 F
Vital Signs
Temp Pulse Resp BP Pulse Ox
98.5 F 86 18 121/65 95
02/18/25 07:44 02/18/25 07:44 02/18/25 07:44 02/18/25 07:44 02/18/25 07:44
Review of Systems
-
All other systems: Reviewed and negative
Abdomen/GI: Reports Abdominal Pain (improved); Denies Nausea or Vomiting
Physical Exam
-
General: Well Developed, Well Nourished and No Apparent Distress
HEENT: Normocephalic and Atraumatic
Respiratory: Clear to Auscultation; Negative Wheezes or Rhonchi
Cardiac: Regular Rhythm and S1/S2; Negative Murmur
GI: Soft, Nontender, Nondistended and Normal Bowel Sounds
Musculoskeletal: No Clubbing, No Cyanosis and No Edema
Skin: Warm
Neuro: Awake
Psych: Calm
--- NOTE | 2025-02-18 12:13 | CM ---
Addendum entered by Rae Gibbons 02/18/25 12:14:
correction: BLANCA form in chart
Original Note:
Patient seen at bedside.
IMM explained & signed. In chart
no needs, discharge today
PLAN: Home no needs
daughter to transport
--- NOTE | 2025-02-18 15:06 | W.DCSUMMARY ---
Discharge Summary
Discharge Data
Date of Admission: 02/17/25
Date of Discharge: 02/18/25
-
Pending Results: Yes
Additional Pending Results:
IgG4 and EMILIANO IgG pending
Hospital Course
Primary care physician : Sebastian Anthony
Principal Discharge diagnosis : Acute pancreatitis
Chronic Discharge diagnosis : Paroxysmal atrial fibrillation, coronary artery disease, heart failure with preserved ejection fraction without exacerbation
Hospital Course : Patient was a 75-year-old male with a history of paroxysmal atrial fibrillation status post pulmonary vein isolation and pacemaker placement with recent Watchman procedure now off anticoagulation who developed abdominal pain that
feels like a 'knot' in the center of his abdomen. He had an associated headache which resolved with Tylenol but the abdominal pain persisted. He had mild nausea but no vomiting. He was not having any diarrhea or flank pain. He denied having
fevers or chills. Patient reported he drank 3 bottles of light beer on Friday, February 14, 2025 but did not develop abdominal pain until , February 17, 2025. He drinks occasionally. His last episode of pancreatitis was not associated with alcohol
as he stated that it was not related to any alcohol intake. Patient was found to have normal LFTs and lipase and patient was admitted.
Problem #1: Acute pancreatitis. Patient was admitted and seen in consultation by GI. Lipase was normal and LFTs were normal. Patient describes 2-3 bottles of light beer on Friday but his symptoms did not start until this past . CAT scan
showed stranding of the fat around the head of the pancreas suggesting pancreatitis. Abdominal ultrasound was then done which showed no findings to suggest acute cholecystitis or gallstones. Patient's pain is much improved today. He actually
refused IV fluids due to his concern about heart failure. Patient was given a low-fat diet and is stable for discharge after tolerating it. Workup is still pending for secondary causes including EMILIANO IgG and IgG subclass 4. However, this may be
related to his lisinopril and it is known to cause pancreatitis. Patient states that he placed himself back on lisinopril within the last month due to slightly elevated blood pressures at home. I have called and discussed with the patient that he
should speak to his primary care physician regarding another blood pressure medication if his blood pressure continues to be elevated.
Problem #2: All other medical issues. These include Paroxysmal atrial fibrillation, coronary artery disease, heart failure with preserved ejection fraction without exacerbation. These medical issues were stable during his hospitalization.
Medications were continued as able.
Patient is stable for discharge home at this time. If there are any questions regarding this dictation or his hospital stay, please not hesitate to call. Our office number is [phone].
Important imaging findings :
CT SCAN ABDOMEN/PELVIS IMPRESSION: Subtle stranding of the fat involving the head of the pancreas, suggestive of pancreatitis, although the patient has a normal lipase value. There is no evidence for macroscopic necrosis. No evidence for a focal
collection.
Normal appearance of the gallbladder with no evidence for biliary ductal dilation.
Subtle nodular contour to the anterior liver with slight hypertrophy of the lateral segment and caudate lobe. Findings are suggestive of cirrhosis. No evidence for a focal hepatic lesion.
Spleen has maximum dimension of 12.2 cm, in the upper range of normal.
Focal pericardial calcification, stable prior examination.
Mild increased peripheral interstitial markings within the lower lungs, stable, and likely mild interstitial fibrosis, with no evidence for honeycombing.
Bony degenerative changes as described.
ABDOMINAL ULTRASOUND IMPRESSION: Small gallbladder polyp versus sludge ball. No secondary findings to suggest acute cholecystitis. New
Mild gallbladder sludge. New
Hepatic fatty infiltration. Stable
Discharge Plan
-
Patient Disposition: Home (Routine Discharge)
Discharge Diagnosis/Procedures: Acute pancreatitis (unclear cause--possibly related to Scotty I), paroxysmal atrial fibrillation, history of coronary artery disease, heart failure with preserved ejection fraction
Condition: Good
Diet: Low Fat
Additional Diets: No alcohol
Activity: As tolerated
Driving Restrictions: As prior to admission
Bathing Restrictions: None
Referrals:
UNKNOWN - PT DOES,NOT KNOW [Family Provider] - in less than 1 week
Additional Discharge Medication Instructions: stop omeprazole--changing to pantoprazole
Prescriptions:
New
pantoprazole 40 mg Tablet,Delayed Release (Dr/Ec)
40 mg PO QPM Qty: 30 0RF
Continued
latanoprost 0.005 % Drops
1 drp BOTH EYES HS
aspirin 81 mg Tablet,Delayed Release (Dr/Ec)
81 mg PO DAILY
tadalafil 5 mg Tablet
5 mg PO DAILYPRN PRN (Reason: ED)
acetaminophen 500 mg Tablet
1,000 mg PO BID
Visbiome 112.5 billion cell Capsule
2 cap PO DAILY
lisinopril 5 mg Tablet
5 mg PO DAILY Qty: 0 0RF
Discontinued
ibuprofen [Advil] 200 mg Tablet
200 mg PO DAILY
Discharge Orders:
Discharge Patient (As Directed); Ordered 02/18/25
Ordered By: Sharonda Blanco
Discharge Date and Time
Discharge Date/Time: 02/18/25 13:49
Print Language: [place]
== END 2025-02-18 13:49 | disposition home or self-care (01) ==
LOC: 3 WEST ACU 07:19
PROVIDERS: Nurse Practitioner Family; ADMITTING PHYSICIAN Internal Medicine; ATTENDING PHYSICIAN Internal Medicine; CONSULT PHYSICIAN Specialist; EMERGENCY PHYSICIAN Emergency Medicine
DX: K85.90 Acute pancreatitis without necrosis or infection, unspecified (principal); R10.9 Unspecified abdominal pain; M54.9 Dorsalgia, unspecified; G47.30 Sleep apnea, unspecified; I50.32 Chronic diastolic (congestive) heart failure; I11.0 Hypertensive heart disease with heart failure; E11.9 Type 2 diabetes mellitus without complications; E66.9 Obesity, unspecified; I48.4 Atypical atrial flutter; M41.84 Other forms of scoliosis, thoracic region; M41.86 Other forms of scoliosis, lumbar region; R51.9 Headache, unspecified; I25.10 Atherosclerotic heart disease of native coronary artery without angina pectoris; K82.8 Other specified diseases of gallbladder; K76.0 Fatty (change of) liver, not elsewhere classified; M19.90 Unspecified osteoarthritis, unspecified site; I48.0 Paroxysmal atrial fibrillation; Z83.79 Family history of other diseases of the digestive system; Z95.5 Presence of coronary angioplasty implant and graft; Z96.652 Presence of left artificial knee joint; Z87.01 Personal history of pneumonia (recurrent); Z87.19 Personal history of other diseases of the digestive system; Z91.041 Radiographic dye allergy status; Z87.891 Personal history of nicotine dependence; Z79.82 Long term (current) use of aspirin; Z95.0 Presence of cardiac pacemaker; Z88.8 Allergy status to other drugs, medicaments and biological substances; Z88.1 Allergy status to other antibiotic agents
CPT/HCPCS: 74177; 76700; 80053; 82787; 83690; 84478; 85025; 86038; 96361; 96374; 96375; 99284; Q9967

== ENCOUNTER 2025-03-21 09:51 | Inpatient (IN) | payer MEDICARE, OTHER, SELFPAY ==
[2025-03-20] VITALS (9 sets, daily range): BP systolic 99–158; BP diastolic 55–73; BMI 34.5
--- NOTE | 2025-03-20 03:10 | EDRN ---
patient arrived to be triaged by EMS, and before patient got off ems stretcher to a wheelchair, this RN heard pt complaining to EMS that he did not want to wait. I explained to the pt that we're very busy at the present time, and he will be triaged
as soon as possible. He will then be brought back to a room when one is clean and available. While this RN was obtaining blood work from another patient, pt yelled, 'This is fucking ridiculous.,' I explained again to the patient to not use that kind
of language or yell, and he will get a room when one is available. The PT kept yelling, 'I see half those rooms empty, just put me in one of those.' The RN asked the patient again to stop yelling and explained to patient that the rooms may be empty
because there is not a nurse assigned to that section so patients cannot be placed in those rooms. The PT then yelling, 'well then maybe you should hire more people so there is more nurses here.' I explained to the patient that the staffing of the
department is not my responsibility and asked patient again to stop yelling. The PT began speaking in a more calm manner and asked the RN how she puts up with it and stated he would never come back to work if he had to put up with it. The PT again
began complaining that he doesn't want to wait and that the EMS providers should have told him we were busy so he could have gone to another hospital. I explained to the patient that all the surrounding hospitals are also busy and it is the EMS's
job to transport the patient to the closest hospital for care. At this point, PT was no longer yelling and stated that he was having anxiety from what was going on with him. The RN was then able to begin to triage the patient, and the PT reported
that he was feeling lightheaded from the anxiety, and was then placed on a stretcher in protocol and PIV was established, and blood work was obtained until a room was available for the patient.
[2025-03-20 03:29] LABS: % Basophils 0.6 % (0-2); % Eosinophils 2.2 % (0-6); % Immature Granulocytes 0.4 % (0-0.5); % Lymphocytes 22.6 % (20.5-51.1); % Monocytes 12.4 % (1.7-9.3); % Neutrophils 61.8 % (42.2-75.2); Absolute Basophils 0.1 10^3/uL (0-0.2); Absolute Eosinophils 0.2 10^3/uL (0-0.7); Absolute Lymphocytes 2.1 10^3/uL (1.2-3.4); Absolute Monocytes 1.2 10^3/uL (0.1-0.6); Absolute Neutrophils 5.7 10^3/uL (1.4-6.5); Hematocrit 39.7 % (39.0-52.0); Hemoglobin 12.7 g/dL (13.0-18.0); Mean Corpuscular Hgb 28.7 pg (27.0-31.0); Mean Corpuscular Volume 89.6 fL (80.0-94.0); Mean Platelet Volume 9.6 fL (7.4-10.4); Nucleated Red Blood Cells % 0 % (-); Platelet Count 181 10^3/uL (130-400); Red Blood Cell Count 4.43 10^6/uL (4.70-6.10); Red Cell Dist. Width 14.8 % (11.5-14.5); White Blood Cell Count 9.3 10^3/uL (4.8-10.8)
[2025-03-20 03:48] LABS: ALT (SGPT) 17 U/L (0-50); AST (SGOT) 20 U/L (17-59); Albumin 3.9 g/dl (3.5-5.0); Alkaline Phosphatase 67 U/L (38-126); Blood Urea Nitrogen 35 mg/dl (9-20); Calcium 9.2 mg/dl (8.4-10.2); Carbon Dioxide 25 mmol/L (22-30); Chloride 109 mmol/L (98-107); Glucose 120 mg/dl (70-99); Lipase 242 U/L (23-300); Sodium 141 mmol/L (135-145); Total Bilirubin 0.5 mg/dl (0.2-1.3); Total Protein 6.8 g/dl (6.3-8.2); eGFR > 60.00
--- NOTE | 2025-03-20 04:03 | FALL ---
Description of Fall:
Injuries Noted:
Action Taken:
Name of Provider Notified:
--- NOTE | 2025-03-20 04:04 | EDRN ---
Pt thinks he might be having pancreatitis but is not sure. Pt says difference is pain is in abdomen and back. Pt says pain in his back only occurs when he moves a certain way and sometimes takes his breath away. Pt says it is there now but is
'not that bad.' Pain started early evening back pain. When pt went to sleep, his abdomen started hurting. Pt slept for about 1 hour. Pt tried to move and pain in back worsened and he was unable to get back to sleep. No nausea, vomiting,
diarrhea/constipation, cp, fever/chills/cough, urinary symptoms. Pt took 1 advil before he came to ED and tylenol at 2100. Appetite normal.
--- NOTE | 2025-03-20 04:11 | EDRN ---
Pt shaking his head while this RN examined him. Deep breathing, hyperventilating - coached on breathing. Offered to reposition pt multiple times but he declined. Informed pt his lab work has been resulted and Dr Jones will be in to see him.
Pt asked how much longer, explained doctor will be in as soon as possible. Pt yelled at this RN 'that doesn't help my anxiety!' Asked pt what this RN can do to help him with his anxiety and he yelled 'give me some medicine!' Informed pt he must
be seen by the doctor first and the doctor will order medications if needed, that nurses can not just give medication. Oriented pt to call kemp, offered to dim/turn off lights, more warm blankets, something soothing on TV. Pt declined everything.
'Thank you for your kindness though' pt said.
[2025-03-20] MEDS: ZOFRAN 4 MG IV (04:38)
[2025-03-20] MEDS: BENADRYL 50 MG IV (04:40)
[2025-03-20] MEDS: SOLU-CORTEF 200 MG IV (04:44)
[2025-03-20] MEDS: MORPHINE SULFATE 4 MG IV (04:48)
--- NOTE | 2025-03-20 07:15 | ED.GENMED ---
History of Present Illness
General
Chief Complaint: Abdominal Pain
Source: patient
Exam Limitations: none
Time Seen by Provider: 03/20/25 03:57
Nursing documentation reviewed up to this point in time: agreed with
History of Present Illness
History of Present Illness:
The patient is a 75-year-old individual presenting with abdominal pain and concurrent back pain. The symptoms started with back pain in the early evening. The abdominal pain is described as being present when the patient moves in a certain way, with
a baseline pain level of 6 on a scale of 1 to 10, increasing to 8 or 9 upon compression. The patient denies being a current or past drinker and has high cholesterol. The patient has a history of cardiac issues, specifically mentioning being
pacemaker-dependent and having valve issues. They have experienced anxiety and report 'pins and needles' in the left arm, with tightness described as 'pathetic' in the top of the arm. The patient denies current chest pain but reports episodes of
atrial flutter typically detected through the pacemaker. A pacemaker has been in place, and the patient has had an ablation. They do not use blood thinners, having had a Watchman device placed.
Note:
CHIEF COMPLAINT(S)
Abdominal pain and back pain.
ADDITIONAL HISTORY OBTAINED FROM SOURCES OTHER THAN THE PATIENT
Per EMS: The tent worker noted that consistent pain in the abdomen and back could indicate a more severe issue.
CHRONIC MEDICAL CONDITIONS SIGNIFICANTLY AFFECTING CARE
The patient has significant cardiac conditions, including being pacemaker-dependent, with a history of valve issues and atrial flutter.
ALLERGIES
The patient reports an allergy to contrast dye, resulting in an itchy scalp.
MEDICATIONS
The patient is not on blood thinners.
REVIEW OF SYSTEMS
- Cardiovascular: History of heart issues, pacemaker dependence, valve issues, atrial flutter.
- Neurological: Pins and needles sensation in the left arm.
- Gastrointestinal: Abdominal pain.
- Musculoskeletal: Back pain concurrent with abdominal pain.
PROBLEM LIST
- Acute: Abdominal and back pain, anxiety, tingling sensation in the left arm.
- Chronic: Pacemaker-dependent heart issues, valve disease, episodes of atrial flutter.
PLAN
- Administer morphine for pain management and anti-nausea medication prophylactically.
- Premedicate for allergy to contrast dye before conducting a CT scan.
DIFFERENTIAL DIAGNOSIS
The Differential Diagnosis includes, in no particular order and is not limited to:
1. Pancreatitis
2. Gallbladder disease
3. Peptic ulcer disease
4. Gastroesophageal reflux disease
5. Cardiac ischemia
6. Aortic aneurysm
7. Kidney stones
8. Pulmonary embolism
9. Musculoskeletal strain
10. Gastroenteritis
CARE-UPDATE
03/20/25 - 06:56
Patient has been admitted for mild acute pancreatitis based on the CAT scan results and level pain. Current plan includes administration of fluids and pain management. Patient expresses a concern for fluid retention and requests diuretics due to
previous experiences with insufficient urination and noticeable fluid retention. Patient occasionally self-administers diuretics when observing rapid weight gain due to fluid retention, losing approximately 4-5 pounds overnight. No catheterization
is planned. The team is advised to monitor fluid retention and contribute to investigating the underlying cause during hospitalization. Pain is currently tolerable but anticipated to escalate as morphine effects wane, though additional dosing is
deferred at present. Patient denies any cardiac or aortic aneurysm concerns. The source of back pain remains uncertain, but it might be linked to pancreatitis.
Past History
Past History
ED Past Medical History: Arrthythmia (Atrial fib), CHF, GERD, HTN, NIDDM and Other (PNA, Sleep apnea, Diverticulitis, Pancreatitis, Glaucoma, )
ED Past Surgical History: Cardiac (Ablation X 5, Stents X 2, Cardiac ablation with Watchman procedure 08/09/24) and Orthopedic (Left hand surgery, Left shoulder surgery. Left total knee replacement)
Social History
Tobacco: Former smoker
Alcohol: Occasional
Drug: None
Personal:
Living: with family
Employment: Retired
Family History
Family History: Other (Noncontributory)
Review of Systems
Review of Systems
Allergies reviewed?: Yes
All Other Systems: ROS reviewed and negative except as documented in HPI and ROS
ABD/GI: Reports abdominal pain; Denies nausea, vomiting, diarrhea or constipated
Phy Exam
General Physical Exam
General Presentation: moderate distress
General age: appears stated age
General Skin: warm and dry
General Habitus: normal
General Mental: alert
General Hydration: appears well hydrated
ENT Exam
ENT Exam: EOMI, pharynx normal, neck supple and normocephalic
Eye Exam
Eye Exam: PERRL, cornea clear and conjunctiva normal
Cardiovascular Exam
Cardiovascular Exam: regular rate/rhythm, no edema, no murmur and normal peripheral pulses
Pulmonary Exam
Pulmonary Exam: lungs clear, no respiratory distress, no rales, no crackles, no rhonchi, no stridor, no wheezing and no cough
Gastrointestinal Exam
Gastrointestinal Exam: normal bowel sounds, soft, no organomegaly, no pulsatile mass and non distended
Palpation: left upper quadrant: Minimal tenderness and right upper quadrant: Minimal tenderness
Neurological Exam
Neurological Exam: alert, oriented x3, no motor deficits and speech normal
Musculoskeletal Exam
Musculoskeletal Exam: full ROM and no edema
Skin Exam
Skin Exam: normal color, warm/dry, no rash and no petechia
Psychiatric Exam
Psychiatric Exam: normal mood/affect
Course
Orders/Labs/Results
Orders:
Orders
03/20/25 03:17
Complete Blood Count/With Diff Urgent
Comprehensive Metabolic Panel Urgent
Lipase Urgent
03/20/25 04:28
Diphenhydramine [Benadryl] 50 mg IV NOW STA
Hydrocortisone Sod Succinate [Solu-Cortef] 200 mg IV NOW STA
Morphine Sulfate 4 mg IV NOW STA
Ondansetron Injectable [Zofran] 4 mg IV NOW STA
03/20/25 04:29
CT Abd/pelvis W Iv Cont Urgent
Comment:
Reason For Exam: upper abd pain, hx of pancreatitis
03/20/25 07:20
Electrocardiogram (*1) Urgent
Reason for Study: Abdominal Pain
EKG- Treatment ONCE
03/20/25 08:00
Lactated Ringers [Lr] 1,000 ml IV 250 mls/hr
Abnormal Lab Results
03/20/25
03:17
RBC 4.43 L 10^6/uL
(4.70-6.10)
Hgb 12.7 L g/dL
(13.0-18.0)
MCHC 32.0 L g/dL
(33.0-37.0)
RDW 14.8 H %
(11.5-14.5)
Absolute Monos (auto) 1.2 H 10^3/uL
(0.1-0.6)
Monocytes % 12.4 H %
(1.7-9.3)
Chloride 109 H mmol/L
(98-107)
BUN 35 H mg/dl
(9-20)
Glucose 120 H mg/dl
(70-99)
03/20/25 03:17
03/20/25 03:17
Vital Signs
Initial and Last Documented VS:
Initial Vital Signs
Temp Pulse Resp BP Pulse Ox
98.6 F 67 24 99/72 99
03/20/25 03:06 03/20/25 03:06 03/20/25 03:06 03/20/25 03:06 03/20/25 03:06
Last Documented Vital Signs
Temp Pulse Resp BP Pulse Ox
98.6 F 60 16 132/59 99
03/20/25 03:06 03/20/25 05:00 03/20/25 05:00 03/20/25 05:00 03/20/25 05:00
*Radiology
Radiology exam reviewed: radiology read reviewed
*Pulse Oximetry
Patient hypoxic: no
*Critical Care Note
Total Time (30-74mins, 75-104mins- exclusive of procedures): Not Applicable
comment:
IMPRESSION:
1. Mild hepatic cirrhosis.
2. Mild intrahepatic biliary dilatation.
3. Possible mild acute interstitial edematous pancreatitis.
4. Chronic granulomatous disease infection in the spleen and liver.
5. Mild chronic bilateral renal disease.
6. Severe calcific atherosclerotic plaque in the abdominal aorta.
7. Moderate diverticulosis in the descending and sigmoid colon.
8. 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
9. Moderate multilevel discogenic degenerative disease and facet joint arthrosis in the lumbar spine.
ED Attending Note
-
Portions of this chart may have been created with voice recognition software.� Occasional wrong word or��sound alike� substitutions may have occurred due to the inherent limitations of voice recognition software.
Discharge Plan
Departure
Patient Disposition: Admit
Date of Disposition: 03/20/25
Time of Disposition: 07:18
Admit to: Telemetry
Presentation/result/management discussed w/ accepting MD/DO: Hospitalist
Condition: Good
Discharge Problem:
Acute pancreatitis, Hepatic cirrhosis
Prescriptions:
No Action
latanoprost 0.005 % Drops
1 drp BOTH EYES HS
aspirin 81 mg Tablet,Delayed Release (Dr/Ec)
81 mg PO DAILY
tadalafil 5 mg Tablet
5 mg PO DAILYPRN PRN (Reason: ED)
acetaminophen 500 mg Tablet
1,000 mg PO BID
Visbiome 112.5 billion cell Capsule
2 cap PO DAILY
losartan 50 mg Tablet
50 mg PO DAILY
fexofenadine [Meka] 180 mg Tablet
180 mg PO DAILY
Referrals:
Sebastian Anthony DO [Family Provider, Family Practice]
Interventions
Interventions:
*Risk Screen - Suicide Last Done: 03/20/25 03:06
*General Assessment Last Done: 03/20/25 03:06
*Neglect/Abuse Screening Last Done: 03/20/25 03:06
*ED- Fall Risk Assessment Last Done: 03/20/25 03:59
EG-[id number] Assessment Last Done: 03/20/25 04:11
Discharge Date and Time
Print Language: SIN[place]
--- NOTE | 2025-03-20 07:48 | HPS.HSE ---
Family Physician
-
Family Physician: Sebastian Anthony
Chief Complaint
-
Abdominal pain
History of Present Illness
This is a 75-year-old with past medical history of atrial fibrillation status post PVI, s/p PPM and PPM dependent, recently status post Watchman procedure now off anticoagulation, hypertension, CHF mildly EF, CAD presenting to the emergency
department with with abdominal pain and back pain, patient was here recently on February 17 and discharged on 02/18 with acute pancreatitis, seen by GI, back then lisinopril discontinued, patient drink 2 beers once a week, last drink was evening,
also takes Lasix at home as needed for weight gain and shortness of breath.
Patient had Lasix yesterday morning.
Pain started on the back then epigastric area, denies any chest pain or shortness of breath, underlying anxiety but otherwise no nausea or vomiting
Initial blood work in the ER came back unremarkable, lipase normal, but CT abdomen/pelvis showed:
1. Mild hepatic cirrhosis.
2. Mild intrahepatic biliary dilatation.
3. Possible mild acute interstitial edematous pancreatitis.
4. Chronic granulomatous disease infection in the spleen and liver.
5. Mild chronic bilateral renal disease.
6. Severe calcific atherosclerotic plaque in the abdominal aorta.
7. Moderate diverticulosis in the descending and sigmoid colon.
8. 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
9. Moderate multilevel discogenic degenerative disease and facet joint arthrosis in the lumbar spine.
Patient will be admitted under hospitalist service.
Medical History
Past Medical History
Past Medical History: Reports Other
Additional Past Medical History:
SVT
Paroxysmal Atrial Fibrillation
Atypical Atrial Flutter
ASCVD
Chronic HFpEF
Hypertension
DJD / OA
Obesity
Past Surgical History: Reports Other
Additional Past Surgical History:
PPM Placement (06/02/24)
PTCA with Stent (April 2024)
PVI Ablations x multiple
Left TKA
Left Shoulder Surgery
Left Hand Surgery
Social History
Tobacco: Non-smoker
Alcohol: Occasional
Drug: None
Family History
Family History: Not pertinent and Other (Unable to confirm with patient.)
Allergies / Home Medications
Allergies reflects when Allergies were last updated in [facility].
Home Medications with original date entered in [facility]
Allergy/Medication List:
Allergies
Allergy/AdvReac Type Severity Reaction Status Date / Time
amiodarone Allergy sleeplessness, Verified 03/20/25 04:00
acid reflux
azithromycin Allergy Loss of Verified 03/20/25 04:00
smell,
loss of
taste,
metal
taste in
mouth
dofetilide (From Tikosyn) Allergy GERD Verified 03/20/25 04:00
Iodinated Contrast Media Allergy Itching Verified 03/20/25 04:00
(Iodinated Contrast- Oral
and IV Dye)
iodine Allergy Itching Verified 03/20/25 04:00
Home Medications
latanoprost 0.005 % eye drops 1 drp BOTH EYES HS Eye Condition 04/17/23
aspirin 81 mg tablet,delayed release 81 mg PO DAILY Blood Clot Prevention/Tx 10/03/23
tadalafil 5 mg tablet 5 mg PO DAILYPRN PRN ED 04/08/24
Lactobac no.2-Bifidobac no.1-S. thermo 112.5 billion cell capsule (Visbiome) 2 cap PO DAILY 12/21/24
acetaminophen 500 mg tablet 1,000 mg PO BID Pain 12/21/24
fexofenadine 180 mg tablet 180 mg PO DAILY 03/20/25
losartan 50 mg tablet 50 mg PO DAILY 03/20/25
Review of Systems
-
A 12 point ROS was completed and negative except as noted: Yes
Constitutional: Reports Fatigue; Denies Fever, Weight Gain, Weight Loss or Sleep Disturbance
EENT: Denies Tearing, Sore Throat, Mouth Pain, Mouth Swelling or Runny Nose
Respiratory: Denies Cough, Hemoptysis or Trouble Breathing
Cardiac: Denies Chest Pain, Diaphoresis, Palpitations or Syncope
Abdomen/GI: Reports Abdominal Pain; Denies Nausea, Vomiting, Diarrhea, Constipated, Bloody Stools or Black Stools
: Denies Dysuria, Frequency, Flank Pain, Incontinence, Difficulty Voiding, Urgency, Bleeding or Dark Urine
Musculoskeletal: Reports Other (Back pain); Denies Joint Pain, Joint Swelling, Muscle Pain, Muscle Stiffness or Edema
Skin: Denies Itching or Rash
Neurological: Denies Dizzy, Headache, Weakness or Numbness
Endocrine: Denies Polyuria, Polydipsia or Temp Intolerance
Hematologic/Lymphatic: Denies Bleeding, Swollen Glands or Bruising
Psych: Reports Calm; Denies Depression, Anxiety or Panic Disorder
Physical Exam
Vital Signs
Vital Signs
Temp Pulse Resp BP Pulse Ox
98.6 F 60 16 132/59 99
03/20/25 03:06 03/20/25 05:00 03/20/25 05:00 03/20/25 05:00 03/20/25 05:00
Physical Exam
General: Well Developed, Well Nourished, No Apparent Distress, Comfortable and Good Appetite; No Pain, Chills or Sweats
HEENT: NormoCephalic, Moist mucous membranes, Atraumatic, Good Dentition, PERRLA, Nose Appears Normal and Ears Appear Normal
Respiratory: Clear
Cardiac: S1/S2 and Regular Rhythm
Breast: Deferred by me
GI: Soft, Non Distended, Normal Bowel Sounds and Tender
Genito-urinary: Deferred by me
Musculoskeletal: No Clubbing, No Cyanosis, Edema, Left Lower Extremity and Edema, Right Lower Extremity
Skin: Warm; No Rash, Jaundice, Ulcers, Lesions or Decubitus Ulcers
Neuro: Awake, Alert, Oriented, AO x 3, No Motor Deficits, Nonfocal/grossly intact and Cranial Nerves Intact
Hematologic/Lymphatic: No Lymphadenopathy
Psych: Calm
Laboratory Results
-
03/20/25 03:17
03/20/25 03:17
Laboratory Results
Total Bilirubin 0.5 mg/dl (0.2-1.3) 03/20/25 03:17
AST 20 U/L (17-59) 03/20/25 03:17
ALT 17 U/L (0-50) 03/20/25 03:17
Alkaline Phosphatase 67 U/L (38-126) 03/20/25 03:17
Lipase 242 U/L (23-300) 03/20/25 03:17
Data Reviewed
-
Diagnostic Radiology: Report Reviewed by me
CT Scan: Report Reviewed by me
Medical Tests (Nuc Med, Echo, EKG etc): Report Reviewed by me
Lab Data: Labs Reviewed by me
Old Records: Reviewed
Impression/Plan
-
Impression:
75M with h/o AFIB s/p ablation and now s/p PPM and LV appendage occlusion not anticoagulated, CAD, HTN, CHF midly reduced EF presenting with abdominal pain normal lipase but CT scan showing Possible mild acute interstitial edematous pancreatitis.
LFTs normal. Reports drinking 2 bottles of light beer . Denies regular alcohol intake. Will be admitted under hospitalist service, GI consult.
Assessment/plan:
Acute pancreatitis -
Patient presented with abdominal pain and back pain.
- Ct abdomen and pelvis shows:
IMPRESSION:
1. Mild hepatic cirrhosis.
2. Mild intrahepatic biliary dilatation.
3. Possible mild acute interstitial edematous pancreatitis.
4. Chronic granulomatous disease infection in the spleen and liver.
5. Mild chronic bilateral renal disease.
6. Severe calcific atherosclerotic plaque in the abdominal aorta.
7. Moderate diverticulosis in the descending and sigmoid colon.
8. 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
9. Moderate multilevel discogenic degenerative disease and facet joint arthrosis in the lumbar spine.
Patient stated that he only drinks 2 beer weekly and last drink was on .
Patient with similar presentation 1 month ago.
In previous admission lisinopril discontinued as a potential cause for drug-induced pancreatitis.
Patient on furosemide which also can cause drug-induced pancreatitis.
Furosemide will be switched to Bumex on discharge
Normal LFTs.
GI consulted
Low-fat diet
IV fluid, (added Bumex daily)
Pain and nausea control
AFIB - s/p ablation and now ppm dependent. No rate agents. S/P watchman
- Continue vehicle monitor technician
- Patient supposed to follow-up with his cardiology as outpatient for ablation on May 10, 2025.
CAD
- continue aspirin 81
Chronic diastolic CHF
Patient euvolemic, on prn furosemide at home but requested to switch furosemide since it can cause drug-induced pancreatitis.
Will switch furosemide to Bumex
will give Bumex daily while on IV fluid and then discharge the patient on as needed Bumex
Continue losartan
most recent Echo shows:
Normal left ventricular size and function. Left ventricular ejection fraction
is 50-55%.
Moderately dilated left atrium.
Thickened calcified mitral valve leaflets with restricted motion. Known
moderate mitral stenosis. Moderate to severe mitral regurgitation.
Mild aortic regurgitation.
Moderate tricuspid regurgitation.
Compared to previous echo from August 2024, patient is status post Watchman
placement.
Daily weight
CODE STATUS: Full code
DVT prophylaxis: Lovenox
Diet: low fat diet.
Total time spent on today's encounter was 75 minutes which included time spent in counseling the patient/family regarding diagnosis and treatment plan as listed above, goals of care, and symptom management. Case was discussed with nursing staff,
specialists, and care coordinators/case management. All labs and imaging personally reviewed by me. Remainder the time spent in detailed review of previous records, lab data, imaging, and other medical provider documentation.
[2025-03-20] MEDS: NSS 1000 IV ×2 (10:00→23:37)
--- NOTE | 2025-03-20 10:15 | CON.GI ---
Consultation
-
Date/Time Consultation Requested: 03/20/25
Date/Time Consultation Performed: 03/20/25
Requesting Provider:
Performing Provider:
Reason for Consultation: Abdominal pain
Medical History
Chief Complaint / HPI
Chief Complaint: Abdominal pain
History of Present Illness:
Pt is a 75yo with presents with hx mild mitral stenosis/ MR, NIDDM, GERD, HTN, TKR in 04/2023, uncontrolled a flutter with multiple cardiac interventions with prior PVI, ablations and CV, watchman placed october 2024, not on AC presenting with
complaints of abdominal discomfort and back pain starting last evening. As per patient, he came back from a graduation alliance party around 6 PM, he had ham wrap, potato salad, some desserts and later in the evening, he started initially with upper back
pain and then epigastric pain, knot-like sensation, the back pain and abdominal pain as per patient are different. No radiation anywhere else. No nausea or vomiting. No heartburn or trouble swallowing. He had a bowel movement yesterday and
normally his bowel pattern is 1 formed stool a day. No fevers or chills. In the emergency room, he was noted to have normal white count, LFTs and lipase. CT scan of the abdomen and pelvis showed mild hepatic cirrhosis, mild intrahepatic bile duct
dilation, mild acute interstitial pancreatitis, chronic granulomatous disease of the liver and spleen, diverticulosis. He did have similar presentation in February 2025, CT scan in February 2025 for upper abdominal discomfort and elevated white count, subtle
stranding involving head of the pancreas noted but again normal lipase. Nodular contour of the liver noted. IgG4 level was done and was normal. As per patient, in between episodes he felt well and no pain. Generally no acid reflux, does not take
PPI. He has been taking NSAIDs 1 twice a day since December for shoulder surgery. Last drink was on , had 2 beers. As per patient he drinks once every 2 to 4 weeks and not on a regular basis. Since last admission, he went off the lisinopril
and not sure if he is taking Lasix regularly. He does report shortness of breath on minimal exertion. No unintentional weight loss.
EGD 2022, :-Normal esophagus, erythema in antrum without H pylori, hyperplastic gastric body polyp, duodenum without celiac ds on bx.
Colonoscopy 2022-Granularity in the colon and rectum, biopsies without any evidence of inflammation, tubular adenomas removed from the ileocecal valve, cecum, transverse colon, splenic flexure. Diverticulosis, internal hemorrhoids, repeat sugg in 3
yrs
01/2017- diverticulosis, 4 mm polyp TC bx ta. 10/2018 EGD bile gastritis, reg z line, normal esophagus, bx mild chronic inactive gastritis. neg celiac.
Past Medical History
Past Medical History: Other ( Arrhythmias (afib on Xarelto ), GERD, HTN, NIDDM, Valvular Disease (mild mitral stenosis/ MR, osteo) and Other (ZARIA, glaucoma, erectile dysfunction))
Past Surgical History: Other (Cardiac (ablations, failed cardioversion, linq) and Orthopedic (LTKA 04/30/23, shoulder surgery, 2021, hand surgery 2020, right L4, MARISSA 2021))
Social History
Tobacco: Former Smoker
Alcohol: Occasional
Family History
Family History: Reviewed & Not Pertinent
Allergies / Home Medications
Allergy/AdvReac Type Severity Reaction Status Date / Time
amiodarone Allergy sleeplessness, Verified 03/20/25 04:00
acid reflux
azithromycin Allergy Loss of Verified 03/20/25 04:00
smell,
loss of
taste,
metal
taste in
mouth
dofetilide (From Tikosyn) Allergy GERD Verified 03/20/25 04:00
Iodinated Contrast Media Allergy Itching Verified 03/20/25 04:00
(Iodinated Contrast- Oral
and IV Dye)
iodine Allergy Itching Verified 03/20/25 04:00
�Medication �Instructions �Recorded
latanoprost 0.005 % eye drops 1 drp BOTH EYES HS Eye Condition 04/17/23
aspirin 81 mg tablet,delayed 81 mg PO DAILY Blood Clot 10/03/23
release Prevention/Tx
tadalafil 5 mg tablet 5 mg PO DAILYPRN PRN ED 04/08/24
Lactobac no.2-Bifidobac no.1-S. 2 cap PO DAILY 12/21/24
thermo 112.5 billion cell capsule
(Visbiome)
acetaminophen 500 mg tablet 1,000 mg PO BID Pain 12/21/24
fexofenadine 180 mg tablet 180 mg PO DAILY 03/20/25
losartan 50 mg tablet 50 mg PO DAILY 03/20/25
Review of Systems
-
All other systems: A 12 pt ROS was Negative except as stated above in HPI
Vital Signs
Temp Pulse Resp BP Pulse Ox
97.3 F 62 20 158/65 100
03/20/25 10:01 03/20/25 10:01 03/20/25 10:08 03/20/25 10:01 03/20/25 10:01
Physical Exam
Exam
GI: Soft, Non Distended and Tender (Some discomfort in the epigastric area without any guarding or rigidity)
Results
WBC 9.3 10^3/uL (4.8-10.8) 03/20/25 03:17
Hgb 12.7 g/dL (13.0-18.0) L 03/20/25 03:17
Hct 39.7 % (39.0-52.0) 03/20/25 03:17
MCV 89.6 fL (80.0-94.0) 03/20/25 03:17
Plt Count 181 10^3/uL (130-400) 03/20/25 03:17
Absolute Neuts (auto) 5.7 10^3/uL (1.4-6.5) 03/20/25 03:17
Sodium 141 mmol/L (135-145) 03/20/25 03:17
Potassium 4.0 mmol/L (3.5-5.1) 03/20/25 03:17
Chloride 109 mmol/L (98-107) H 03/20/25 03:17
Carbon Dioxide 25 mmol/L (22-30) 03/20/25 03:17
BUN 35 mg/dl (9-20) H 03/20/25 03:17
Creatinine 0.7 mg/dL (0.7-1.3) 03/20/25 03:17
Calcium 9.2 mg/dl (8.4-10.2) 03/20/25 03:17
Total Bilirubin 0.5 mg/dl (0.2-1.3) 03/20/25 03:17
AST 20 U/L (17-59) 03/20/25 03:17
ALT 17 U/L (0-50) 03/20/25 03:17
Alkaline Phosphatase 67 U/L (38-126) 03/20/25 03:17
Lipase 242 U/L (23-300) 03/20/25 03:17
Diagnostic Image Results:
Prior GI Procedures:
EGD:
Colonoscopy:
Assessment / Plan
-
Pt is a 75yo with presents with hx mild mitral stenosis/ MR, NIDDM, GERD, HTN, TKR in 04/2023, uncontrolled afib with multiple cardiac interventions with prior PVI, ablations and CV, watchman , Recent admission in February 2025 for abdominal pain, CT
scan showing mild pancreatitis now presenting with similar complaints. Normal LFTs and lipase, CT scan again showing mild interstitial pancreatitis. IgG4 level done previously in February 2025 within normal range.
Also noted on CAT scan is mild cirrhotic contour of the liver. Outpatient FibroScan was suggested but not done.
EGD 2022, :-Normal esophagus, erythema in antrum without H pylori, hyperplastic gastric body polyp, duodenum without celiac ds on bx.
Colonoscopy 2022-Granularity in the colon and rectum, biopsies without any evidence of inflammation, tubular adenomas removed from the ileocecal valve, cecum, transverse colon, splenic flexure. Diverticulosis, internal hemorrhoids, repeat sugg in 3
yrs
01/2017- diverticulosis, 4 mm polyp TC bx ta. 10/2018 EGD bile gastritis, reg z line, normal esophagus, bx mild chronic inactive gastritis. neg celiac.
01/2017- diverticulosis, 4 mm polyp TC bx ta. 10/2018 EGD bile gastritis, reg z line, normal esophagus, bx mild chronic inactive gastritis. neg celiac.
- Afib
other medical problems:
-HTN
-obesity
-NIDDM
-GERD
-HTN
-mitral stenosis, MR
-Epigastric and back pain with CT scan showing mild interstitial pancreatitis but normal LFTs and lipase.
Previous IgG4 level was normal. No family history of pancreatitis or pancreatic cancer. No recent new medication. Off lisinopril since last admission and takes Lasix sporadically.
Unclear if these abdominal pain episodes are truly related to pancreatitis versus other
Non-smoker, drinks alcohol occasionally as per patient.
Ideally would need MRI to evaluate the pancreas. As per patient, he did get MRI for his shoulder and is not
As per patient, he did get an MRI for his shoulder, pacemaker as far as he remembers is MRI compatible.
Will put the order in for MRI of the abdomen with MRCP.
Check CRP
N.p.o. for now.
Monitor LFTs and lipase. Needs to completely abstain from alcohol, explained to the patient.
- Nodular contour of the liver, rule out cirrhosis
FibroScan as outpatient to evaluate.
If there is cirrhosis, needs workup for underlying liver disease versus cardiac cause for cirrhosis.
This will be done as an outpatient
Will follow
-
-
Thank you for consultation and allowing me to participate in the patient's care. Please call the regeneration operator GI physician during the after hours with any questions or concerns.
[2025-03-20] MEDS: MORPHINE SULFATE 2 MG IV ×2 (12:02→19:14)
[2025-03-20] MEDS: BUMEX 1 MG PO (12:02)
[2025-03-20] MEDS: COZAAR 50 MG PO (12:02)
[2025-03-20] MEDS: ASPIR LOW (ENTERIC COATED) 81 MG PO (13:07)
[2025-03-20] MEDS: TYLENOL 1000 MG PO (19:46)
[2025-03-20] MEDS: XALATAN OPHTHALMIC SOLUTION 1 DROP BOTH EYES (21:33)
[2025-03-21] MEDS: MORPHINE SULFATE 2 MG IV ×2 (02:11→08:45)
--- NOTE | 2025-03-21 02:19 | PTCARENOTE ---
Pt requested for IV fluids to be stopped. Pt states that he is gaining weight and is afraid that all the fluid is just staying in his body. Pt voiding appropriately and requested to speak to a doctor. Pt educated on the use of fluids for his
diagnosis and encouraged to wait to see doctor in the morning to decisions. Pt adamant on getting an answer right now and pt requested for fluids to be stopped, BARLEY STEEPER notified.
[2025-03-21 03:30] VITALS: BP 128/69
[2025-03-21 05:39] VITALS: BMI 34.9
[2025-03-21 07:00] VITALS: BP 140/70
[2025-03-21 07:07] LABS: Hematocrit 37.2 % (39.0-52.0); Hemoglobin 11.4 g/dL (13.0-18.0); Mean Corp Hgb Conc. 30.6 g/dL (33.0-37.0); Mean Corpuscular Hgb 28.3 pg (27.0-31.0); Mean Corpuscular Volume 92.3 fL (80.0-94.0); Mean Platelet Volume 9.7 fL (7.4-10.4); Platelet Count 160 10^3/uL (130-400); Red Blood Cell Count 4.03 10^6/uL (4.70-6.10)
[2025-03-21 07:39] LABS: Blood Urea Nitrogen 23 mg/dl (9-20); Carbon Dioxide 29 mmol/L (22-30); Chloride 108 mmol/L (98-107); Estimated Creatinine Clearance 95 ml/min; Glucose 106 mg/dl (70-99); HDL Cholesterol 49 mg/dl; LDL Cholesterol, Calculated 91 mg/dl; Magnesium 2.1 mg/dl (1.6-2.3); Potassium 4.2 mmol/L (3.5-5.1); Sodium 142 mmol/L (135-145); Total Cholesterol 156 mg/dl (50-199); Triglyceride 82 mg/dl (10-149); Very Low Density Lipoprotein 16 mg/dl (0-30); eGFR > 60.00
[2025-03-21 09:10] LABS: ALT (SGPT) 14 U/L (0-50); AST (SGOT) 13 U/L (17-59); Albumin 3.4 g/dl (3.5-5.0); Alkaline Phosphatase 56 U/L (38-126); Lipase 78 U/L (23-300); Total Bilirubin 0.5 mg/dl (0.2-1.3)
[2025-03-21] MEDS: COZAAR 50 MG PO (10:26)
[2025-03-21] MEDS: CLARITIN 10 MG PO (10:26)
[2025-03-21] MEDS: BUMEX 1 MG PO (10:26)
[2025-03-21] MEDS: VISBIOME 2 CAP PO (10:26)
[2025-03-21] MEDS: TYLENOL 1000 MG PO ×2 (10:26→20:10)
[2025-03-21] MEDS: ASPIR LOW (ENTERIC COATED) 81 MG PO (10:26)
[2025-03-21] MEDS: PROTONIX 40 MG PO (10:27)
--- NOTE | 2025-03-21 10:35 | W.PN.HOSP.TC ---
Today's Communication/Plan
-
await MRI, Echo
stop IVF, continue PO Bumex
Urology eval
Assessment / Plan
Assessment / Plan
Assessment:
Acute pancreatitis
- CT with pancreatitis but lipase normal. MRI pending.
- GI following
- continue low fat diet and pain control
- patient request Lasix be stopped due to potential cause of pancreatitis
Iatrogenic volume overload
Chronic diastolic CHF
- stop IVF
- continue diuretics (Bumex)
- repeat Echo
Possible cirrhosis
- await MRI
- OP Fibrosure scan
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
- Urology eval
- bladder scans/SC protocol. Check PVRs
hx of parox Afib - s/p ablation and now ppm dependent. No rate agents. S/P watchman
- Continue monitoring specialist
- Patient supposed to follow-up with his cardiology as outpatient for ablation on May 10, 2025.
CAD
- continue aspirin 81
DVT ppx: Lovenox
Code: Full
Anticipated Discharge: 24 - 48 hours
Subjective/Interval History
-
Date of Service: March 21, 2025
reports volume overload - up 3lbs
some abdominal discomfort but eating
Objective Data
-
Labs:
Laboratory Results
03/21/25
06:55
WBC 9.0
Hgb 11.4 L
Hct 37.2 L
Plt Count 160
Sodium 142
Potassium 4.2
Chloride 108 H
Carbon Dioxide 29
BUN 23 H
Creatinine 0.7
Glucose 106 H
Calcium 9.0
Total Bilirubin 0.5
AST 13 L
ALT 14
Alkaline Phosphatase 56
Vital Signs:
Vital Signs
Temp Pulse Resp BP Pulse Ox
97.8 F 87 18 140/70 99
03/21/25 07:00 03/21/25 07:00 03/21/25 07:00 03/21/25 07:00 03/21/25 08:10
I&O
03/20/25 03/21/25 03/22/25
06:59 06:59 06:59
Intake Total 2500 / 2500
Output Total 2000 / 1999
Balance 500 / 500
Physical Exam
-
General: No Apparent Distress
HEENT: Normocephalic and Atraumatic
Respiratory: Negative Wheezes
Cardiac: Regular Rhythm and S1/S2
Genito-urinary: No Costovertebral Tender
Neuro: AO x 3
Psych: Calm
Data Reviewed
-
Total Time Spent with Patient (in minutes): 45
Labs: Labs Reviewed by me
[2025-03-21 11:00] VITALS: BP 141/65
--- NOTE | 2025-03-21 13:41 | CM ---
Patient seen bedside, initial assessment completed. Patient is a 75-year-old with past medical history of atrial fibrillation status post PVI, s/p PPM and PPM dependent, recently status post Watchman procedure now off anticoagulation, hypertension,
CHF mildly EF, CAD presenting to the emergency department with with abdominal pain and back pain.
Patient resides w/ spouse and their adult son in a 1st floor, 2 bedroom apartment, no steps to enter. Independent in all areas, grab bar in the bathroom. Denies SNF/HC hx. Engage in OP therapy for shoulder in December and January.
Address, point of contact and insurance verified
PCP: Sebastian Anthony
Pharmacy: [facility]
Patient's LOC changed to IP today per nurse
Patient expressed frustration when initially coming to the hospital in the ambulance, patient reported that it took 10 minutes for him to be handed off from the ambulance crew. Patient stated there are not enough staff and doesn't understand why it
took so long for him to be transferred into the hospital from the ambulance. Patient stated he would like to speak w/ the HVAC INSTALLER regarding this dilemma. CM offered support and stated maybe another manager of change/leader can be available.
CM was informed that rn coronary care unit can speak w/ patient if he would like to as there is not a patient advocate available anymore.
Plan: Home, no needs anticipated
[2025-03-21 15:00] VITALS: BP 133/63
[2025-03-21 15:05] LABS: Urine Albumin Negative (Neg - Trace); Urine Bilirubin Negative (Negative); Urine Character Clear (Clear); Urine Color Yellow; Urine Glucose Negative (Negative); Urine Ketone Negative (Negative); Urine Leukocyte Negative (Negative); Urine Nitrite Negative (Negative); Urine Occult Blood Negative (Negative); Urine Urobilinogen Negative (Neg - 1+)
[2025-03-21] MEDS: MOTRIN 400 MG PO (17:15)
--- NOTE | 2025-03-21 17:28 | W.PN.URO.CBU ---
Today's Communication / Plan
-
no gu intervention
Assessment / Plan
-
mild bph but u/a bladder scan wnl Bladder emptied discussed with pt and no interest in [employer] system mild bph observe
Diagnosis
-
Date of Service: March 21, 2025
-
Patient Diagnosis:bph slow stream
Post Op Day:
Subjective
-
slow stream feels like empties
Objective
-
Vital Signs
Temp Pulse Resp BP Pulse Ox
97.8 F 84 18 133/63 99
03/21/25 15:00 03/21/25 15:00 03/21/25 15:00 03/21/25 15:00 03/21/25 15:00
Intake and Output
03/20/25 03/21/25 03/22/25
06:59 06:59 06:59
Intake Total 2500 / 2500
Output Total 2000 / 2000
Balance 500 / 500
Intake:
Oral fluids 1200 / 1200
IV fluids (Total) 1300 / 1300
Output:
Urine, Voided 1999 / 1999
Laboratory Results
03/21/25 06:55
03/21/25 06:55
Review of Systems
-
: Difficulty Voiding
Physical Exam
-
General - well developed, well nourished, no acute distress
Chest - clear bilaterally
Abdomen - soft, non-tender, positive bowel sounds, no CVAT, no incisional pain or distention
Genitalia - normal
Rectal - normal
Skin - warm & dry with no rash
Neuro - AOx3, no motor deficits
Extremities - no clubbing, no cyanosis, no edema
Incision - clean, dry
Dressing - clean, dry, intact
Care Review
Data Reviewed
Discussed with: Nursing
CT Scan: Image Pers Reviewed
[2025-03-21 19:00] VITALS: BP 146/66
--- NOTE | 2025-03-21 19:30 | W.PN.GI.CBS2 ---
Today's Communication / Plan
-
-Epigastric and back pain with CT scan showing mild interstitial pancreatitis but normal LFTs and lipase.
Previous IgG4 level was normal. No family history of pancreatitis or pancreatic cancer. No recent new medication. Off lisinopril since last admission and takes Lasix sporadically.
Unclear if these abdominal pain episodes are truly related to pancreatitis versus other
Non-smoker, drinks alcohol occasionally as per patient.
MRI/MRCP is pending to evaluate this pancreatitis, pt will need the pacemaker to be turned off and MRI dept working on that. Hopefully MRI tomorrow. NPO past midnight
CRP elevated at 30
On low fat diet
Monitor LFTs and lipase. Needs to completely abstain from alcohol, explained to the patient.
- Nodular contour of the liver, rule out cirrhosis
FibroScan as outpatient to evaluate.
If there is cirrhosis, needs workup for underlying liver disease versus cardiac cause for cirrhosis.
This will be done as an outpatient
Will follow
Assessment / Plan
-
Pt is a 75yo with presents with hx mild mitral stenosis/ MR, NIDDM, GERD, HTN, TKR in 04/2023, uncontrolled afib with multiple cardiac interventions with prior PVI, ablations and CV, watchman , Recent admission in February 2025 for abdominal pain, CT
scan showing mild pancreatitis now presenting with similar complaints. Normal LFTs and lipase, CT scan again showing mild interstitial pancreatitis. IgG4 level done previously in February 2025 within normal range.
Also noted on CAT scan is mild cirrhotic contour of the liver. Outpatient FibroScan was suggested but not done.
EGD 2022, :-Normal esophagus, erythema in antrum without H pylori, hyperplastic gastric body polyp, duodenum without celiac ds on bx.
Colonoscopy 2022-Granularity in the colon and rectum, biopsies without any evidence of inflammation, tubular adenomas removed from the ileocecal valve, cecum, transverse colon, splenic flexure. Diverticulosis, internal hemorrhoids, repeat sugg in 3
yrs
01/2017- diverticulosis, 4 mm polyp TC bx ta. 10/2018 EGD bile gastritis, reg z line, normal esophagus, bx mild chronic inactive gastritis. neg celiac.
01/2017- diverticulosis, 4 mm polyp TC bx ta. 10/2018 EGD bile gastritis, reg z line, normal esophagus, bx mild chronic inactive gastritis. neg celiac.
- Afib
other medical problems:
-HTN
-obesity
-NIDDM
-GERD
-HTN
-mitral stenosis, MR
-Epigastric and back pain with CT scan showing mild interstitial pancreatitis but normal LFTs and lipase.
Previous IgG4 level was normal. No family history of pancreatitis or pancreatic cancer. No recent new medication. Off lisinopril since last admission and takes Lasix sporadically.
Unclear if these abdominal pain episodes are truly related to pancreatitis versus other
Non-smoker, drinks alcohol occasionally as per patient.
MRI/MRCP is pending to evaluate this pancreatitis, pt will need the pacemaker to be turned off and MRI dept working on that. Hopefully MRI tomorrow. NPO past midnight
CRP elevated at 30
On low fat diet
Monitor LFTs and lipase. Needs to completely abstain from alcohol, explained to the patient.
- Nodular contour of the liver, rule out cirrhosis
FibroScan as outpatient to evaluate.
If there is cirrhosis, needs workup for underlying liver disease versus cardiac cause for cirrhosis.
This will be done as an outpatient
Will follow
Subjective
Subjective
Date of Service: March 21, 2025
Patient reports some discomfort in the upper abdomen without any nausea or vomiting. No bowel movement yet.
Objective
Data Reviewed
Laboratory Data:
Laboratory Results
03/21/25 06:55
03/21/25 06:55
Laboratory Results
Magnesium 2.1 mg/dl (1.6-2.3) 03/21/25 06:55
Total Bilirubin 0.5 mg/dl (0.2-1.3) 03/21/25 06:55
AST 13 U/L (17-59) L 03/21/25 06:55
ALT 14 U/L (0-50) 03/21/25 06:55
Alkaline Phosphatase 56 U/L (38-126) 03/21/25 06:55
Lipase 78 U/L (23-300) 03/21/25 06:55
Vital Signs and I&O:
Vital Signs
Temp Pulse Resp BP Pulse Ox
97.8 F 84 18 133/63 99
03/21/25 15:00 03/21/25 15:00 03/21/25 15:00 03/21/25 15:00 03/21/25 15:00
I&O
03/20/25 03/21/25 03/22/25
06:59 06:59 06:59
Intake Total 2500 / 2500
Output Total 2000 / 2000 900 / 900
Balance 500 / 500 -900 / -900
Physical Exam
Physical Exam
GI: Soft, Non Distended and Non Tender
[2025-03-21] MEDS: MIRALAX 17 GRAMS PO (20:08)
[2025-03-21] MEDS: XALATAN OPHTHALMIC SOLUTION 1 DROP BOTH EYES (21:16)
[2025-03-21 23:00] VITALS: BP 137/67
[2025-03-22 03:00] VITALS: BP 156/78
[2025-03-22] MEDS: SENOKOT-S 1 TABLET PO ×2 (04:09→08:23)
[2025-03-22] MEDS: TYLENOL 650 MG PO ×2 (04:09→16:46)
[2025-03-22] MEDS: DULCOLAX 10 MG RECTAL (04:10)
[2025-03-22 06:00] VITALS: BMI 34.1
[2025-03-22 06:32] LABS: Hematocrit 36.8 % (39.0-52.0); Hemoglobin 11.7 g/dL (13.0-18.0); Mean Corp Hgb Conc. 31.8 g/dL (33.0-37.0); Mean Corpuscular Hgb 28.7 pg (27.0-31.0); Mean Corpuscular Volume 90.2 fL (80.0-94.0); Mean Platelet Volume 9.3 fL (7.4-10.4); Platelet Count 158 10^3/uL (130-400); Red Blood Cell Count 4.08 10^6/uL (4.70-6.10); Red Cell Dist. Width 14.7 % (11.5-14.5); White Blood Cell Count 8.9 10^3/uL (4.8-10.8)
[2025-03-22 06:58] LABS: ALT (SGPT) 12 U/L (0-50); AST (SGOT) 12 U/L (17-59); Albumin 3.5 g/dl (3.5-5.0); Alkaline Phosphatase 63 U/L (38-126); Blood Urea Nitrogen 21 mg/dl (9-20); Calcium 9.2 mg/dl (8.4-10.2); Carbon Dioxide 32 mmol/L (22-30); Chloride 106 mmol/L (98-107); Estimated Creatinine Clearance 94 ml/min; Glucose 108 mg/dl (70-99); Lipase 38 U/L (23-300); Potassium 4.5 mmol/L (3.5-5.1); Sodium 139 mmol/L (135-145); Total Bilirubin 0.9 mg/dl (0.2-1.3); Total Protein 6.1 g/dl (6.3-8.2); eGFR > 60.00
[2025-03-22 07:00] VITALS: BP 154/74
[2025-03-22] MEDS: VISBIOME 2 CAP PO (07:58)
[2025-03-22] MEDS: COZAAR 50 MG PO (07:59)
[2025-03-22] MEDS: BUMEX PO ×2 (07:59→08:34)
[2025-03-22] MEDS: CLARITIN 10 MG PO (07:59)
[2025-03-22] MEDS: PROTONIX 40 MG PO (07:59)
[2025-03-22] MEDS: TYLENOL 1000 MG PO (07:59)
[2025-03-22] MEDS: ASPIR LOW (ENTERIC COATED) 81 MG PO (07:59)
[2025-03-22] MEDS: CITROMA 300 ML PO (08:23)
--- NOTE | 2025-03-22 10:07 | W.PN.HOSP.TC ---
Today's Communication/Plan
-
await MRI
Assessment / Plan
Assessment / Plan
Echo: Normal left ventricular wall thickness. Normal left ventricular chamber size.
Normal left ventricular systolic function. Left ventricular ejection fraction
is 59% by Oglesby's method. Stage II diastolic dysfunction suggestive of
abnormal relaxation and increased filling pressures.
Dense Mitral annular calcification. Thickened mitral valve leaflets with
decreased leaflet excursion. Moderate mitral stenosis with a mean gradient of
12 mmHg and mitral valve area ranging from 1.5 cm2 to 2.2 cm. There is at
least mild to moderate mitral regurgitation which may be underestimated due to
mitral calcification.
Mildly dilated left atrium.
Trileaflet aortic valve. Thickened aortic valve with normal leaflet excursion.
Calcified leaflet tips. Mild aortic regurgitation.
Since echo August 2024, there is no significant change. MR may have improved
from moderate to severe to at least mild to moderate. Difficult to assess MR
given mitral calcification.
Assessment:
Acute pancreatitis
- CT with pancreatitis but lipase normal. MRI pending.
- GI following
- continue low fat diet and pain control
- patient request Lasix be stopped due to potential cause of pancreatitis
Iatrogenic volume overload
Chronic diastolic CHF
- stop IVF
- continue diuretics (Bumex); weight improving
- repeat Echo as above
- follows with Dr. Lei [facility]
Possible cirrhosis
- await MRI
- OP Fibrosure scan
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
- Urology evaluated, patient with mild BPH. patient declined Flomax.
- bladder scans/SC protocol
hx of parox Afib - s/p ablation and now ppm dependent. No rate agents. S/P watchman
- Continue ekg monitor
- Patient supposed to follow-up with his cardiology as outpatient for ablation on May 10, 2025.
- follows with Dr. Lei [facility]
CAD
- continue aspirin 81
DVT ppx: Lovenox
Code: Full
Anticipated Discharge: Within 24 hours
Subjective/Interval History
-
Date of Service: March 22, 2025
resting comfortably
had a BM today
Objective Data
-
Labs:
Laboratory Results
03/22/25
06:21
WBC 8.9
Hgb 11.7 L
Hct 36.8 L
Plt Count 158
Sodium 139
Potassium 4.5
Chloride 106
Carbon Dioxide 32 H
BUN 21 H
Creatinine 0.7
Glucose 108 H
Calcium 9.2
Total Bilirubin 0.9
AST 12 L
ALT 12
Alkaline Phosphatase 63
Vital Signs:
Vital Signs
Temp Pulse Resp BP Pulse Ox
98.2 F 75 12 154/74 97
03/22/25 07:00 03/22/25 07:00 03/22/25 07:00 03/22/25 07:00 03/22/25 07:00
I&O
03/21/25 03/22/25 03/23/25
06:59 06:59 06:59
Intake Total 2500 / 2500 240 / 240
Output Total 2000 / 2000 900 / 900
Balance 500 / 500 -660 / -660
Physical Exam
-
General: No Apparent Distress
HEENT: Normocephalic and Atraumatic
Respiratory: Negative Wheezes
Cardiac: Regular Rhythm and S1/S2
GI: Soft
Genito-urinary: No Costovertebral Tender
Neuro: AO x 3
Psych: Calm
Data Reviewed
-
Total Time Spent with Patient (in minutes): 42
Labs: Labs Reviewed by me
[2025-03-22 11:00] VITALS: BP 149/82
[2025-03-22 16:24] VITALS: BP 149/79
--- NOTE | 2025-03-22 16:58 | W.DS.TRANS ---
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
-
Discharge Instructions:
Discharge Diagnosis/Procedures pancreatitis, possible cirrhosis
Diet Low Fat
Activity As tolerated
Instructions:
Stand-Alone Forms:
Changes to Home Medications: No
Discharge Medications:
DC Medications w/original date entered in [facility]
latanoprost 0.005 % eye drops 1 drp BOTH EYES HS Eye Condition 04/17/23
aspirin 81 mg tablet,delayed release 81 mg PO DAILY Blood Clot Prevention/Tx 10/03/23
tadalafil 5 mg tablet 5 mg PO DAILYPRN PRN ED 04/08/24
Lactobac no.2-Bifidobac no.1-S. thermo 112.5 billion cell capsule (Visbiome) 2 cap PO DAILY Supplement 12/21/24
acetaminophen 500 mg tablet 1,000 mg PO BID Pain 12/21/24
fexofenadine 180 mg tablet 180 mg PO DAILY Allergies 03/20/25
losartan 50 mg tablet 50 mg PO DAILY Blood Pressure 03/20/25
bumetanide 1 mg tablet 1 mg PO DAILY #30 tabs 03/22/25
pantoprazole 40 mg tablet,delayed release 40 mg PO DAILY #30 tabs 03/22/25
Home Medication Changes
Pending Results: No
Total time spent discharging patient (in min): 41
--- NOTE | 2025-03-22 17:06 | W.PN.GI.CBS2 ---
Today's Communication / Plan
-
discharge - outpatient GI follow up
Assessment / Plan
-
Pt is a 75yo with presents with hx mild mitral stenosis/ MR, NIDDM, GERD, HTN, TKR in 04/2023, uncontrolled afib with multiple cardiac interventions with prior PVI, ablations and CV, watchman , Recent admission in February 2025 for abdominal pain, CT
scan showing mild pancreatitis now presenting with similar complaints. Normal LFTs and lipase, CT scan again showing mild interstitial pancreatitis. IgG4 level done previously in February 2025 within normal range.
Also noted on CAT scan is mild cirrhotic contour of the liver. Outpatient FibroScan was suggested but not done.
EGD 2022, :-Normal esophagus, erythema in antrum without H pylori, hyperplastic gastric body polyp, duodenum without celiac ds on bx.
Colonoscopy 2022-Granularity in the colon and rectum, biopsies without any evidence of inflammation, tubular adenomas removed from the ileocecal valve, cecum, transverse colon, splenic flexure. Diverticulosis, internal hemorrhoids, repeat sugg in 3
yrs
01/2017- diverticulosis, 4 mm polyp TC bx ta. 10/2018 EGD bile gastritis, reg z line, normal esophagus, bx mild chronic inactive gastritis. neg celiac.
01/2017- diverticulosis, 4 mm polyp TC bx ta. 10/2018 EGD bile gastritis, reg z line, normal esophagus, bx mild chronic inactive gastritis. neg celiac.
- Afib
other medical problems:
-HTN
-obesity
-NIDDM
-GERD
-HTN
-mitral stenosis, MR
-Epigastric and back pain with CT scan showing mild interstitial pancreatitis but normal LFTs and lipase.
Previous IgG4 level was normal. No family history of pancreatitis or pancreatic cancer. No recent new medication. Off lisinopril since last admission and takes Lasix sporadically.
Unclear if these abdominal pain episodes are truly related to pancreatitis versus other
Non-smoker, drinks alcohol occasionally as per patient.
MRI/MRCP done today no active pancreatitis - however given recurrent episodes of ? pancreatitis likely benefit from EGD/EUS to set up outpatient can also discuss with Dr. Tucker
CRP elevated at 30
On low fat diet
Monitor LFTs and lipase. Re ETOH previously would drink more regularly 6-7 years ago only drinks 2 drinks a day twice a week now.
- Nodular contour of the liver, rule out cirrhosis
FibroScan as outpatient to evaluate.
If there is cirrhosis, needs workup for underlying liver disease versus cardiac cause for cirrhosis.
This will be done as an outpatient
Patient being discharged today d/w hospitalist
I sent ms to set up outpatient appt for patient
Subjective
Subjective
Date of Service: March 22, 2025
no complaints tolerating diet
Objective
Data Reviewed
Laboratory Data:
Laboratory Results
03/22/25 06:21
03/22/25 06:21
Laboratory Results
Magnesium 2.1 mg/dl (1.6-2.3) 03/21/25 06:55
Total Bilirubin 0.9 mg/dl (0.2-1.3) 03/22/25 06:21
AST 12 U/L (17-59) L 03/22/25 06:21
ALT 12 U/L (0-50) 03/22/25 06:21
Alkaline Phosphatase 63 U/L (38-126) 03/22/25 06:21
Lipase 38 U/L (23-300) 03/22/25 06:21
Vital Signs and I&O:
Vital Signs
Temp Pulse Resp BP Pulse Ox
97.5 F 84 18 149/79 98
03/22/25 16:24 03/22/25 16:24 03/22/25 16:24 03/22/25 16:24 03/22/25 11:00
I&O
03/21/25 03/22/25 03/23/25
06:59 06:59 06:59
Intake Total 2500 / 2500 240 / 240
Output Total 2000 / 1999 900 / 900
Balance 500 / 500 -660 / -660
Physical Exam
Physical Exam
GI: Non Distended and Non Tender
== END 2025-03-22 18:07 | disposition home or self-care (01) | DRG 439 ==
LOC: 4 WEST ACU 09:51
PROVIDERS: ADMITTING PHYSICIAN General Practice; ATTENDING PHYSICIAN Internal Medicine; CONSULT PHYSICIAN Internal Medicine Gastroenterology; CONSULT PHYSICIAN Specialist; EMERGENCY PHYSICIAN Student in an Organized Health Care Education/Training Program; FAMILY PHYSICIAN Family Medicine
DX: K85.80 Other acute pancreatitis without necrosis or infection (principal); I13.0 Hypertensive heart and chronic kidney disease with heart failure and stage 1 through stage 4 chronic kidney disease, or unspecified chronic kidney disease; I50.32 Chronic diastolic (congestive) heart failure; I47.10 Supraventricular tachycardia, unspecified; I48.4 Atypical atrial flutter; K74.60 Unspecified cirrhosis of liver; I25.10 Atherosclerotic heart disease of native coronary artery without angina pectoris; D71 Functional disorders of polymorphonuclear neutrophils; N18.9 Chronic kidney disease, unspecified; I08.3 Combined rheumatic disorders of mitral, aortic and tricuspid valves; K57.30 Diverticulosis of large intestine without perforation or abscess without bleeding; N40.0 Benign prostatic hyperplasia without lower urinary tract symptoms; N32.0 Bladder-neck obstruction; M51.360 Other intervertebral disc degeneration, lumbar region with discogenic back pain only; I48.0 Paroxysmal atrial fibrillation; E11.22 Type 2 diabetes mellitus with diabetic chronic kidney disease; E66.9 Obesity, unspecified; K21.9 Gastro-esophageal reflux disease without esophagitis; Z68.34 Body mass index [BMI] 34.0-34.9, adult; Z79.01 Long term (current) use of anticoagulants; Z79.82 Long term (current) use of aspirin; Z79.899 Other long term (current) drug therapy; Z87.891 Personal history of nicotine dependence; Z95.0 Presence of cardiac pacemaker
CPT/HCPCS: 74177; 74183; 80053; 80061; 81003; 83690; 83735; 85025; 85027; 86140; 93005; 93306; 96374; 96375; 99285; A9575; Q9950; Q9967

== ENCOUNTER → 2025-03-29 12:44 | Outpatient (REF) | payer MEDICARE, OTHER, SELFPAY ==
[2025-04-01 02:33] LABS: IgG Subclass 1 474 mg/dL (240-1118); IgG Subclass 2 330 mg/dL (124-549); IgG Subclass 3 38 mg/dL (21-134); IgG Subclass 4 52 mg/dL (1-123)
== END ==
LOC: REG 12:44
PROVIDERS: ATTENDING PHYSICIAN Internal Medicine Gastroenterology; FAMILY PHYSICIAN Family Medicine
DX: K86.1 Other chronic pancreatitis (principal)
CPT/HCPCS: 36415; 82787